=== PATIENT | female | born 1985 | race Caucasian/White ===

== ENCOUNTER 2020-03-04 02:42 | Emergency (ER) | payer MEDICAID, SELFPAY ==
[2020-03-04 02:44] VITALS: BP 130/96; PULSE 100; RESP 18; TEMP 37.2; O2SAT 98; BMI 38.6
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
[2020-03-04 05:35] VITALS: BP 101/46; PULSE 84; RESP 16; O2SAT 98
== END 2020-03-04 07:16 | disposition home or self-care (01) ==
PROVIDERS: Emergency Provider Emergency Medicine; PCP Nurse Practitioner Family
DX: S00.83XA Contusion of other part of head, initial encounter (principal); Y04.2XXA Assault by strike against or bumped into by another person, initial encounter; Y93.9 Activity, unspecified; Y92.9 Unspecified place or not applicable; Y99.9 Unspecified external cause status; Z72.0 Tobacco use
CPT/HCPCS: 70450; 70486; 99284

== ENCOUNTER 2020-04-24 15:35 | Emergency (ER) | payer MEDICAID, SELFPAY ==
[2020-04-24 15:36] VITALS: BP 133/76; PULSE 102; RESP 18; TEMP 36.4; O2SAT 96; BMI 37.7
--- NOTE | 2020-04-24 15:40 | RAD_ITS ---
STUDY: X-RAY - RIGHT FOOT CLINICAL: Female, 34 years old. Pt. dropped a heavy suitcase on her foot two weeks ago, pain and swelling TECHNIQUE: 3 view(s) of the foot. COMPARISON: None. FINDINGS: Normal talus, calcaneus, and tarsal bones. Normal visualized subtalar, talonavicular, calcaneocuboid, tarsal and tarsometatarsal articulations. Nondisplaced transverse fracture through the mid shaft of the fourth metatarsal. There is degenerative arthrosis of the metatarsophalangeal joint of the hallux with a hallux valgus deformity. Normal tibial and fibular sesamoid bones. Normal interphalangeal joint of the great toe. Normal phalanges of the great toe. Normal second through fifth metatarsophalangeal joints. Normal interphalangeal joints and phalanges of the lesser toes. Soft tissue swelling. RAD/Foot min 3 Views IMPRESSION: Nondisplaced transverse fracture through the midshaft of the fourth metatarsal with overlying soft tissue swelling. Hallux valgus deformity. Electronically Signed: Jonah Muse, at 15:58 EDT , Service support ,
--- NOTE | 2020-04-24 16:31 | ED.VIS.GEN ---
History of Present Illness Chief Complaint: Lower Extremity Injury Informant: Patient Narrative: Patient was being honest with me she tells me 2 weeks ago a pallet skid ran over her foot, she told everyone it was a suitcase because she wanted to keep working. She is on her feet at 2 jobs and continues to work but today the pain was too bad and she had to leave work early. She is complaining of right foot pain, no other injuries. Past Medical History - Allergies and Home Meds Allergies/Adverse Reactions: Allergies levofloxacin [From Levaquin] Allergy (Verified 04/24/20 15:40) Rash Penicillins Allergy (Verified 04/24/20 15:40) Nausea Primary Care Physician: Sancho Teresa NP-C [Primary Care Provider] - Past Medical History: None Smoking Status: Current every day smoker Review of Systems Musculoskeletal: Reports: Extremity Pain Skin: Denies: Abrasions Neurological: Denies: Weakness, Parasthesia Hematologic: Denies: Easy bruising, Easy bleeding Physical Exam Vital Signs/Narrative: Vital Signs Temp Pulse Resp BP Pulse Ox 04/24/20 15:36 97.5 F L 102 H 18 133/76 H 96 General: Well nourished, Well developed Head: Normocephalic, Atraumatic Respiratory: No distress Back: Nontender Extremities: - - There is tenderness over the midfoot on the fourth metatarsal region. There is some swelling. No laceration. Skin: Normal color, No rash Neurological: Normal Strength, Normal Sensation Diagnostic/Tx/Re-eval Right foot x-ray interpreted by me and the radiologist reveals a fourth metatarsal transverse fracture. - Medical Decision Making Patient will be placed in a boot orthosis. I will refer her to podiatry. She is not to walk on it until being seen by podiatry she is refusing crutches. I told her she needs to take time off work I will give her a note for the rest of the week since this is Thursday it should give her enough time to see podiatry and come up with the plan. I explained to her multiple times that she cannot walk on it and she cannot go back to work until cleared by podiatry. She stated back to me that she understands. ED Disposition - Plan for ED Patient: Disposition: Home or Assisted Living Diagnosis: Foot fracture, right Instructions: ED FOOT FRACTURE Prescriptions: Oxycodone HCl/Acetaminophen [Percocet 5/325] 1 tab PO Q6H PRN PRN 3 Days #12 tab PRN Reason: Pain Prescription Printed Referrals: Chato Summers DPM [STAFF PHYSICIAN] - 3-5 Days
[2020-04-24 16:47] VITALS: RESP 18
== END 2020-04-24 16:50 | disposition home or self-care (01) ==
LOC: ED 16:52
PROVIDERS: Emergency Provider Emergency Medicine; PCP Nurse Practitioner Family
DX: S92.344A Nondisplaced fracture of fourth metatarsal bone, right foot, initial encounter for closed fracture (principal); W31.89XA Contact with other specified machinery, initial encounter; Y93.89 Activity, other specified; Y92.89 Other specified places as the place of occurrence of the external cause; Y99.0 Civilian activity done for income or pay; F17.200 Nicotine dependence, unspecified, uncomplicated
CPT/HCPCS: 73630; 99282

== ENCOUNTER 2020-05-22 13:30 | Emergency (ER) | payer MEDICAID, SELFPAY ==
[2020-05-22 13:30] VITALS: BP 137/68; PULSE 89; RESP 16; TEMP 36.5; O2SAT 99; BMI 36.2
--- NOTE | 2020-05-22 14:21 | ED.DCSUM_ITS ---
History of Present Illness Chief Complaint: Headache Informant: Patient Onset: Days Context: Gradual Onset Timing: Continuous Current Severity: Moderate Maximum Severity: Moderate Narrative: The patient is a 34-year-old female with medical history significant for migraine that presents to the emergency department migraine headache. Patient states she is had a dull progressive headache since Thursday. She states on Thursday, she had a low-grade fever. She states she took Tylenol and abated. She noticed that she had a cold sore inside her mouth. She states that that is since resolved. She said she was not a lot of work because she had a fever. She states the migraine has been constant and that is the reason that she came in. She denies neck pain. She denies any weakness or numbness. She denies any other infectious symptoms. She states today, she was actually feeling improved but still had a mild migraine. Prior similar symptoms: Yes Recent Illness/Hospitalization: No Past Medical History - Allergies and Home Meds Allergies/Adverse Reactions: Allergies levofloxacin [From Levaquin] Allergy (Verified 05/22/20 13:33) Rash Penicillins Allergy (Verified 05/22/20 13:33) Nausea Primary Care Physician: Sancho Teresa SENIOR C SOFTWARE DEVELOPER, SENIOR C SOFTWARE DEVELOPER-C [Primary Care Provider] - Prior records reviewed: Yes Past Medical History: - - Neuropathy Surgical History: noncontributory Smoking Status: Current every day smoker Review of Systems General: Reports: Fever. Denies: Chills, Sweats Eyes: Denies: Visual changes - bilaterally, Diplopia ENT: Denies: Rhinorrhea, Sore throat Cardiovascular: Denies: Chest pain, Palpitations Respiratory: Denies: Dyspnea, Cough, Dyspnea on exertion Gastrointestinal: Reports: Nausea. Denies: Abdominal pain, Vomiting, Diarrhea, Melena, Hematochezia Genitourinary: Denies: Dysuria, Hematuria, Frequency Musculoskeletal: Denies: Back pain, Extremity Pain Skin: Denies: Rash, Wounds Neurological: Reports: Headache. Denies: Weakness, Numbness Physical Exam Vital Signs/Narrative: Vital Signs Temp Pulse Resp BP Pulse Ox 05/22/20 13:30 97.7 F L 89 16 137/68 H 99 Inital Vital Signs reviewed: Yes General: Well nourished, Well developed, No Acute Distress Head: Normocephalic, Atraumatic Eyes: Perrl, EOMI ENT: Moist mucous membranes, No rhinorrhea Neck: Supple, Nontender Cardiovascular: Regular rate, Regular rhythm, No murmurs Respiratory: No distress, CTA bilaterally, Chest nontender Abdomen: Soft, Nontender, Nondistended, Normal bowel sounds Back: Nontender, Normal Inspection Extremities: Nontender, No edema Skin: Normal color, No rash Neurological: Alert, Oriented x3, Cranial nerves II-XII grossly intact, Normal Strength, Normal Sensation Psychological: Normal affect, Normal Mood Diagnostic/Tx/Re-eval - Medical Decision Making The patient presents with typical migraine headache. She is not meningitic. She is not encephalopathic. She states today she is actually starting to feel better. The patient was treated with migraine abortive medications. On reevaluation, she is feeling improved. At this point, I do feel that she is safe for outpatient follow-up. Again, her neurologic exam is reassuring. She will be discharged home. Impression 1. Migraine headache ED Disposition - Plan for ED Patient: Instructions: ED, Migraine (Classical) Referrals: Sancho Teresa NP, SENIOR C SOFTWARE DEVELOPER-C [Primary Care Provider] -
[2020-05-22] MEDS: 0.9% Normal Saline 1,000 ML 999 ML IV (14:58)
[2020-05-22] MEDS: proCHLORPERazine 10 MG/2 ML Vial IV (14:59)
[2020-05-22] MEDS: Ketorolac 15 MG/ML Vial IV (14:59)
[2020-05-22] MEDS: DiphenhydrAMINE 50 MG/ML Syringe IV (14:59)
[2020-05-22 15:49] VITALS: BP 119/78; PULSE 84; RESP 18; O2SAT 98
--- NOTE | 2020-05-22 15:50 | ED.RN ---
THIS NURSE REVIEWED D/C INSTRUCTIONS WITH PT. PT VERBALIZED UNDERSTANDING OF INSTRUCTIONS. IV D/C. IV CATHETER INTACT. PT TOLERATED WELL. PT DENIES FURTHER NEEDS OR QUESTIONS AT THIS TIME. PT AMBULATES FROM ROOM ON OWN WITHOUT ASSISTANCE FROM STAFF
== END 2020-05-22 15:52 | disposition home or self-care (01) ==
PROVIDERS: Emergency Provider Emergency Medicine; PCP Nurse Practitioner Family
DX: G43.909 Migraine, unspecified, not intractable, without status migrainosus (principal); R50.9 Fever, unspecified; G62.9 Polyneuropathy, unspecified; F17.200 Nicotine dependence, unspecified, uncomplicated; Z79.899 Other long term (current) drug therapy
CPT/HCPCS: 96361; 96374; 96375; 99284; J7030; A4216

== ENCOUNTER 2020-06-14 15:38 | Emergency (ER) | payer MEDICAID, SELFPAY ==
[2020-06-14 15:38] VITALS: BP 136/82; PULSE 78; RESP 18; TEMP 36.8; O2SAT 100; BMI 36.6
[2020-06-14 15:56] LABS: Mucous, Urine 0 SEEN /hpf (<or=2+)
[2020-06-14 16:01] LABS: Color, Urine Yellow (Yellow); Glucose, Dipstick Normal (Normal); Ketone-Dipstick Negative (Negative); Leukocyte Esterase-Dipstick 500 /ul (Negative); Nitrite-Dipstick Negative (Negative); Occult Blood-Urine 25 /ul (Negative); Protein-Dipstick 15 mg/dl (Negative); Urine Bilirubin Dipstick Negative (Negative); Urine Clarity Cloudy (Clear); Urine Urobilinogen 1 mg/dl (Normal)
[2020-06-14 16:07] LABS: Amorphous Sediment 1+ PHOS; Bacteria RARE /hpf (None Seen); Internal QC Validated? YES +Cl - CLEAR BKGD; Pregnancy, Urine Negative Negative; Red Blood Cells-Urine 0-5 SEEN /hpf (0-5); Squamous Epithelial Cells - UA 10-25 SEEN /hpf (5-10); White Blood Cells 25-50 SEEN /hpf (0-5)
--- NOTE | 2020-06-14 16:15 | ED.DCSUM_ITS ---
History of Present Illness Chief Complaint: Complaint Informant: Patient Onset: Days Context: Gradual Onset Timing: Continuous Current Severity: Mild Maximum Severity: Moderate Narrative: Patient is a 34-year-old female with history of neuropathy that presents to the emergency department with dysuria, urinary frequency, and vaginal pain. Patient states that she is had prior herpes outbreaks in the past. She states that the past 10 days, she has been having difficulty urinating and pain when she goes. She also noticed a rash on the left side of her labia. She denies any fevers or chills. She is otherwise been in her normal state of health. Prior similar symptoms: No Recent Illness/Hospitalization: No Past Medical History - Allergies and Home Meds Allergies/Adverse Reactions: Allergies levofloxacin [From Levaquin] Allergy (Verified 06/14/20 15:41) Rash Penicillins Allergy (Verified 06/14/20 15:41) Nausea Primary Care Physician: Sancho Teresa POWER SAW MECHANIC, POWER SAW MECHANIC-C [Primary Care Provider] - Prior records reviewed: Yes Past Medical History: - - Neuropathy Surgical History: noncontributory Smoking Status: Current every day smoker Review of Systems General: Denies: Chills, Fever, Sweats Eyes: Denies: Visual changes - bilaterally, Diplopia ENT: Denies: Rhinorrhea, Sore throat Cardiovascular: Denies: Chest pain, Palpitations Respiratory: Denies: Dyspnea, Cough, Dyspnea on exertion Gastrointestinal: Denies: Abdominal pain, Nausea, Vomiting, Diarrhea, Melena, Hematochezia Genitourinary: Reports: Dysuria, Frequency. Denies: Hematuria Musculoskeletal: Denies: Back pain, Extremity Pain Skin: Denies: Rash, Wounds Neurological: Denies: Headache, Weakness, Numbness Physical Exam Vital Signs/Narrative: Vital Signs Temp Pulse Resp BP Pulse Ox 06/14/20 15:38 98.3 F 78 18 136/82 H 100 Inital Vital Signs reviewed: Yes General: Well nourished, Well developed, No Acute Distress Head: Normocephalic, Atraumatic Eyes: Perrl, EOMI ENT: Moist mucous membranes, No rhinorrhea Neck: Supple, Nontender Cardiovascular: Regular rate, Regular rhythm, No murmurs Respiratory: No distress, CTA bilaterally, Chest nontender Abdomen: Soft, Nontender, Nondistended, Normal bowel sounds Back: Nontender, Normal Inspection Extremities: Nontender, No edema Skin: Normal color, No rash Neurological: Alert, Oriented x3, Cranial nerves II-XII grossly intact, Normal Strength, Normal Sensation Psychological: Normal affect, Normal Mood Diagnostic/Tx/Re-eval - Medical Decision Making Pelvic exam was done with female nurse flight controls engineer. The patient does have vesicles consistent with herpes outbreak along the left outer labia and the perineum. There is no secondary cellulitis. Urine was obtained which did show some evidence of acute cystitis. The patient is not . At this point, she will be treated with Valtrex and Macrobid. She is comfortable with this plan of care and we discharged home. Impression 1. Acute cystitis 2. Genital herpes outbreak ED Disposition - Plan for ED Patient: Instructions: ED Urethritis Infec Vs Inflam Adult Female Prescriptions: Nitrofurantoin Macrocrystals [Macrobid] 100 mg PO Q12 #14 cap Prescription Printed Valacyclovir HCl [Valacyclovir] 1,000 mg PO TID #21 tab Prescription Printed Referrals: Sancho Teresa NP, POWER SAW MECHANIC-C [Primary Care Provider] -
[2020-06-14 16:23] VITALS: BP 127/74; PULSE 90; RESP 16; O2SAT 100
== END 2020-06-14 16:24 | disposition home or self-care (01) ==
LOC: ED 16:06
PROVIDERS: Emergency Provider Emergency Medicine; PCP Nurse Practitioner Family
DX: N30.00 Acute cystitis without hematuria (principal); A60.04 Herpesviral vulvovaginitis; G62.9 Polyneuropathy, unspecified; Z79.899 Other long term (current) drug therapy; F17.200 Nicotine dependence, unspecified, uncomplicated
CPT/HCPCS: 81001; 81025; 99281; 99283

== ENCOUNTER 2020-06-22 15:45 | Emergency (ER) | payer MEDICAID, SELFPAY ==
[2020-06-22 15:46] VITALS: BP 126/78; PULSE 86; RESP 15; TEMP 36.4; O2SAT 98; BMI 36.6
--- NOTE | 2020-06-22 16:10 | RAD_ITS ---
STUDY: X-RAY - LEFT KNEE REASON FOR EXAM: Female, 34 years old. PAIN MEDIALLY S/P FALLING DOWN STAIRS LAST NIGHT TECHNIQUE: For view(s) of the knee. COMPARISON: None. FINDINGS: Normal visualized distal femur. Normal visualized proximal tibia and fibula. Normal proximal tibiofibular articulation. There is mild degenerative arthrosis of the medial femorotibial compartment. There is severe degenerative arthrosis of the lateral femorotibial compartment with severe joint space narrowing. There is moderate degenerative arthrosis of the patellofemoral articulation. The soft tissue structures are unremarkable. RAD/Knee 4 or More Views IMPRESSION: Degenerative arthrosis. Electronically Signed: Marvin Kearns MD at 16:27 EDT Tel , Service support ,
--- NOTE | 2020-06-22 17:08 | ED.VISSUMM ---
- ER Visit Summary Date of Service: 06/22/20 Chief Complaint: Left knee pain History of Present Illness: The patient is a 34 F who presents with left knee pain that began after a fall yesterday. Patient states she fell approximately 30 steps. Patient states her pain is worse today. Patient describes her pain as throbbing, aching, and pulling. Patient states her pain is worse with standing. Patient states nothing has helped her pain. Patient denies any paresthesias or weakness. Patient denies any head injury or loss of consciousness. Physical Examination: Vital signs are stable. Patient is afebrile. Patient is in no acute distress. Musculoskeletal exam reveals tenderness over the medial aspect of the left knee. There is no bony crepitance or step-off. There is no deformity noted. Range of motion was limited in flexion secondary to pain. There is no laxity however, the patient is guarding on exam. Sensation was intact to light touch bilateral lower extremities. Strength is 5/5 bilaterally in lower extremities. Posterior tibial pulses are equal bilateral. Test Results: X-rays of the left knee were obtained. There is no acute fracture. These were interpreted by the radiologist and reviewed by myself. Emergency Department Course and Treatment: Patient was given a dose of Pratt here. Patient was given a knee immobilizer. Patient was instructed to ice and elevate the left knee. Patient was given a prescription for short course of Pratt. Patient was instructed to follow-up with her primary care physician in 5 to 7 days. Patient understood and was agreeable with the plan. All questions were answered. Disposition: Discharge home Impression: Left knee sprain This note was generated with [employer] dictation software. It may contain incorrect words, spelling, and punctuation that were not noted in review of the chart prior to signing ED Disposition - Plan for ED Patient: Disposition: Home or Assisted Living Diagnosis: Left knee sprain Instructions: ED Sprain Knee Prescriptions: Hydrocodone Bitart/Apap 5-325 [Pratt 5MG-325MG] 1 tab PO Q6H PRN PRN 3 Days #10 tab PRN Reason: Pain Prescription Printed Referrals: Sancho Teresa NP, MANUAL TRAINING TEACHER-C [Primary Care Provider] - 5-7 Days
[2020-06-22] MEDS: HYDROcodone Bitartrate/Apap 5/325 Tablet PO (17:28)
== END 2020-06-22 17:35 | disposition home or self-care (01) ==
PROVIDERS: Emergency Provider Emergency Medicine; PCP Nurse Practitioner Family
DX: S83.92XA Sprain of unspecified site of left knee, initial encounter (principal); W10.9XXA Fall (on) (from) unspecified stairs and steps, initial encounter; Y93.9 Activity, unspecified; Y92.9 Unspecified place or not applicable; Y99.9 Unspecified external cause status; Z72.0 Tobacco use; Z79.899 Other long term (current) drug therapy
CPT/HCPCS: 73564; 99282

== ENCOUNTER 2020-07-05 19:46 | Emergency (ER) | payer MEDICAID, SELFPAY ==
[2020-07-05 19:47] VITALS: BP 133/76; PULSE 97; PULSE 99; RESP 18; TEMP 36.2; O2SAT 99; BMI 38.3
--- NOTE | 2020-07-05 20:13 | ED.DCSUM_ITS ---
- ER Visit Summary Date of Service: 07/05/20 Chief Complaint: Back pain History of Present Illness: The patient is a 34 F who presents with back pain that became worse today. Patient has a history of sciatica but states it became worse today. Patient states she also has pain in her left knee and feels like her left knee may want to give out from time to time. Patient states her pain is worse with prolonged standing and sitting. Patient states nothing seems to help with the pain. Patient denies any bowel or bladder changes. Patient denies any saddle anesthesia. Patient admits to some numbness and tingling in the left thigh and knee area. Physical Examination: Vital signs are stable. Patient is afebrile. Patient is in no acute distress. Musculoskeletal exam reveals tenderness and spasm of the left lumbar paraspinal muscles. There is no midline tenderness. There is no bony crepitance or step-off. Range of motion was limited in all motions of the lumbar spine secondary to pain. Strength is 5/5 bilateral in the lower extremities. There are no sensory deficits noted. Deep tendon reflexes are 2/4 bilaterally in the lower extremities. Straight leg raises were negative bilaterally. Emergency Department Course and Treatment: Patient was given an injection of Toradol here. Patient was also given a dose of Norflex here. Patient was given a prescription for Naprosyn and Norflex. Patient was instructed to follow-up with her primary care physician in 3 to 5 days. Patient was also given a note for work for today. Patient understood and was agreeable with the plan. All questions were answered. Disposition: Discharge home Impression: Sciatica This note was generated with [employer] dictation software. It may contain incorrect words, spelling, and punctuation that were not noted in review of the chart prior to signing ED Disposition - Plan for ED Patient: Disposition: Home or Assisted Living Diagnosis: Sciatica of left side Instructions: ED LUMBAR RADICULOPATHY Prescriptions: Naproxen [Naprosyn] 500 mg PO BID PRN #20 tab Prescription Printed Orphenadrine [Norflex ER] 100 mg PO QHS PRN PRN #10 tab PRN Reason: Muscle Spasm Prescription Printed Referrals: Sancho Teresa NP, KETTLE ROOM HELPER-C [Primary Care Provider] -
[2020-07-05] MEDS: Orphenadrine 100 MG Tablet PO (20:30)
[2020-07-05] MEDS: Ketorolac 60 MG/2 ML Vial IM (20:30)
== END 2020-07-05 20:46 | disposition home or self-care (01) ==
LOC: ED 20:18
PROVIDERS: Emergency Provider Emergency Medicine; PCP Nurse Practitioner Family
DX: M54.42 Lumbago with sciatica, left side (principal); G89.29 Other chronic pain; M25.562 Pain in left knee; E66.9 Obesity, unspecified; Z72.0 Tobacco use; Z79.899 Other long term (current) drug therapy
CPT/HCPCS: 96372; 99283; A4216

== ENCOUNTER 2020-10-10 00:04 | Emergency (ER) | payer MEDICAID, SELFPAY ==
[2020-10-10 00:05] VITALS: BP 157/131; PULSE 102; RESP 18; TEMP 36.1; O2SAT 100; BMI 37.4
--- NOTE | 2020-10-10 00:16 | ED.VIS.GEN ---
History of Present Illness Chief Complaint: Lower Extremity Injury Informant: Patient Narrative: Presents with chronic left knee pain. It flared up about 2 weeks ago. She has swelling and discomfort. She has been using [id number] with minimal relief of symptoms. Had x-ray of her left knee in May after a fall. She stated she is had chronic pain since she was 13 in this knee. Her x-ray showed nothing acute per patient. She has not followed up with a specialist. Sometimes she get some intermittent swelling mainly on the medial aspect. Current severity is mild to moderate. Worse by walking and standing throughout her work. Past Medical History - Allergies and Home Meds Allergies/Adverse Reactions: Allergies levofloxacin [From Levaquin] Allergy (Verified 10/10/20 00:08) Rash Penicillins Allergy (Verified 10/10/20 00:08) Nausea Primary Care Physician: Sancho Teresa NP, IMAGING TECH-C [Primary Care Provider] - Prior records reviewed: Yes Past Medical History: - Surgical History: noncontributory Lives: With Family Smoking Status: Current every day smoker Alcohol: None Drugs: None Review of Systems General: Denies: Chills, Fever, Sweats Eyes: Denies: Visual changes - bilaterally, Diplopia ENT: Denies: Rhinorrhea, Sore throat Cardiovascular: Denies: Chest pain, Palpitations Respiratory: Denies: Dyspnea, Cough, Dyspnea on exertion Gastrointestinal: Denies: Abdominal pain, Nausea, Vomiting, Diarrhea, Melena, Hematochezia Genitourinary: Denies: Dysuria, Hematuria, Frequency Musculoskeletal: Reports: Swelling, Extremity Pain. Denies: Back pain Skin: Denies: Rash, Wounds Neurological: Denies: Headache, Weakness, Numbness Physical Exam Vital Signs/Narrative: Vital Signs Temp Pulse Resp BP Pulse Ox 10/10/20 00:05 97 F L 102 H 18 157/131 H 100 General: Well nourished, Well developed, No Acute Distress Head: Normocephalic, Atraumatic Eyes: Perrl, EOMI ENT: Moist mucous membranes, No rhinorrhea Neck: Supple, Nontender Cardiovascular: Regular rate, Regular rhythm, No murmurs Respiratory: No distress, CTA bilaterally, Chest nontender Abdomen: Soft, Nontender, Nondistended, Normal bowel sounds Back: Nontender, Normal Inspection Extremities: No edema, Tenderness - Nurse on the medial aspect the left knee.. Negative for: Calf Tenderness Skin: Normal color, No rash Neurological: Alert, Oriented x3, Cranial nerves II-XII grossly intact, Normal Strength, Normal Sensation Psychological: Normal affect, Normal Mood Diagnostic/Tx/Re-eval - Medical Decision Making At this time the patient has mild chronic tenderness in the medial aspect of the knee. I do not feel she needs a repeat x-ray. She has normal range of motion. I do not think she has a DVT. She may need outpatient MRI. Given referral to orthopedics. Given John wrap injection of morphine for pain to help her tonight. She will ice. Given crutches. Given a prescription for Mobic. This could be meniscus or ligament related ED Disposition - Plan for ED Patient: Disposition: Home or Assisted Living Diagnosis: Left knee pain Instructions: ED Knee Pain of Uncertain Cause Prescriptions: Meloxicam [Mobic] 15 mg PO DAILY #30 tab Transmission Status: Pending to [id number] Referrals: Dominic Fowler MD [STAFF PHYSICIAN] -
[2020-10-10] MEDS: Morphine 4 MG/ML Syringe IM (00:21)
[2020-10-10 00:44] VITALS: BP 137/81; PULSE 90; RESP 18; O2SAT 99
== END 2020-10-10 00:47 | disposition home or self-care (01) ==
LOC: ED 00:22
PROVIDERS: Emergency Provider Emergency Medicine; PCP Nurse Practitioner Family
DX: M25.562 Pain in left knee (principal); G89.29 Other chronic pain; F17.200 Nicotine dependence, unspecified, uncomplicated; Z79.899 Other long term (current) drug therapy
CPT/HCPCS: 96372; 99283

== ENCOUNTER 2021-01-07 17:46 | Inpatient (IN) | payer MEDICAID, SELFPAY ==
[2021-01-07 17:48] VITALS: BP 129/83; PULSE 112; RESP 18; TEMP 36.1; O2SAT 98; BMI 39.9
--- NOTE | 2021-01-07 17:52 | EX.ED.DYSGE1 ---
HPI History of Present Illness Chief Complaint: Substance Abuse Informant: patient Onset/Context/Timing Onset: Days Context: Gradual Onset Timing: Continuous Current Severity: Moderate Maximum Severity: Moderate Narrative Prior similar symptoms: Yes Recent Illness/Hospitalization: No PFSH PFSH Home Medications gabapentin 600 mg PO TIDCM 06/22/20 [History Last Taken 06/22/20] fluoxetine 10 mg PO DAILY 07/05/20 [History Last Taken Unknown] orphenadrine citrate 100 mg PO QHS PRN PRN #10 tab 07/05/20 [Rx Last Taken Unknown] meloxicam 15 mg PO DAILY #30 tab 10/10/20 [Rx Last Taken Unknown] pantoprazole 20 mg PO DAILY 10/10/20 [History Last Taken Unknown] propranolol 80 mg PO DAILY 10/10/20 [History Last Taken Unknown] Allergy/AdvReac Type Severity Reaction Status Date / Time levofloxacin [From Levaquin] Allergy Rash Verified 01/07/21 17:46 Penicillins Allergy Nausea Verified 01/07/21 17:46 Social History Smoking Status: Current every day smoker EXAM Physical Exam Const Vital Signs: 01/07/21 17:48 Temperature 97.0 F L Temperature Source Temporal Pulse Rate 112 H Respiratory Rate 18 Blood Pressure 129/83 H Blood Pressure Mean 98 Pulse Ox 98 Oxygen Delivery Method Room Air Discharge Plan Triage Chief Complaint: Substance Abuse ED Provider: Tra Harrell Dx/Rx/DC Orders Prescriptions: No Action gabapentin 600 MG tablet 600 mg PO TIDCM RF: 0 fluoxetine 10 MG capsule 10 mg PO DAILY RF: 0 orphenadrine citrate 100 MG tablet 100 mg PO QHS PRN PRN (Reason: Muscle Spasm) Qty: 10 RF: 0 pantoprazole 20 MG tablet 20 mg PO DAILY RF: 0 propranolol 80 MG capsule 80 mg PO DAILY RF: 0 meloxicam 15 MG tablet 15 mg PO DAILY Qty: 30 RF: 0 Primary Care Provider: Sancho Teresa NP
--- NOTE | 2021-01-07 18:02 | EDS_ITS ---
HPI History of Present Illness Chief Complaint: Substance Abuse Informant: patient Onset/Context/Timing Onset: Days Context: Gradual Onset Timing: Continuous Current Severity: Moderate Maximum Severity: Moderate Narrative Narrative: The patient is a 35-year-old female presents to the emergency department questing detox. The patient states that she does use heroin. She states she uses daily. She does inject. She states she did not use this morning. She had been sober for 4 years. She states that she broke her foot about a year ago and started back with analgesics. She states that she began to start using again. She has tried to detox as an outpatient with Suboxone. She states she just cannot effectively control her symptoms with Suboxone. She denies being suicidal or homicidal. Prior similar symptoms: Yes Recent Illness/Hospitalization: No PFSH PFSH Medical History (Updated 01/07/21 @ 18:06 by Issa Weathers) Anxiety Neuropathy no medical history Home Medications gabapentin 600 mg PO TIDCM 06/22/20 [History Last Taken 06/22/20] fluoxetine 10 mg PO DAILY 07/05/20 [History Last Taken Unknown] pantoprazole 20 mg PO DAILY 10/10/20 [History Last Taken Unknown] Allergy/AdvReac Type Severity Reaction Status Date / Time levofloxacin [From Levaquin] Allergy Rash Verified 01/07/21 17:46 Penicillins Allergy Nausea Verified 01/07/21 17:46 Social History Smoking Status: Current every day smoker ROS ROS ED Constitutional Constitutional ED: Denies chills or fever(s) Eyes Eyes: Denies blurry vision or change in vision ENT ENT ED: Denies ear pain or sore throat Cardiovascular Cardiovascular: Denies chest pain or palpitations Respiratory/Chest Respiratory/Chest: Denies cough, dyspnea or dyspnea on exertion Gastrointestinal Gastrointestinal: Denies abdominal pain, nausea or vomiting Genitourinary Genitourinary ED: Denies dysuria or urinary frequency Musculoskeletal Musculoskeletal: Denies arthralgias or myalgias Integumentary Denies rash Neurologic Neurologic: Denies headache(s) or paresthesias Psychiatric Psychiatric: Denies anxiety or depression Endocrine Endocrinology: Denies polydipsia or polyuria Allergic/Immunologic Allergic/Immunologic ED: Denies urticaria EXAM Physical Exam Const Vital Signs: 01/07/21 17:48 Temperature 97.0 F L Temperature Source Temporal Pulse Rate 112 H Respiratory Rate 18 Blood Pressure 129/83 H Blood Pressure Mean 98 Pulse Ox 98 Oxygen Delivery Method Room Air Positive well nourished and well developed General Appearance ED: well developed HEENT Reports normocephalic, head/scalp atraumatic and moist mucous membranes Eyes PERRL and EOMs intact bilaterally Neck no lymphadenopathy and supple General: Negative for tenderness Chest Wall inspection of chest normal Resp normal respiratory effort and clear to auscultation bilaterally Cardio regular rate, regular rhythm and no murmurs GI normal to inspection, nondistended, normoactive bowel sounds Palpation: Negative for tender, guarding or rebound tenderness present Back/Spine no CVA tenderness Cervical Spine: Negative for cervical spine tenderness Thoracic Spine / Upper Back: Negative for thoracic spinal tenderness Extremity normal to inspection General Extremety ED: Negative for tenderness Neuro oriented x3 and CN's II-XII intact bilaterally Neuro Narrative: No focal deficits appreciated. Sensorium / Orientation: alert Psych mental status grossly normal Skin no rashes or lesions noted, no wounds and skin turgor normal MDM MDM MDM Narrative Medical decision making narrative: Patient presents requesting detox from heroin. Metabolic work-up was pursued. She does have chronic anemia, otherwise labs are unremarkable. Tox is currently pending. The patient was discussed with the hospitalist for inpatient opiate detox. Impression 1. Opiate withdrawal Lab Data Attestation: I reviewed the patient's lab results. Labs: Laboratory Results - last 24 hr 01/07/21 01/07/21 01/07/21 18:25 18:25 18:55 WBC 6.9 RBC 4.46 Hgb 9.2 L Hct 31.1 L MCV 69.7 L MCH 20.6 L MCHC 29.6 L RDW Std Deviation 50.1 H RDW Coeff of Oscar 20.0 H Plt Count 280 MPV 9.6 Immature Gran % (Auto) 0.400 Neut % (Auto) 56.5 Lymph % (Auto) 34.3 [place] % (Auto) 6.3 Eos % (Auto) 2.2 Baso % (Auto) 0.3 Absolute Neuts (auto) 3.9 Absolute Lymphs (auto) 2.35 Nucleated RBC % 0 Sodium 139 Potassium 3.4 L Chloride 108 H Carbon Dioxide 25.0 Anion Gap 6 BUN 8 Creatinine 0.95 Estim Creat Clear Calc 74.38 Est GFR (MDRD) Af Amer 86 Est GFR (MDRD) Non-Af 71 BUN/Creatinine Ratio 8.4 L Glucose 127 H Calcium 8.7 Ur Drug Screen Comment Discharge Plan Triage Chief Complaint: Substance Abuse ED Provider: Tra Harrell Dx/Rx/DC Orders Prescriptions: No Action gabapentin 600 MG tablet 600 mg PO TIDCM RF: 0 fluoxetine 10 MG capsule 10 mg PO DAILY RF: 0 pantoprazole 20 MG tablet 20 mg PO DAILY RF: 0 Primary Care Provider: Sancho Teresa NP
[2021-01-07 18:41] LABS: Absolute Lymphocyte Count 2.35 X10^3/uL (0.83-4.51); Absolute Neutrophil Count 3.9 X10^3/uL (2.0-7.7); Basophil# 0.02 X10^3/uL; Basophil% 0.3 % (0-1); Eosinophil# 0.15 X10^3/uL; Eosinophils% 2.2 % (0-5); Hematocrit 31.1 % (37-47); Hemoglobin 9.2 g/dL (12.0-15.0); Lymphocyte # 2.35 X10^3/ul (0.83-4.51); Lymphocyte % 34.3 % (19-41); Mean Corp Hgb Conc 29.6 g/dL (32-36); Mean Corpuscular Hgb 20.6 pg (27.0-32.0); Mean Corpuscular Volume 69.7 fL (81-99); Mean Platelet Vol. 9.6 fl (6.2-12.0); Monocyte# 0.43 X10^3/uL; Monocyte% 6.3 % (0-10); NRBC Flagged by Analyzer 0 % (0-5); Neutrophil # 3.88 X10^3/uL (2.7-7.7); Neutrophil % 56.5 % (47-70); Platelet Count 280 K/mm3 (150-450); RBC Distribution Width SD 50.1 fl (35.1-43.9); Red Blood Count 4.46 M/mm3 (4.2-5.4); White Blood Count 6.9 K/mm3 (4.4-11.0)
[2021-01-07 18:52] LABS: Anion Gap 6 (5-15); BUN 8 mg/dL (7-18); BUN/Creat Ratio 8.4 RATIO (10-20); Calcium,Total 8.7 mg/dL (8.5-10.1); Chloride 108 mmol/L (98-107); Creatinine, Serum 0.95 mg/dL (0.55-1.02); EST Glomerular Filtration Rate 71 mL/min (>60); Est Glom Filt Rate - Afr Amer 86 mL/min (>60); Estimated Creatinine Clearance 74.38 ml/min; Glucose 127 mg/dL (74-106); Potassium 3.4 mmol/L (3.5-5.1); Sodium Level 139 mmol/L (136-145)
--- NOTE | 2021-01-07 19:20 | HP.PCM_ITS ---
HPI - General General Date of Admission: 01/07/21 HPI Narrative KAMERON SCHWARTZ, is a 35 F who presents requesting withdrawal protocol for opiate abuse. The patient has a history of long-term opiate abuse beginning in her teenage years ,however, she states she has been 3 years clean up until recently when she had a fracture in her foot for which she received Percocet. Since that time her use of opiates has expanded to snorting opiates and recently in the last few weeks started injecting heroin again. She states she has chronic left leg pain but otherwise no medical history. Patient denies chest pain shortness of breath fever chills nausea vomiting or diarrhea. Patient does have remote history of a severe infection of her left arm with necrotizing fasciitis secondary to IV drug abuse. Patient will be admitted to general medical floor and placed on substance abuse withdrawal protocol. [facility] Medical History (Updated 01/07/21 @ 19:[address] Abraham Campbell MD) Anxiety Neuropathy Home Medications gabapentin 600 mg PO TIDCM 06/22/20 [History Last Taken 06/22/20] fluoxetine 10 mg PO DAILY 07/05/20 [History Last Taken Unknown] pantoprazole 20 mg PO DAILY 10/10/20 [History Last Taken Unknown] Allergy/AdvReac Type Severity Reaction Status Date / Time levofloxacin [From Levaquin] Allergy Rash Verified 01/07/21 17:46 Penicillins Allergy Nausea Verified 01/07/21 17:46 Social History Smoking Status: Current every day smoker ROS Musculoskeletal Musculoskeletal: Reports extremity pain Psychiatric Psychiatric: Reports anxiety Vital Signs Vital Signs Vital Signs: 01/07/21 17:48 Temperature 97.0 F L Temperature Source Temporal Pulse Rate 112 H Respiratory Rate 18 Blood Pressure 129/83 H Blood Pressure Mean 98 Pulse Ox 98 Oxygen Delivery Method Room Air Physical Exam Const alert and oriented x3 General Appearance: cooperative HEENT head/scalp atraumatic Eyes PERRL and EOMs intact bilaterally Neck supple Lymph Lymphatic: no lymphadenopathy noted Resp normal respiratory effort, normal air movement and clear to auscultation bilaterally Cardio regular rate, regular rhythm, S1 normal heart sound, S2 normal heart sound and no murmurs GI normal to inspection, nondistended, normoactive bowel sounds Extremity no clubbing, cyanosis or edema Skin Rashes: no rashes Neuro CN's II-XII intact bilaterally Psych Attitude: agitated Mood & Affect: anxious Lab / Micro Data Result Diagrams: 01/07/21 18:25 01/07/21 18:25 Labs: Laboratory Results - last 24 hr 01/07/21 01/07/21 01/07/21 18:25 18:25 18:55 WBC 6.9 RBC 4.46 Hgb 9.2 L Hct 31.1 L MCV 69.7 L MCH 20.6 L MCHC 29.6 L RDW Std Deviation 50.1 H RDW Coeff of Oscar 20.0 H Plt Count 280 MPV 9.6 Immature Gran % (Auto) 0.400 Neut % (Auto) 56.5 Lymph % (Auto) 34.3 [place] % (Auto) 6.3 Eos % (Auto) 2.2 Baso % (Auto) 0.3 Absolute Neuts (auto) 3.9 Absolute Lymphs (auto) 2.35 Nucleated RBC % 0 Sodium 139 Potassium 3.4 L Chloride 108 H Carbon Dioxide 25.0 Anion Gap 6 BUN 8 Creatinine 0.95 Estim Creat Clear Calc 74.38 Est GFR (MDRD) Af Amer 86 Est GFR (MDRD) Non-Af 71 BUN/Creatinine Ratio 8.4 L Glucose 127 H Calcium 8.7 Ur Drug Screen Comment Assessment & Plan Assessment/Plan (1) Opiate abuse, continuous: PLAN: Plan 1. Admit patient to general medical floor, initiate opiate withdrawal protocol, consult skilled nursing case manager for outpatient follow-up for opiate abuse. 2. DVT prophylaxis patient is ambulatory will not need prophylaxis Visit Charges Inpatient E&M: 56371 Init Hosp L2
[2021-01-07 19:25] LABS: Amphetamine Urine VISTA NEGATIVE (<1000 ng/mL); Barbiturate Urine VISTA NEGATIVE (< 200 ng/mL); Benzodiazepine Urine VISTA POSITIVE (< 200 ng/mL); Cocaine Urine VISTA NEGATIVE (< 300 ng/mL); Ecstacy Urine VISTA POSITIVE (< 500 ng/mL); Methadone Urine VISTA NEGATIVE (< 300 ng/mL); PCP Urine VISTA NEGATIVE (< 25 ng/mL); THC Urine VISTA NEGATIVE (< 50 ng/mL); Vista UDS pH Range 5
[2021-01-07 19:28] LABS: Internal QC Validated? YES +Cl - CLEAR BKGD; Pregnancy, Serum, hCG Quali. NEGATIVE Negative
--- NOTE | 2021-01-07 19:30 | CM.ED ---
SOCIAL WORK Referral Source: Self-Referral Reason for Consult: Substance Abuse Met with patient in room. Introduced role and reason for referral. Patient states here for detox from heroin and last use was this afternoon. Patient states has been using off and on for about 1 year after having been clean for 3 years. Education provided on RAMP. Patient voices no questions or concerns. [facility] Navigator has been notified of admission. Assessment to be completed tomorrow. Plan: Admit to [facility]. Nicolle, CLINICAL DOCUMENTATION SPEC, SEASONER HAND
--- NOTE | 2021-01-07 19:32 | ED.RN ---
CALLED [facility] NAVIGATOR (WINTER), TO ADVISE OF ADMISSION
[2021-01-07 19:39] LABS: Alcohol, Blood (Medical)-Serum < 3.0 mg/dL
[2021-01-07 19:49] VITALS: BP 124/83; PULSE 97; PULSE 98; RESP 16; TEMP 36.1; O2SAT 99
[2021-01-07 20:55] VITALS: BP 129/73; PULSE 92; RESP 16; TEMP 36.6; O2SAT 99
[2021-01-07 20:59] VITALS: BMI 40.0
[2021-01-08 01:38] VITALS: BP 113/67; PULSE 80; RESP 16; TEMP 36.9; O2SAT 97
[2021-01-08 06:15] VITALS: BP 107/50; PULSE 70; RESP 18; TEMP 36.6; O2SAT 95
[2021-01-08 07:10] LABS: Absolute Lymphocyte Count 3.04 X10^3/uL (0.83-4.51); Absolute Neutrophil Count 2.1 X10^3/uL (2.0-7.7); Basophil# 0.02 X10^3/uL; Basophil% 0.3 % (0-1); Eosinophil# 0.19 X10^3/uL; Eosinophils% 3.2 % (0-5); Hematocrit 32.4 % (37-47); Hemoglobin 9.1 g/dL (12.0-15.0); Lymphocyte # 3.04 X10^3/ul (0.83-4.51); Lymphocyte % 51.3 % (19-41); Mean Corp Hgb Conc 28.1 g/dL (32-36); Mean Corpuscular Hgb 19.6 pg (27.0-32.0); Mean Corpuscular Volume 69.8 fL (81-99); Mean Platelet Vol. 9.6 fl (6.2-12.0); Monocyte# 0.54 X10^3/uL; Monocyte% 9.1 % (0-10); NRBC Flagged by Analyzer 0 % (0-5); Neutrophil # 2.12 X10^3/uL (2.7-7.7); Neutrophil % 35.8 % (47-70); POSITIVE MORPHOLOGY YES; Platelet Count 250 K/mm3 (150-450); RBC Distribution Width CV 20.3 % (11.6-14.6); RBC Distribution Width SD 50.5 fl (35.1-43.9); Red Blood Count 4.64 M/mm3 (4.2-5.4); White Blood Count 5.9 K/mm3 (4.4-11.0)
[2021-01-08 07:14] LABS: Differential Indicated SCAN CRITERIA MET; Poikilocytosis 1+
[2021-01-08 07:34] LABS: Anion Gap 3 (5-15); BUN 9 mg/dL (7-18); Calcium,Total 8.2 mg/dL (8.5-10.1); Chloride 111 mmol/L (98-107); Creatinine, Serum 0.69 mg/dL (0.55-1.02); EST Glomerular Filtration Rate 103 mL/min (>60); Est Glom Filt Rate - Afr Amer 124 mL/min (>60); Glucose 92 mg/dL (74-106); Potassium 4.2 mmol/L (3.5-5.1); Sodium Level 142 mmol/L (136-145)
[2021-01-08 08:30] VITALS: BP 127/76; PULSE 69; RESP 18; TEMP 36.5; O2SAT 99
[2021-01-08] MEDS: FLUoxetine 10 MG Capsule PO (08:41)
[2021-01-08] MEDS: hydrOXYzine PAM 25 MG Capsule 50 MG PO ×2 (08:42→17:17)
[2021-01-08] MEDS: Methocarbamol 750 MG Tablet 1500 MG PO ×2 (08:42→17:16)
[2021-01-08] MEDS: Pantoprazole Sodium 20 MG Tablet PO (08:42)
[2021-01-08] MEDS: Dicyclomine 10 MG Capsule 20 MG PO ×2 (08:42→17:16)
[2021-01-08] MEDS: Ondansetron 8 MG Tablet PO (08:42)
[2021-01-08] MEDS: cloNIDine HCl 0.1 MG Tablet PO ×2 (08:42→17:17)
--- NOTE | 2021-01-08 09:32 | PCM.PN.HOSP ---
Subjective Subjective: Abdominal cramps, restless legs, headache. Was holding off on taking buprenorphine because of concern for precipitated withdrawal. She had an issue with that before when she took Suboxone when she was withdrawing previously at home. Objective Data Objective Data Vital Signs: Vital Signs Temp Pulse Resp BP Pulse Ox 36.5 C L 69 18 127/76 H 99 01/08/21 08:30 01/08/21 08:30 01/08/21 08:30 01/08/21 08:30 01/08/21 08:30 Oxygen Delivery Method Room Air Weight: 109.2 kg Body Mass Index (BMI) 40.0 Intake & Output: Intake and Output for Last 24 Hours 01/06/21 01/07/21 01/08/21 23:59 23:59 23:59 Intake Total 300 / 300 200 / 200 Balance 300 / 300 200 / 200 Lab / Micro Data Result Diagrams: 01/08/21 05:40 01/08/21 05:40 Labs: Laboratory Results - last 24 hr 01/07/21 01/07/21 01/07/21 18:25 18:25 18:25 WBC 6.9 RBC 4.46 Hgb 9.2 L Hct 31.1 L MCV 69.7 L MCH 20.6 L MCHC 29.6 L RDW Std Deviation 50.1 H RDW Coeff of Oscar 20.0 H Plt Count 280 MPV 9.6 Immature Gran % (Auto) 0.400 Neut % (Auto) 56.5 Lymph % (Auto) 34.3 [place] % (Auto) 6.3 Eos % (Auto) 2.2 Baso % (Auto) 0.3 Absolute Neuts (auto) 3.9 Absolute Lymphs (auto) 2.35 Nucleated RBC % 0 Poikilocytosis Sodium 139 Potassium 3.4 L Chloride 108 H Carbon Dioxide 25.0 Anion Gap 6 BUN 8 Creatinine 0.95 Estim Creat Clear Calc 74.38 Est GFR (MDRD) Af Amer 86 Est GFR (MDRD) Non-Af 71 BUN/Creatinine Ratio 8.4 L Glucose 127 H Calcium 8.7 Serum , Qual Urine Opiates Screen Urine Methadone Screen Ur Barbiturates Screen Ur Phencyclidine Scrn Ur Amphetamines Screen U Methamphetamin-MDMA U Benzodiazepines Scrn Urine Cocaine Screen U Cannabinoids Screen Ur Drug Screen Comment Ethyl Alcohol < 3.0 01/07/21 01/07/21 01/08/21 18:25 18:55 05:40 WBC 5.9 RBC 4.64 Hgb 9.1 L Hct 32.4 L MCV 69.8 L MCH 19.6 L MCHC 28.1 L D RDW Std Deviation 50.5 H RDW Coeff of Oscar 20.3 H Plt Count 250 MPV 9.6 Immature Gran % (Auto) 0.300 Neut % (Auto) 35.8 L Lymph % (Auto) 51.3 H [place] % (Auto) 9.1 Eos % (Auto) 3.2 Baso % (Auto) 0.3 Absolute Neuts (auto) 2.1 Absolute Lymphs (auto) 3.04 Nucleated RBC % 0 Poikilocytosis 1+ Sodium Potassium Chloride Carbon Dioxide Anion Gap BUN Creatinine Estim Creat Clear Calc Est GFR (MDRD) Af Amer Est GFR (MDRD) Non-Af BUN/Creatinine Ratio Glucose Calcium Serum , Qual NEGATIVE Urine Opiates Screen POSITIVE H Urine Methadone Screen NEGATIVE Ur Barbiturates Screen NEGATIVE Ur Phencyclidine Scrn NEGATIVE Ur Amphetamines Screen NEGATIVE U Methamphetamin-MDMA POSITIVE H U Benzodiazepines Scrn POSITIVE H Urine Cocaine Screen NEGATIVE U Cannabinoids Screen NEGATIVE Ur Drug Screen Comment Ethyl Alcohol 01/08/21 05:40 WBC RBC Hgb Hct MCV MCH MCHC RDW Std Deviation RDW Coeff of Oscar Plt Count MPV Immature Gran % (Auto) Neut % (Auto) Lymph % (Auto) [place] % (Auto) Eos % (Auto) Baso % (Auto) Absolute Neuts (auto) Absolute Lymphs (auto) Nucleated RBC % Poikilocytosis Sodium 142 Potassium 4.2 Chloride 111 H Carbon Dioxide 28.0 Anion Gap 3 L BUN 9 Creatinine 0.69 Estim Creat Clear Calc 102.40 Est GFR (MDRD) Af Amer 124 Est GFR (MDRD) Non-Af 103 BUN/Creatinine Ratio 13.0 Glucose 92 Calcium 8.2 L Serum , Qual Urine Opiates Screen Urine Methadone Screen Ur Barbiturates Screen Ur Phencyclidine Scrn Ur Amphetamines Screen U Methamphetamin-MDMA U Benzodiazepines Scrn Urine Cocaine Screen U Cannabinoids Screen Ur Drug Screen Comment Ethyl Alcohol Physical Exam Narrative uncomfortable. afebrile. Const alert and oriented x3 Assessment & Plan Assessment/Plan (1) Opiate abuse, continuous: PLAN: Plan 1. Admit patient to general medical floor, initiate opiate withdrawal protocol, consult medical case manager for outpatient follow-up for opiate abuse. 2. DVT prophylaxis patient is ambulatory will not need prophylaxis 01/08: Had a long conversation with the patient about her precipitated withdrawal when she took Suboxone in the past. Likely was precipitated due to the naloxone component of the Suboxone. Explained that the buprenorphine will help mitigate her withdrawal symptoms though not completely ameliorated at this time. Strongly encouraged, since she is here, to take it if she does have an adverse response to them that we could address that accordingly. Patient was in agreement and will proceed with taking buprenorphine. Patient states that she plans on following up with [facility] upon discharge. Patient states that she takes the gabapentin due to nerve damage that she is staying from necrotizing fasciitis. We will continue. Greater than 25 minutes of which greater than 50% of time was counseling patient about buprenorphine, opiate withdrawal and precipitated withdrawal.
--- NOTE | 2021-01-08 10:50 | ADDICTION ---
This creative services writer attempted to meet with PT. PT declined meeting today but was agreeable to meet at another time. This creative services writer will attempt to f/u with PT at next visit.
[2021-01-08] MEDS: Buprenorphine HCl 2 MG TAB.SUBL SL ×2 (11:21→17:16)
[2021-01-08] MEDS: Gabapentin 600 MG Tablet PO ×2 (11:32→17:16)
[2021-01-08] MEDS: Loperamide 2 MG Capsule PO (11:32)
--- NOTE | 2021-01-08 13:45 | NURSING ---
PT VERY RESTLESS, AGITATED. KICKING LEGS IN THE BED, FLAILING IN BED. STATING I CAN'T [id number] TAKE THIS. NO PRNS DUE @ THIS TIME. STATES IS THIS HOW THEY EXPECT ME TO DETOX?. DR HENDERSON NOTIFIED OF SAME & NEW ORDER RECEIVED.
[2021-01-08] MEDS: LORazepam 1 MG Tablet PO (13:52)
[2021-01-08 15:00] VITALS: BP 100/50; PULSE 72; RESP 18; TEMP 36.9; O2SAT 97
--- NOTE | 2021-01-08 15:27 | NURSING ---
PT RESTING QUIETLY IN BED, EYES CLOSED, RESP EASY
--- NOTE | 2021-01-08 19:35 | NURSING ---
PT RESTING QUIETLY IN BED WITH EYES CLOSED, RESP EASY
[2021-01-08 20:31] VITALS: BP 131/76; PULSE 72; RESP 16; TEMP 37.1; O2SAT 99
[2021-01-08] MEDS: traZODone 100 MG Tablet PO (20:36)
[2021-01-09 01:49] VITALS: BP 119/75; PULSE 65; RESP 16; TEMP 36.8; O2SAT 95
[2021-01-09] MEDS: Methocarbamol 750 MG Tablet 1500 MG PO ×2 (01:52→12:07)
[2021-01-09] MEDS: Buprenorphine HCl 2 MG TAB.SUBL SL ×3 (01:53→17:32)
[2021-01-09] MEDS: hydrOXYzine PAM 25 MG Capsule 50 MG PO ×2 (01:53→19:52)
[2021-01-09] MEDS: cloNIDine HCl 0.1 MG Tablet PO ×2 (01:53→19:52)
[2021-01-09] MEDS: Dicyclomine 10 MG Capsule 20 MG PO ×3 (01:53→19:52)
--- NOTE | 2021-01-09 09:11 | ADDICTION ---
This keno writer / runner attempted to meet with PT to conduct assessments. Patient did not rouse to 3 attempts at verbal queuing. This keno writer / runner will attempt to meet with PT at a later time.
[2021-01-09 09:22] VITALS: BP 131/84; PULSE 60; RESP 18; TEMP 36.9; O2SAT 99
[2021-01-09] MEDS: FLUoxetine 10 MG Capsule PO (09:23)
[2021-01-09] MEDS: Pantoprazole Sodium 20 MG Tablet PO (09:23)
[2021-01-09] MEDS: Gabapentin 600 MG Tablet PO ×3 (09:23→17:32)
--- NOTE | 2021-01-09 14:51 | PCM.PN.HOSP ---
Subjective Subjective overall feeling well. Objective Data Objective Data Vital Signs: Vital Signs Temp Pulse Resp BP Pulse Ox 36.9 C 60 18 131/84 H 99 01/09/21 09:22 01/09/21 09:22 01/09/21 09:22 01/09/21 09:22 01/09/21 09:22 Oxygen Delivery Method Room Air Weight: 109.2 kg Body Mass Index (BMI) 40.0 Intake & Output: Intake and Output for Last 24 Hours 01/07/21 01/08/21 01/09/21 23:59 23:59 23:59 Intake Total 300 / 300 800 / 800 Balance 300 / 300 800 / 800 Lab / Micro Data Result Diagrams: 01/08/21 05:40 01/08/21 05:40 Physical Exam Const alert Eyes PERRL Cardio regular rate, regular rhythm, S1 normal heart sound and S2 normal heart sound GI normal to inspection, nondistended, normoactive bowel sounds, non-tender and non-distended Assessment & Plan Assessment/Plan (1) Opiate abuse, continuous: PLAN: Plan 1. Admit patient to general medical floor, initiate opiate withdrawal protocol, consult supportive employment case manager for outpatient follow-up for opiate abuse. 2. DVT prophylaxis patient is ambulatory will not need prophylaxis 01/08: Had a long conversation with the patient about her precipitated withdrawal when she took Suboxone in the past. Likely was precipitated due to the naloxone component of the Suboxone. Explained that the buprenorphine will help mitigate her withdrawal symptoms though not completely ameliorated at this time. Strongly encouraged, since she is here, to take it if she does have an adverse response to them that we could address that accordingly. Patient was in agreement and will proceed with taking buprenorphine. Patient states that she plans on following up with 180 upon discharge. Patient states that she takes the gabapentin due to nerve damage that she is staying from necrotizing fasciitis. We will continue. Greater than 25 minutes of which greater than 50% of time was counseling patient about buprenorphine, opiate withdrawal and precipitated withdrawal. Visit Charges Inpatient E&M: 92346 Subs Hosp L2
[2021-01-09 15:07] VITALS: BP 133/74; PULSE 64; RESP 18; TEMP 36.9; O2SAT 99
[2021-01-09 19:50] VITALS: BP 114/51; PULSE 54; RESP 18; TEMP 37.3; O2SAT 100
[2021-01-09] MEDS: traZODone 100 MG Tablet PO (23:41)
[2021-01-10 02:16] VITALS: BP 141/55; PULSE 60; RESP 17; TEMP 36.5; O2SAT 95
[2021-01-10] MEDS: Buprenorphine HCl 2 MG TAB.SUBL SL ×3 (02:22→21:10)
[2021-01-10] MEDS: Methocarbamol 750 MG Tablet 1500 MG PO ×2 (02:23→09:00)
[2021-01-10] MEDS: Dicyclomine 10 MG Capsule 20 MG PO ×2 (02:23→21:12)
[2021-01-10] MEDS: hydrOXYzine PAM 25 MG Capsule 50 MG PO ×3 (02:23→19:56)
[2021-01-10] MEDS: Pantoprazole Sodium 20 MG Tablet PO (08:58)
[2021-01-10] MEDS: Gabapentin 600 MG Tablet PO ×3 (08:58→17:35)
[2021-01-10] MEDS: FLUoxetine 10 MG Capsule PO (08:58)
[2021-01-10 09:04] VITALS: BP 116/68; PULSE 59; RESP 16; TEMP 37.3; O2SAT 99
--- NOTE | 2021-01-10 09:58 | ADDICTION ---
This automobile service writer met with PT to conduct ASAM, MSE, DUDIT assessments and to plan for d/c. PT A+Ox4 and participated appropriately. PT states that she plans to engage in IOP with [facility] upon d/c from [facility]. PT was provided walk-in assessment hours and [facility] contact information to utilize upon d/c. PT amiable. All assessments completed, faxed to [facility] and placed in PT's chart. No transportation needs identified.
[2021-01-10 12:17] VITALS: BP 130/71; PULSE 59; RESP 16; TEMP 37.6; O2SAT 99
--- NOTE | 2021-01-10 13:39 | PN.HOSP_ITS ---
Subjective Subjective Feeling better, but still sick overall. Objective Data Objective Data Vital Signs: Vital Signs Temp Pulse Resp BP Pulse Ox 37.6 C H 59 L 16 130/71 H 99 01/10/21 12:17 01/10/21 12:17 01/10/21 12:17 01/10/21 12:17 01/10/21 12:17 Oxygen Delivery Method Room Air Weight: 109.2 kg Body Mass Index (BMI) 40.0 Intake & Output: Intake and Output for Last 24 Hours 01/08/21 01/09/21 01/10/21 23:59 23:59 23:59 Intake Total 800 / 800 Balance 800 / 800 Lab / Micro Data Result Diagrams: 01/08/21 05:40 01/08/21 05:40 Physical Exam Const alert Exam Limitations: no limitations Eyes PERRL Resp normal respiratory effort and clear to auscultation bilaterally Cardio regular rate, regular rhythm, S1 normal heart sound and S2 normal heart sound GI normal to inspection, nondistended, normoactive bowel sounds Assessment & Plan Assessment/Plan (1) Opiate abuse, continuous: PLAN: Plan 1. Admit patient to general medical floor, initiate opiate withdrawal protocol, consult welfare case worker for outpatient follow-up for opiate abuse. 2. DVT prophylaxis patient is ambulatory will not need prophylaxis 01/08: Had a long conversation with the patient about her precipitated withdrawal when she took Suboxone in the past. Likely was precipitated due to the naloxone component of the Suboxone. Explained that the buprenorphine will help mitigate her withdrawal symptoms though not completely ameliorated at this time. Strongly encouraged, since she is here, to take it if she does have an adverse response to them that we could address that accordingly. Patient was in agreement and will proceed with taking buprenorphine. Patient states that she plans on following up with [facility] upon discharge. Patient states that she takes the gabapentin due to nerve damage that she is staying from necrotizing fasciitis. We will continue. Anticipate DC 01/11.
[2021-01-10 14:30] VITALS: BP 120/76; PULSE 64; RESP 16; TEMP 36.6; O2SAT 96
[2021-01-10 19:52] VITALS: BP 110/74; PULSE 78; RESP 16; TEMP 36.7; O2SAT 100
[2021-01-10] MEDS: traZODone 100 MG Tablet PO (21:12)
[2021-01-11 02:35] VITALS: BP 99/61; PULSE 67; RESP 16; TEMP 37.1; O2SAT 95
[2021-01-11] MEDS: Methocarbamol 750 MG Tablet 1500 MG PO (02:41)
[2021-01-11] MEDS: hydrOXYzine PAM 25 MG Capsule 50 MG PO (07:35)
[2021-01-11] MEDS: Gabapentin 600 MG Tablet PO (07:35)
[2021-01-11] MEDS: Pantoprazole Sodium 20 MG Tablet PO (07:36)
[2021-01-11] MEDS: FLUoxetine 10 MG Capsule PO (07:36)
[2021-01-11 07:51] VITALS: PULSE 54; RESP 16; TEMP 36.6
--- NOTE | 2021-01-11 08:41 | PCM.DC ---
Discharge Instructions Diet Discharge Diet: No restrictions Activity Discharge Activity: Return to Normal Activity Follow Up Care Please Follow Up With: Adalid When: Today. Test Results: Test results from this visit will be discussed in further detail at your follow-up appointment, if applicable. Discharge Plan Admission Admit Date/Time: 01/07/21 19:31 Attending Provider: Cristobal Anton Primary Care Provider: Sancho Teresa NP Discharge Orders/Prescriptions Prescriptions: Continued gabapentin 600 MG tablet 600 mg PO TIDCM RF: 0 fluoxetine 10 MG capsule 40 mg PO DAILY RF: 0 pantoprazole 20 MG tablet 20 mg PO DAILY RF: 0 Referrals / Follow Up: Sancho Teresa NP, SUPER[employer] [Primary Care Provider] - Disposition Disposition (needs filled in before D/C Order can be placed): Home, self care
--- NOTE | 2021-01-11 08:42 | PCM.DC.SUM ---
Providers Date of Admission: 01/07/21 Primary Care Physician: DULCE Klein Reason For Visit: OPIATE ABUSE Diagnosis Discharge Diagnosis (1) Opiate abuse, continuous: Status: Acute Code(s): F11.10 - Opioid abuse, uncomplicated Medications at Discharge Home Medications gabapentin 600 mg PO TIDCM 06/22/20 fluoxetine 40 mg PO DAILY 07/05/20 pantoprazole 20 mg PO DAILY 10/10/20 Hospital Course Operations None Procedures None Summary of Care Provided Minutes Spent on Discharge: 26 Hospital Course: This is a 35-year-old presents wit. After conversation, patient did agree andh seeking treatment for acute opiate withdrawal. Patient was initially reluctant to take buprenorphine white female but is overall has improved. Patient was very agitated at 1 point since calm down. Patient met with addiction medicine and plan is for the patient to follow-up with the intensive outpatient program at [facility]. Physical Exam Const alert and oriented x3 Neuro Sensorium / Orientation: awake and alert ABG / Lab / Microbiology Data Result Diagrams: 01/08/21 05:40 01/08/21 05:40 D/C Instructions Discharge Diet: No restrictions Discharge Activity: Return to Normal Activity Please Follow Up With: Adalid When: Today. Meaningful Use Info Meaningful Use Diagnoses (Choose all that apply): None applicable Discharge Plan Admission Admit Date/Time: 01/07/21 19:31 Attending Provider: Cristobal Anton Primary Care Provider: Sancho Teresa NP Discharge Orders/Prescriptions Prescriptions: Continued gabapentin 600 MG tablet 600 mg PO TIDCM RF: 0 fluoxetine 10 MG capsule 40 mg PO DAILY RF: 0 pantoprazole 20 MG tablet 20 mg PO DAILY RF: 0 Referrals / Follow Up: Sancho Teresa NP, FINAL C[employer]AR [employer]OX EXAMINER-[employer] [Primary Care Provider] - Disposition Disposition (needs filled in before D/C Order can be placed): Home, self care
== END 2021-01-11 09:19 | disposition home or self-care (01) | DRG 773 ==
LOC: ED 18:42 → MS3 01-08 02:25
PROVIDERS: Admitting Provider Family Medicine; Emergency Provider Emergency Medicine; PCP Nurse Practitioner Family
DX: F11.23 Opioid dependence with withdrawal (principal); G62.9 Polyneuropathy, unspecified; M79.605 Pain in left leg; G89.29 Other chronic pain; F41.9 Anxiety disorder, unspecified; F17.200 Nicotine dependence, unspecified, uncomplicated
CPT/HCPCS: 36415; 80048; 80307; 82077; 84703; 85025; 99283

== ENCOUNTER 2021-04-18 21:47 | Emergency (ER) | payer MEDICAID, SELFPAY ==
[2021-04-18 21:47] VITALS: BP 125/76; PULSE 99; RESP 16; TEMP 36.7; O2SAT 100; BMI 39.1
--- NOTE | 2021-04-18 21:58 | RAD_ITS ---
STUDY: X-RAY - RIGHT FOOT CLINICAL: Female, 35 years old. Fall, the patient TECHNIQUE: 3 radiographic view(s) of the right foot. COMPARISON: None. FINDINGS: Normal talus, calcaneus, and tarsal bones. Normal visualized subtalar, talonavicular, calcaneocuboid, tarsal and tarsometatarsal articulations. Old fourth metatarsal fracture deformity. Otherwise normal metatarsi. Hallux valgus with distal first metatarsal geode. Normal tibial and fibular sesamoid bones. Normal interphalangeal joint of the great toe. Normal phalanges of the great toe. Normal second through fifth metatarsophalangeal joints. Normal interphalangeal joints and phalanges of the lesser toes. The soft tissue structures are unremarkable. RAD/Foot min 3 Views IMPRESSION: No acute abnormal finding in the right foot. Hallux valgus. Electronically Signed: Abraham Pearson MD at 22:14 EDT Tel , Service support ,
--- NOTE | 2021-04-18 22:59 | EDS_ITS ---
HPI History of Present Illness Chief Complaint: Lower Extremity Injury Informant: patient Onset/Context/Timing Onset: Today Current Severity: Moderate Maximum Severity: Moderate Narrative Narrative: Patient present secondary to right foot and ankle pain. Patient states she was walking when she rolled her right foot. She did not fall to the ground. She denies pain at the knee or hip. She has not yet taken anything for pain. [facility] Medical History Anxiety Chronic pain COPD (chronic obstructive pulmonary disease) Depression GERD (gastroesophageal reflux disease) Hepatitis Migraines Neuropathy Sleep apnea Smoker Substance abuse Home Medications gabapentin 600 mg PO TIDCM 06/22/20 [History Last Taken 01/07/21 13:00] fluoxetine 40 mg PO DAILY 07/05/20 [History Last Taken Unknown] pantoprazole 20 mg PO DAILY 10/10/20 [History Last Taken Unknown] Allergy/AdvReac Type Severity Reaction Status Date / Time levofloxacin [From Levaquin] Allergy Rash Verified 01/07/21 17:46 Penicillins Allergy Nausea Verified 01/07/21 17:46 Social History Smoking Status: Current every day smoker tobacco type: cigarettes ROS ROS ED Constitutional Constitutional ED: Denies chills or fever(s) Eyes Eyes: Denies change in vision ENT ENT ED: Denies rhinorrhea or sore throat Cardiovascular Cardiovascular: Denies chest pain or palpitations Respiratory/Chest Respiratory/Chest: Denies cough or dyspnea Gastrointestinal Gastrointestinal: Denies abdominal pain, diarrhea or vomiting Musculoskeletal Musculoskeletal: Reports arthralgias; Denies back pain or neck pain Integumentary Denies Abrasions or rash Neurologic Neurologic: Denies paresthesias Psychiatric Psychiatric: Denies anxiety or depression Allergic/Immunologic Allergic/Immunologic ED: Denies urticaria EXAM Physical Exam Const Vital Signs: 04/18/21 21:47 Temperature 98.0 F Temperature Source Temporal Pulse Rate 99 Respiratory Rate 16 Blood Pressure 125/76 H Blood Pressure Mean 92 Pulse Ox 100 Oxygen Delivery Method Room Air Positive well nourished and well developed General Appearance ED: well developed HEENT Reports normocephalic and head/scalp atraumatic Eyes PERRL and EOMs intact bilaterally Neck supple Resp normal respiratory effort Cardio regular rate and regular rhythm GI normal to inspection, nondistended, normoactive bowel sounds Palpation: soft Extremity Extremity Narrative: Tenderness to palpation and edema around the lateral malleolus of the right ankle. Mild diffuse tenderness throughout the foot. Strong distal pulses and can wiggle toes. No tenderness at the knee or hip. Neuro oriented x3 Sensorium / Orientation: alert Psych mental status grossly normal Skin no rashes or lesions noted MDM MDM MDM Narrative Medical decision making narrative: Right foot x-rays ordered per nursing protocol. After evaluate the patient right ankle is also added. Patient is giv en Naprosyn and tramadol for pain. Radiography Diagnostic Testing: Radiology Impression Foot X-Ray 04/18/21 21:58 IMPRESSION: No acute abnormal finding in the right foot. Hallux valgus. Electronically Signed: Abraham Pearson MD at 22:14 EDT Tel , Service support , Treatment and Re-Evaluation Comments:: Right foot ankle x-rays per my interpretation reveal soft tissue swelling with no acute bony fracture. Radiology interpretation reviewed. Patient be given an air stirrup splint. She has crutches at home that she can use. Discharge Plan Triage Chief Complaint: Lower Extremity Injury ED Provider: Ashley Lo Dx/Rx/DC Orders Clinical Impression: Right foot sprain, Sprain of ankle, right Instructions: ED Foot Sprain, ED Ankle Sprain (Adult) Prescriptions: No Action gabapentin 600 MG tablet 600 mg PO TIDCM RF: 0 fluoxetine 10 MG capsule 40 mg PO DAILY RF: 0 pantoprazole 20 MG tablet 20 mg PO DAILY RF: 0 Primary Care Provider: Sancho Teresa NP Referrals: Sancho Teresa NP, STATIC BALANCER-C [Primary Care Provider] - 1 Week if not improving Disposition Disposition: Home, Self Care
--- NOTE | 2021-04-18 23:05 | RAD_ITS ---
STUDY: X-RAY - RIGHT ANKLE REASON FOR EXAM: Female, 35 years old. Injury, right ankle pain TECHNIQUE: 3 radiographic view(s) of the ankle. COMPARISON: None. FINDINGS: Normal visualized distal tibia and fibula. Normal medial and lateral malleoli. Normal tibiotalar articulation and ankle mortise. Incidental noted os trigonum. Normal visualized talus and calcaneus. The visualized subtalar, talonavicular, calcaneocuboid and tarsal articulations are normal. There is no demonstrated fracture. Medial ankle soft tissue swelling RAD/Ankle min 3 Views IMPRESSION: Medial ankle soft tissue swelling is concerning for underlying ligamentous injury. No finding of fracture. Electronically Signed: Abraham Pearson MD at 23:37 EDT Tel , Service support ,
[2021-04-18] MEDS: traMADol 50 MG Tablet PO (23:09)
[2021-04-18] MEDS: Naproxen 500 MG Tablet PO (23:09)
== END 2021-04-19 00:05 | disposition home or self-care (01) ==
PROVIDERS: Emergency Provider Emergency Medicine; PCP Nurse Practitioner Family
DX: S93.401A Sprain of unspecified ligament of right ankle, initial encounter (principal); S93.601A Unspecified sprain of right foot, initial encounter; X50.1XXA Overexertion from prolonged static or awkward postures, initial encounter; Y93.01 Activity, walking, marching and hiking; Y92.9 Unspecified place or not applicable; Y99.9 Unspecified external cause status; J44.9 Chronic obstructive pulmonary disease, unspecified; G62.9 Polyneuropathy, unspecified; G89.29 Other chronic pain; G47.30 Sleep apnea, unspecified; K21.9 Gastro-esophageal reflux disease without esophagitis; F32.9 Major depressive disorder, single episode, unspecified; F41.9 Anxiety disorder, unspecified; F17.210 Nicotine dependence, cigarettes, uncomplicated; Z79.899 Other long term (current) drug therapy
CPT/HCPCS: 73610; 73630; 99284

== ENCOUNTER 2021-06-22 22:09 | Emergency (ER) | payer MEDICAID, SELFPAY ==
[2021-06-22 22:10] VITALS: BP 140/86; PULSE 90; RESP 16; TEMP 37.4; O2SAT 100; BMI 40.7
[2021-06-22 22:20] VITALS: BP 140/86; PULSE 84; RESP 17; TEMP 37.2; O2SAT 99
--- NOTE | 2021-06-22 22:29 | EDS_ITS ---
HPI HPI - GI History of Present Illness Chief Complaint: Abd Pain Informant: patient Narrative Narrative: Patient reports upper abdominal pain for the past 2 weeks symptoms worsening over the past 3 days. Reported had a fever 3 days ago. Denies vomiting or diarrhea. Reports history of hepatitis B and C from history of IV drug use. Currently on methadone sees a clinic daily. No abdominal surgery history. Reports was seen at [facility] 3 days ago, however there were unable to access a line on her after 90 minutes she became frustrated and left. She states she has been using ibuprofen for fevers. Reports mild productive cough for 3 weeks. She had a Covid test at urgent care a week ago that was negative. Tobacco history. Denies urinary symptoms. Last menstrual period 2 months ago. States she feels she is perimenopausal. Patient states she is able to eat and drink without worsening pain. Denies alcohol history. [facility] Medical History Anxiety Chronic pain COPD (chronic obstructive pulmonary disease) Depression GERD (gastroesophageal reflux disease) Hepatitis Migraines Neuropathy Sleep apnea Smoker Substance abuse Home Medications gabapentin 600 mg PO TIDCM 06/22/20 [History Last Taken 01/07/21 13:00] fluoxetine 40 mg PO DAILY 07/05/20 [History Last Taken Unknown] methadone [Methadone Intensol] 145 mg PO DAILY 06/22/21 [History Last Taken Unknown] [id number] K [Multi For Her] 1 tab-cap PO DAILY 06/22/21 [History Last Taken Unknown] cefdinir 300 mg PO BID #13 cap 06/23/21 [Rx Last Taken Unknown] peg 3350-electrolytes [Golytely] 240 ml PO Q10M PRN #4000 ml 06/23/21 [Rx Last Taken Unknown] Allergy/AdvReac Type Severity Reaction Status Date / Time levofloxacin [From Levaquin] Allergy Rash Verified 06/22/21 22:10 Penicillins Allergy Nausea Verified 06/22/21 22:10 Social History Smoking Status: Current every day smoker tobacco type: cigarettes ROS ROS ED Constitutional Constitutional ED: Denies chills, fever(s) or sweats Eyes Eyes: Denies change in vision ENT ENT ED: Denies dysphagia or sore throat Cardiovascular Cardiovascular: Denies chest pain, leg edema, palpitations or racing heartbeat Respiratory/Chest Respiratory/Chest: Denies cough, dyspnea or dyspnea on exertion Gastrointestinal Gastrointestinal: Reports abdominal pain; Denies diarrhea, nausea or vomiting Genitourinary Genitourinary ED: Denies dysuria, hematuria or urinary frequency Musculoskeletal Musculoskeletal: Denies back pain, extremity pain or neck pain Integumentary Denies rash or wounds Neurologic Neurologic: Denies headache(s), paresthesias or weakness EXAM Physical Exam Const Vital Signs: 06/22/21 22:10 06/22/21 22:20 06/23/21 00:14 Temperature 99.3 F H 99 F 99.3 F H Temperature Source Oral Temporal Oral Pulse Rate 90 84 76 Respiratory Rate 16 17 20 H Blood Pressure 140/86 H 140/86 H 148/73 H Blood Pressure Mean 104 104 98 Pulse Ox 100 99 98 Oxygen Delivery Method Room Air Room Air Room Air Positive well nourished and well developed General Appearance ED: well developed and NAD HEENT Reports moist mucous membranes normocephalic and atraumatic Eyes PERRL, EOMs intact bilaterally and conjunctivae normal General Eye ED: Yes normal appearance of both eyes; Negative for scleral icterus Neck no lymphadenopathy and supple General: Negative for tenderness Chest Wall Chest: Negative for tenderness Resp normal respiratory effort and normal air movement Effort and Inspection: symmetric chest movement; Negative for respiratory distress Cardio regular rate, regular rhythm and no murmurs Peripheral Pulses: pulses 2+ throughout GI normal to inspection, nondistended, normoactive bowel sounds GI Narrative: Mild tenderness epigastric and upper quadrants, no guarding or rebound. Negative Garcia's or McBurney's tenderness. Palpation: Negative for guarding or rebound tenderness present Back/Spine no CVA tenderness and no thoracic nor lumbar tenderness Extremity normal to inspection General Extremety ED: Negative for edema or tenderness General Extremity: Negative for edema Neuro oriented x3 and no sensory deficits noted Sensorium / Orientation: awake and alert Skin no rashes or lesions noted and no wounds General Skin Exam: Negative for jaundice MDM MDM MDM Narrative Medical decision making narrative: Patient with a nonsurgical abdomen. Reporting worsening pain the past 3 days. Symptoms worsening for the past week. No abdominal surgery history. Reports constipation history. Currently with the methadone clinic. Abdominal labs all normal noted slight white count 13.4. hCG negative. Chest x-ray obtained 1 view reviewed by myself and read by radiology negative. Contrast scan obtained of the abdomen pelvis due to her reported worsening symptoms. Results notes constipation of the abdomen pelvis, however none views reported multifocal pneumonia changes. She has been having productive cough with a negative chest x-ray. She reports had a Covid testing a week ago at urgent care, she was tested at [facility] report that was also negative. With 3 weeks of cough to negative test, less likely Covid. Discussed treatment for pneumonia for which she agrees. Omnicef was started for 7 days. Patient no respiratory distress pulse ox 98%. Discussed with her constipation. She has had a colonoscopy in her teenage years and remembers the bowel prep. She would like to use GoLYTELY for bowel movements. This was prescribed. She is reassured with her findings. She will follow-up with her PCP. All questions were answered. Patient is being discharged under pandemic conditions under declared global, national and state disaster activation, with limited medical resources. Patient and community understands this. Results discussed in layman's terms to the patient satisfaction. All questions answered in layman's terms. Patient understands importance of follow-up care as directed. Patient has been instructed to return to the ED immediately if new symptoms, problems, or q uestions occur. We mutually agree with the plan of disposition. The patient understand that they may call or return with any questions or concerns at any time. Lab Data Attestation: I reviewed the patient's lab results. Labs: Laboratory Results - last 24 hr 06/22/21 06/22/21 06/22/21 22:53 22:53 22:53 WBC 13.4 H RBC 4.51 Hgb 9.0 L Hct 30.5 L MCV 67.6 L MCH 20.0 L MCHC 29.5 L RDW Std Deviation 46.8 H RDW Coeff of Oscar 19.7 H Plt Count 333 MPV 9.3 Immature Gran % (Auto) 0.400 Neut % (Auto) 80.6 H Lymph % (Auto) 14.9 L Frontier % (Auto) 3.3 Eos % (Auto) 0.5 Baso % (Auto) 0.3 Absolute Neuts (auto) 10.8 H Absolute Lymphs (auto) 1.99 Nucleated RBC % 0 Sodium 140 Potassium 3.5 Chloride 109 H Carbon Dioxide 23.0 Anion Gap 8 BUN 11 Creatinine 0.99 Estim Creat Clear Calc 71.37 Est GFR (MDRD) Af Amer 82 Est GFR (MDRD) Non-Af 68 BUN/Creatinine Ratio 11.1 Glucose 132 H Calcium 8.6 Total Bilirubin 0.20 Direct Bilirubin 0.11 AST 20 ALT 41 Alkaline Phosphatase 90 Total Protein 7.4 Albumin 2.9 L Globulin 4.5 H Lipase 87 Serum , Qual NEGATIVE Radiography Diagnostic Testing: Clinical Impression(s) from Imaging Studies Chest X-Ray 06/22/21 23:09 IMPRESSION: Nonacute x-ray examination of the chest. Electronically Signed: Eric Olea MD ([place]) at 23:35 EDT , Service support , Abdomen/Pelvis CT 06/23/21 22:27 IMPRESSION: 1. Bilateral multifocal pneumonia versus allergic alveolitis. 2. No CT evidence of acute intra-abdominal disease. 3. Large amount of stool suggesting possible fecal stasis. Electronically Signed: Libra Fowler MD at 1:02 EDT , Service support , Discharge Plan Triage Chief Complaint: Abd Pain ED Provider: Jae Emmanuel Dx/Rx/DC Orders Clinical Impression: Pneumonia, Constipation, Abdominal pain Instructions: Abdominal Pain, ED Constipation (Adult), ED Pneumonia (Adult) Prescriptions: New cefdinir 300 mg capsule 300 mg PO BID Qty: 13 RF: 0 peg 3350-electrolytes [Golytely] 236-22.74-6.74 -5.86 gram recon soln 240 ml PO Q10M PRN Qty: 4000 RF: 0 No Action gabapentin 600 MG tablet 600 mg PO TIDCM RF: 0 fluoxetine 10 MG capsule 40 mg PO DAILY RF: 0 methadone [Methadone Intensol] 10 mg/mL Concentrate 145 mg PO DAILY RF: 0 Multi For Her 18 mg iron-600 mcg-40 mcg Capsule 1 tab-cap PO DAILY RF: 0 Primary Care Provider: Sancho Teresa NP Referrals: Sancho Teresa NP, CLIENT INSIGHTS CONSULTANT-C [Primary Care Provider] - 1 Week Disposition Disposition: Home, Self Care Discharge Date/Time: 06/23/21 01:36
[2021-06-22 22:58] LABS: Absolute Lymphocyte Count 1.99 X10^3/uL (0.83-4.51); Absolute Neutrophil Count 10.8 X10^3/uL (2.0-7.7); Basophil# 0.04 X10^3/uL; Basophil% 0.3 % (0-1); Eosinophil# 0.07 X10^3/uL; Eosinophils% 0.5 % (0-5); Hematocrit 30.5 % (37-47); Lymphocyte # 1.99 X10^3/ul (0.83-4.51); Lymphocyte % 14.9 % (19-41); Mean Corp Hgb Conc 29.5 g/dL (32-36); Mean Corpuscular Volume 67.6 fL (81-99); Mean Platelet Vol. 9.3 fl (6.2-12.0); Monocyte# 0.44 X10^3/uL; Monocyte% 3.3 % (0-10); NRBC Flagged by Analyzer 0 % (0-5); Neutrophil # 10.79 X10^3/uL (2.7-7.7); Neutrophil % 80.6 % (47-70); Platelet Count 333 K/mm3 (150-450); RBC Distribution Width CV 19.7 % (11.6-14.6); RBC Distribution Width SD 46.8 fl (35.1-43.9); Red Blood Count 4.51 M/mm3 (4.2-5.4); White Blood Count 13.4 K/mm3 (4.4-11.0)
[2021-06-22] MEDS: 0.9% Normal Saline 1,000 ML 1000 ML IV (23:02)
[2021-06-22 23:07] LABS: Internal QC Validated? YES +Cl - CLEAR BKGD; Pregnancy, Serum, hCG Quali. NEGATIVE Negative
--- NOTE | 2021-06-22 23:09 | RAD_ITS ---
STUDY: X-RAY CHEST REASON FOR EXAM: Female, 35 years old. RUQ abd pain x3 days, seen at [facility]. pt states she went home and has been sleeping since. also states she has cough but tested negative for covid. Has had upper abdominal pain x1 month TECHNIQUE: AP COMPARISON: None. FINDINGS: The lungs are clear and expanded. There is no demonstrated pleural abnormality. Normal size heart. Normal mediastinum and fredo. Normal visualized pulmonary arteries. Normal visualized aortic arch and descending thoracic aorta. Normal visualized thoracic spine. Normal visualized ribs, clavicles, and shoulders. There is no demonstrated abnormality of the visualized soft tissue structures of the upper abdomen. RAD/Chest 1 View (Portable) IMPRESSION: Nonacute x-ray examination of the chest. Electronically Signed: Eric Olea MD ([place]) at 23:35 EDT , Service support ,
[2021-06-22 23:14] LABS: AST(SGOT) 20 U/L (15-37); Alanine Aminotransfer ALT/SGPT 41 U/L (13-56); Albumin, Serum 2.9 g/dL (3.2-5.0); Alkaline Phosphatase 90 U/L (45-117); Anion Gap 8 (5-15); BUN 11 mg/dL (7-18); BUN/Creat Ratio 11.1 RATIO (10-20); Bilirubin, Direct 0.11 mg/dL (0.00-0.30); Calcium,Total 8.6 mg/dL (8.5-10.1); Chloride 109 mmol/L (98-107); Creatinine, Serum 0.99 mg/dL (0.55-1.02); EST Glomerular Filtration Rate 68 mL/min (>60); Est Glom Filt Rate - Afr Amer 82 mL/min (>60); Estimated Creatinine Clearance 71.37 ml/min; Globulin 4.5 g/dL (2.2-4.2); Glucose 132 mg/dL (74-106); Lipase 87 U/L (73-393); Potassium 3.5 mmol/L (3.5-5.1); Protein, Total 7.4 g/dL (6.4-8.2); Sodium Level 140 mmol/L (136-145)
[2021-06-23 00:14] VITALS: BP 148/73; PULSE 76; RESP 20; TEMP 37.4; O2SAT 98
[2021-06-23] MEDS: Cefdinir 300 MG Capsule PO (01:29)
--- NOTE | 2021-06-23 22:27 | CT_ITS ---
STUDY: CT ABDOMEN AND PELVIS WITH CONTRAST REASON FOR EXAM: Female, 35 years old patient with abdominal pain. RADIATION DOSAGE (If Supplied By Facility): CTDIvol = ( 18.65 ) mGy, DLP = ( 1271.65 ) mGycm TECHNIQUE: Transaxial images were obtained from the dome of the diaphragm to the symphysis pubis with oral contrast. 100 mL IV Isovue-370 was administered. Sagittal and coronal images were reconstructed. Individualized dose optimization techniques were used for this CT. COMPARISON: Prior comparison studies are not available for review at this time. FINDINGS: There is heterogeneous glass attenuation in both lung bases suggesting possible sequela of multifocal pneumonia or allergic alveolitis. The visualized portions of the heart are within normal limits. Normal liver. Normal gallbladder and extrahepatic biliary system. Normal spleen. Normal pancreas. Normal bilateral adrenal glands. Normal right kidney. Normal left kidney. Normal visualized stomach. There is no obvious dilated bowel, ascites or pneumoperitoneum. The small bowel has a grossly normal appearance. Stool is visible throughout the colon with scattered diverticula. The appendix is visualized and appears normal. Normal abdominal aorta. There is venous distention of the inferior vena cava (IVC). Normal retroperitoneum. Urinary bladder is nondistended. Normal visualized uterus. There is a small umbilical hernia containing fat. There is spondylolysis of L5. There are multiple Schmorl''s nodes at the endplates of the thoracic vertebral bodies. CT/Abdomen/Pelvis WITH Contrast IMPRESSION: 1. Bilateral multifocal pneumonia versus allergic alveolitis. 2. No CT evidence of acute intra-abdominal disease. 3. Large amount of stool suggesting possible fecal stasis. Electronically Signed: Libra Fowler MD at 1:02 EDT , Service support ,
== END 2021-06-23 01:36 | disposition home or self-care (01) ==
PROVIDERS: Emergency Provider Emergency Medicine; PCP Nurse Practitioner Family
DX: K59.00 Constipation, unspecified (principal); J18.9 Pneumonia, unspecified organism; J44.0 Chronic obstructive pulmonary disease with (acute) lower respiratory infection; F32.A Depression, unspecified; G62.9 Polyneuropathy, unspecified; G89.29 Other chronic pain; G47.30 Sleep apnea, unspecified; K21.9 Gastro-esophageal reflux disease without esophagitis; F41.9 Anxiety disorder, unspecified; F17.210 Nicotine dependence, cigarettes, uncomplicated; Z79.899 Other long term (current) drug therapy
CPT/HCPCS: 71045; 74177; 80048; 80076; 83690; 84703; 85025; 96360; 96361; 99284; J7030; Q9967; A4216

== ENCOUNTER 2021-07-28 22:10 | Emergency (ER) | payer MEDICAID, SELFPAY ==
[2021-07-28 22:11] VITALS: BP 152/3; PULSE 78; RESP 16; TEMP 36.4; O2SAT 97; BMI 35.7
--- NOTE | 2021-07-28 22:29 | EDS_ITS ---
HPI History of Present Illness Chief Complaint: Shortness of Breath Narrative Narrative: Pt reports 3-4 weeks of congestion and cough. She states she has been tested for Covid and has been negative. She states she was getting better then developed left sided facial pain and purulent discharge and therefore returns to the ED for evaluation [facility] Medical History Anxiety Chronic pain COPD (chronic obstructive pulmonary disease) Depression GERD (gastroesophageal reflux disease) Hepatitis Migraines Neuropathy Sleep apnea Smoker Substance abuse Home Medications gabapentin 600 mg PO TIDCM 06/22/20 [History Last Taken 01/07/21 13:00] fluoxetine 40 mg PO DAILY 07/05/20 [History Last Taken Unknown] methadone [Methadone Intensol] 145 mg PO DAILY 06/22/21 [History Last Taken Unknown] hxfitkslanon-[id number]-[id number]-FA-vit K [Multi For Her] 1 tab-cap PO DAILY 06/22/21 [History Last Taken Unknown] cefdinir 300 mg PO BID #13 cap 06/23/21 [Rx Last Taken Unknown] peg 3350-electrolytes [Golytely] 240 ml PO Q10M PRN #4000 ml 06/23/21 [Rx Last Taken Unknown] amoxicillin-pot clavulanate [Augmentin] 1 tab PO BID 10 Days #20 tab 07/28/21 [Rx Last Taken Unknown] prednisone 40 mg PO DAILY 6 Days #12 tab 07/28/21 [Rx Last Taken Unknown] promethazine-codeine 5 ml PO Q6H PRN 7 Days #140 ml 07/28/21 [Rx Last Taken Unk nown] Allergy/AdvReac Type Severity Reaction Status Date / Time levofloxacin [From Levaquin] Allergy Rash Verified 06/22/21 22:10 Penicillins Allergy Nausea Verified 06/22/21 22:10 Social History Smoking Status: Current every day smoker tobacco type: cigarettes ROS ROS ED Constitutional Constitutional ED: Denies chills or fever(s) ENT ENT ED: Reports ear pain, rhinorrhea and sore throat Cardiovascular Cardiovascular: Denies chest pain Respiratory/Chest Respiratory/Chest: Reports cough, dyspnea and sputum Gastrointestinal Gastrointestinal: Denies abdominal pain, diarrhea, nausea or vomiting Genitourinary Genitourinary ED: Denies dysuria Musculoskeletal Musculoskeletal: Reports myalgias Integumentary Denies rash Neurologic Neurologic: Reports headache(s) Hematologic/Lymphatic Hematologic/Lymphatic: Denies easy bleeding or easy bruising EXAM Physical Exam Const Vital Signs: 07/28/21 22:11 Temperature 97.6 F L Temperature Source Temporal Pulse Rate 78 Respiratory Rate 16 Blood Pressure 152/3 H Blood Pressure Mean 52 Pulse Ox 97 Oxygen Delivery Method Room Air Positive well nourished and well developed General Appearance ED: well developed HEENT Reports moist mucous membranes HEENT Narrative: B/L TMs are retracted without signs of infection. Nasal mucosa is hyperemic and boggy with pain with palpation over the left frontal and maxillary sinus. Cobblestoning noted in the posterior pharynx as well Eyes PERRL and EOMs intact bilaterally Neck supple Neck Narrative: + anterior cervical lymphadenopathy noted Resp normal respiratory effort Resp Narrative: BS are diminished with diffuse wheeze consistent with smoking history but no signs of respiratory distress. Cardio regular rate and regular rhythm Extremity normal to inspection Neuro oriented x3 and CN's II-XII intact bilaterally Sensorium / Orientation: alert Motor Exam: strength 5/5 throughout Psych mental status grossly normal Skin no rashes or lesions noted MDM MDM MDM Narrative Medical decision making narrative: Pt arrived with stable vitals and in no acute distress. She has been tested for Covid recently and was negative so I felt no need for repeat testing. Her symptoms are consistent with repeat Viral illness which has now progressed to maxillary sinusitis. As symptoms have been present for multiple weeks I will start the patient on antibiotics. However, as she has no signs of systemic infection she is safe for discharge Discharge Plan Triage Chief Complaint: Shortness of Breath ED Provider: Eulalio Reis Dx/Rx/DC Orders Clinical Impression: Acute maxillary sinusitis, Viral upper respiratory illness Instructions: ED Sinusitis (Antibiotic Treatment), ED URI, Viral W/ Wheezing (Adult) Prescriptions: New amoxicillin-pot clavulanate [Augmentin] 875-125 mg tablet 1 tab PO BID 10 Days Qty: 20 RF: 0 prednisone 20 mg tablet 40 mg PO DAILY 6 Days Qty: 12 RF: 0 promethazine-codeine 6.25-10 mg/5 mL syrup 5 ml PO Q6H PRN (Reason: cough) 7 Days Qty: 140 RF: 0 No Action gabapentin 600 MG tablet 600 mg PO TIDCM RF: 0 fluoxetine 10 MG capsule 40 mg PO DAILY RF: 0 methadone [Methadone Intensol] 10 mg/mL Concentrate 145 mg PO DAILY RF: 0 Multi For Her 18 mg iron-600 mcg-40 mcg Capsule 1 tab-cap PO DAILY RF: 0 cefdinir 300 mg capsule 300 mg PO BID Qty: 13 RF: 0 peg 3350-electrolytes [Golytely] 236-22.74-6.74 -5.86 gram recon soln 240 ml PO Q10M PRN Qty: 4000 RF: 0 Primary Care Provider: Sancho Teresa NP Referrals: Sancho Teresa NP, CLINICAL EDUCATION ASSISTANT-C [Primary Care Provider] - Disposition Disposition: Home, Self Care Discharge Date/Time: 07/28/21 22:46
[2021-07-28] MEDS: predniSONE 20 MG Tablet 40 MG PO (22:40)
[2021-07-28] MEDS: Amox/Clavulanate 875 MG Tablet PO (22:40)
== END 2021-07-28 22:46 | disposition home or self-care (01) ==
PROVIDERS: Emergency Provider Emergency Medicine; PCP Nurse Practitioner Family
DX: J01.00 Acute maxillary sinusitis, unspecified (principal); J06.9 Acute upper respiratory infection, unspecified; F17.210 Nicotine dependence, cigarettes, uncomplicated; G47.30 Sleep apnea, unspecified
CPT/HCPCS: 99283

== ENCOUNTER 2022-02-17 01:20 | Emergency (ER) | payer MEDICAID, SELFPAY ==
[2022-02-17 01:21] VITALS: BP 114/58; PULSE 94; RESP 16; TEMP 36.8; O2SAT 97; BMI 44.2
--- NOTE | 2022-02-17 02:29 | EDS_ITS ---
HPI History of Present Illness Chief Complaint: Abscess Informant: patient Narrative Narrative: Patient is a 36-year-old female with history of opioid dependency as well as necrotizing fasciitis of her left upper extremity presenting with 3 days of redness and pain to her left groin. She states it started out the size of a marble and is getting larger. She denies any drainage. She notes that she does not shave her pubic hair but that area is where her underwear rubs against her skin. She denies any fever or chills. She notes the pain does radiate to her buttocks. No difficulty urinating. Does not have a history of diabetes. No other complaints at this time. She is on daily methadone. She states she is tried ibuprofen and Tylenol with no relief of her symptoms. [facility] Medical History Anxiety Chronic pain COPD (chronic obstructive pulmonary disease) Depression GERD (gastroesophageal reflux disease) Hepatitis Migraines Neuropathy Sleep apnea Smoker Substance abuse Home Medications gabapentin 600 mg tablet 600 mg PO TIDCM nerve pain 06/22/20 [History Last Taken 01/07/21 13:00] fluoxetine 10 mg capsule 40 mg PO DAILY depression 07/05/20 [History Last Taken Unknown] methadone 10 mg/mL oral concentrate (Methadone Intensol) 145 mg PO DAILY 06/22/21 [History Last Taken Unknown] slnvusmjs-uzo-cynz fumarate 18 mg-FA 600 mcg-vit K 40 mcg capsule (Multi For Her) 1 tab-cap PO DAILY 06/22/21 [History Last Taken Unknown] cefdinir 300 mg capsule 300 mg PO BID #13 caps 06/23/21 [Rx Last Taken Unknown] peg 3350-electrolytes 236 gram-22.74 gram-6.74 gram-5.86 gram solution (Golytely) 240 ml PO Q10M PRN constipation #4,000 mL 06/23/21 [Rx Last Taken Unknown] amoxicillin 875 mg-potassium clavulanate 125 mg tablet (Augmentin) 1 tab PO BID 10 days #20 tabs 07/28/21 [Rx Last Taken Unknown] prednisone 20 mg tablet 40 mg PO DAILY 6 days #12 tabs 07/28/21 [Rx Last Taken Unknown] promethazine 6.25 mg-codeine 10 mg/5 mL syrup 5 ml PO Q6H PRN cough 7 days #140 mL 07/28/21 [Rx Last Taken Unknown] cephalexin 500 mg capsule 500 mg PO Q6 7 days #28 caps 02/17/22 [Rx Last Taken Unknown] sulfamethoxazole 800 mg-trimethoprim 160 mg tablet (Bactrim DS) 1 tab PO Q12H 10 days #20 tabs 02/17/22 [Rx Last Taken Unknown] Allergy/AdvReac Type Severity Reaction Status Date / Time levofloxacin [From Levaquin] Allergy Rash Verified 02/17/22 01:23 Penicillins Allergy Nausea Verified 02/17/22 01:23 Social History Smoking Status: Current every day smoker tobacco type: cigarettes ROS ROS ED Constitutional Constitutional ED: Denies chills or fever(s) Eyes Eyes: Denies change in vision ENT ENT ED: Denies sore throat Cardiovascular Cardiovascular: Denies chest pain Respiratory/Chest Respiratory/Chest: Denies cough Gastrointestinal Gastrointestinal: Denies abdominal pain, diarrhea, nausea or vomiting Musculoskeletal Musculoskeletal: Denies arthralgias or myalgias Integumentary Reports abscess and rash Neurologic Neurologic: Denies headache(s) or paresthesias Psychiatric Psychiatric: Reports anxiety; Denies depression EXAM Physical Exam Const Vital Signs: 02/17/22 01:21 Temperature 98.3 F Temperature Source Oral Pulse Rate 94 Respiratory Rate 16 Blood Pressure 114/58 L Blood Pressure Mean 76 Pulse Ox 97 Oxygen Delivery Method Room Air Positive well nourished, well developed and obese General Appearance ED: well developed and NAD Nutritional Appearance: obese HEENT Reports moist mucous membranes Eyes EOMs intact bilaterally Neck supple Neck Narrative: normal ROM Chest Wall inspection of chest normal Resp normal respiratory effort and clear to auscultation bilaterally Cardio regular rate and regular rhythm GI normal to inspection, nondistended, normoactive bowel sounds Extremity normal to inspection Neuro oriented x3 Motor Exam: Negative for general weakness Psych mental status grossly normal Skin Skin Narrative: Patient is approximately 3 cm x 3 cm area of erythema and induration in the left groin. No associated drainage. No significant fluctuance. No associated lymp hangitic streaking. Do not appreciate any associated lymphadenopathy. MDM MDM MDM Narrative Medical decision making narrative: Patient is evaluated for redness and swelling to her left groin. No obvious abscess or fluctuance appreciated. Bedside ultrasound performed by myself shows a possible half centimeter area of more localized fluid collection however I do not think it is amenable to I&D at this time as it is too small. This overriding skin is anesthetized with lidocaine and needle aspiration performed. No fluctuant material is aspirated. Patient tolerated this procedure well. I will defer formal incision and drainage at this time as I do not think there is a significant abscess amenable to I&D at this time. Patient is started on antibiotics. She is given first dose of Keflex and Bactrim in the emergency room. She is counseled on warm compresses. She is counseled on return precautions. She is not having associated crepitus I am not concerned for deeper infection such as [place]'s gangrene. She is very well-appearing otherwise. She discharged home in stable condition. Discharge Plan Triage Chief Complaint: Abscess ED Provider: Bernie Lamar Dx/Rx/DC Orders Clinical Impression: Abscess of groin, left Instructions: ED Abscess Antibiotic Treatment Only Prescriptions: New sulfamethoxazole-trimethoprim [Bactrim DS] 800-160 mg tablet 1 tab PO Q12H 10 Days Qty: 20 0RF cephalexin 500 mg capsule 500 mg PO Q6 7 Days Qty: 28 0RF No Action gabapentin 600 MG tablet 600 mg PO TIDCM fluoxetine 10 MG capsule 40 mg PO DAILY methadone [Methadone Intensol] 10 mg/mL Concentrate 145 mg PO DAILY Multi For Her 18 mg iron-600 mcg-40 mcg Capsule 1 tab-cap PO DAILY cefdinir 300 mg capsule 300 mg PO BID Qty: 13 0RF peg 3350-electrolytes [Golytely] 236-22.74-6.74 -5.86 gram recon soln 240 ml PO Q10M PRN Qty: 4000 0RF Rx Instructions: until fecal effluent is clear amoxicillin-pot clavulanate [Augmentin] 875-125 mg tablet 1 tab PO BID 10 Days Qty: 20 0RF prednisone 20 mg tablet 40 mg PO DAILY 6 Days Qty: 12 0RF promethazine-codeine 6.25-10 mg/5 mL syrup 5 ml PO Q6H PRN (Reason: cough) 7 Days Qty: 140 0RF Primary Care Provider: Sancho Teresa NP Referrals: Sancho Teresa NP, SPARKER AND PATCHER-C [Primary Care Provider] - Activity Restrictions/Additional Instructions: Perform warm compresses multiple times a day to help encourage any drainage that might develop. Return if you have worsening symptoms including worsening redness, pain or is getting larger especially after 48 hours of antibiotics. Disposition Disposition: Home, Self Care Discharge Date/Time: 02/17/22 04:08
[2022-02-17] MEDS: Smz/Tmp Ds Tablet 1 TABLET PO (02:40)
[2022-02-17] MEDS: Cephalexin 250 MG Capsule 500 MG PO (03:59)
[2022-02-17] MEDS: Lidocaine 1% (30 ml sdv) 30 ML Vial INFILT (04:00)
== END 2022-02-17 04:08 | disposition home or self-care (01) ==
PROVIDERS: Emergency Provider Emergency Medicine; PCP Nurse Practitioner Family; Visit Provider Emergency Medicine
DX: L02.214 Cutaneous abscess of groin (principal); J44.9 Chronic obstructive pulmonary disease, unspecified; F11.21 Opioid dependence, in remission; G89.29 Other chronic pain; K21.9 Gastro-esophageal reflux disease without esophagitis; E66.9 Obesity, unspecified; F32.A Depression, unspecified; F41.9 Anxiety disorder, unspecified; Z79.899 Other long term (current) drug therapy; F17.210 Nicotine dependence, cigarettes, uncomplicated
CPT/HCPCS: 99283

== ENCOUNTER 2023-02-25 14:46 | Emergency (ER) | payer MEDICAID, SELFPAY ==
[2023-02-25 14:47] VITALS: BP 135/83; PULSE 102; RESP 22; TEMP 35.9; O2SAT 93
--- NOTE | 2023-02-25 15:08 | EDS_ITS ---
HPI History of Present Illness Chief Complaint: Lower Extremity Injury Detail of Chief Complaint: Right leg pain Informant: patient Onset/Context/Timing Onset: Month(s) (1 month) Context: Gradual Onset Narrative Narrative: Patient states she is chronic pain in her left leg secondary to arthritis in the knee and what she believes is a torn muscle in her thigh. She is been told she needs a left knee replacement. She states because of this her right leg has always been her good leg. Over the past month she has had numbness and tingling in her right foot and has developed tightness and spasm in the right buttock area. She states she is on her feet a lot at work and this seems to worsen her symptoms. She is on gabapentin chronically. She states she has t ried Naprosyn, Tylenol, and ibuprofen without improvement. There was no trauma or direct injury to her back or leg. [facility] Medical History Anxiety Chronic pain COPD (chronic obstructive pulmonary disease) Depression GERD (gastroesophageal reflux disease) Hepatitis Migraines Neuropathy Sleep apnea Smoker Substance abuse Home Medications gabapentin 600 mg tablet 600 mg PO TIDCM nerve pain 06/22/20 [History Last Taken 01/07/21 13:00] fluoxetine 10 mg capsule 40 mg PO DAILY depression 07/05/20 [History Last Taken Unknown] methadone 10 mg/mL oral concentrate (Methadone Intensol) 145 mg PO DAILY 06/22/21 [History Last Taken Unknown] csoomnaea-ykk-nijo fumarate 18 mg-FA 600 mcg-vit K 40 mcg capsule (Multi For Her) 1 tab-cap PO DAILY 06/22/21 [History Last Taken Unknown] cefdinir 300 mg capsule 300 mg PO BID #13 caps 06/23/21 [Rx Last Taken Unknown] peg 3350-electrolytes 236 gram-22.74 gram-6.74 gram-5.86 gram solution (Golytely) 240 ml PO Q10M PRN constipation #4,000 mL 06/23/21 [Rx Last Taken Unknown] amoxicillin 875 mg-potassium clavulanate 125 mg tablet (Augmentin) 1 tab PO BID 10 days #20 tabs 07/28/21 [Rx Last Taken Unknown] prednisone 20 mg tablet 40 mg (2 x 20 mg) PO DAILY 6 days #12 tabs 07/28/21 [Rx Last Taken Unknown] promethazine 6.25 mg-codeine 10 mg/5 mL syrup 5 ml PO Q6H PRN cough 7 days #140 mL 07/28/21 [Rx Last Taken Unknown] cephalexin 500 mg capsule 500 mg PO Q6 7 days #28 caps 02/17/22 [Rx Last Taken Unknown] sulfamethoxazole 800 mg-trimethoprim 160 mg tablet (Bactrim DS) 1 tab PO Q12H 10 days #20 tabs 02/17/22 [Rx Last Taken Unknown] cyclobenzaprine 10 mg tablet 10 mg PO TID PRN Muscle Spasm #20 TABLETS 02/25/23 [Rx Last Taken Unknown] naproxen 500 mg tablet (Naprosyn) 500 mg PO BID PRN pain #20 tabs 02/25/23 [Rx Last Taken Unknown] prednisone 20 mg tablet 40 mg (2 x 20 mg) PO DAILY #8 tabs 02/25/23 [Rx Last Taken Unknown] Allergy/AdvReac Type Severity Reaction Status Date / Time [facility] Allergy Rash Verified 02/17/22 01:23 Penicillins Allergy Nausea Verified 02/17/22 01:23 Social History Smoking Status: Current every day smoker tobacco type: cigarettes ROS ROS ED Constitutional Constitutional ED: Denies chills or fever(s) Eyes Eyes: Denies change in vision or discharge from eye(s) ENT ENT ED: Denies discharge from eye(s), rhinorrhea or sore throat Cardiovascular Cardiovascular: Denies chest pain or palpitations Respiratory/Chest Respiratory/Chest: Denies cough or dyspnea Gastrointestinal Gastrointestinal: Denies abdominal pain, diarrhea, nausea or vomiting Genitourinary Genitourinary ED: Denies difficulty urinating or dysuria Musculoskeletal Musculoskeletal: Reports back pain and extremity pain Integumentary Denies Abrasions or rash Neurologic Neurologic: Reports paresthesias; Denies headache(s) or weakness Allergic/Immunologic Allergic/Immunologic ED: Denies lip swelling or urticaria EXAM Physical Exam Const Vital Signs: 02/25/23 14:47 Temperature 96.7 F L Temperature Source Temporal Pulse Rate 102 H Respiratory Rate 22 H Blood Pressure 135/83 H Blood Pressure Mean 100 Pulse Ox 93 Oxygen Delivery Method Room Air Positive well nourished and well developed General Appearance ED: well developed HEENT Reports normocephalic and head/scalp atraumatic Eyes PERRL and EOMs intact bilaterally Neck supple Chest Wall inspection of chest normal and palpation of chest normal Resp normal respiratory effort and clear to auscultation bilaterally Cardio regular rate and regular rhythm GI normal to inspection, nondistended, normoactive bowel sounds Palpation: soft Back/Spine Back/Spine Narrative: Reproducible tenderness of the right sciatic notch. Extremity normal to inspection Extremity Narrative: Strong distal pulses. Neuro oriented x3 and no sensory deficits noted Sensorium / Orientation: alert Motor Exam: strength 5/5 throughout Psych mental status grossly normal Skin no rashes or lesions noted MDM MDM MDM Narrative Medical decision making narrative: I did review patient's [facility] report. She is only had gabapentin prescribed. It does appear that she has had a history of opiate abuse and was on methadone at least 1 time. In light of this I will avoid any narcotics. Patient will be given Naprosyn, Flexeril, prednisone. She will call her PCP today for follow-up appointment. I do not believe she needs imaging as she does not have any history of trauma. Her symptoms and exam findings are all consistent with sciatica. Discharge Plan Triage Chief Complaint: Lower Extremity Injury ED Provider: Ashley Lo Dx/Rx/DC Orders Clinical Impression: Sciatica Instructions: Back Exercises: Lower Back Rotation, Back Exercises: Lower Back Stretch, Seated Hamstring Stretch, ED Back Exercises, Lumbar, ED Sciatica Prescriptions: New naproxen [Naprosyn] 500 mg tablet 500 mg PO BID PRN (Reason: pain) Qty: 20 0RF cyclobenzaprine 10 mg tablet 10 mg PO TID PRN (Reason: Muscle Spasm) Qty: 20 0RF prednisone 20 mg tablet 40 mg PO DAILY Qty: 8 0RF No Action gabapentin 600 MG tablet 600 mg PO TIDCM fluoxetine 10 MG capsule 40 mg PO DAILY methadone [Methadone Intensol] 10 mg/mL Concentrate 145 mg PO DAILY Multi For Her 18 mg iron-600 mcg-40 mcg Capsule 1 tab-cap PO DAILY cefdinir 300 mg capsule 300 mg PO BID Qty: 13 0RF peg 3350-electrolytes [Golytely] 236-22.74-6.74 -5.86 gram recon soln 240 ml PO Q10M PRN Qty: 4000 0RF Rx Instructions: until fecal effluent is clear amoxicillin-pot clavulanate [Augmentin] 875-125 mg tablet 1 tab PO BID 10 Days Qty: 20 0RF prednisone 20 mg tablet 40 mg PO DAILY 6 Days Qty: 12 0RF promethazine-codeine 6.25-10 mg/5 mL syrup 5 ml PO Q6H PRN (Reason: cough) 7 Days Qty: 140 0RF sulfamethoxazole-trimethoprim [Bactrim DS] 800-160 mg tablet 1 tab PO Q12H 10 Days Qty: 20 0RF cephalexin 500 mg capsule 500 mg PO Q6 7 Days Qty: 28 0RF Primary Care Provider: Sancho Teresa NP Referrals: Sancho Teresa NP, SENIOR INTERACTIVE PRODUCER-C [Primary Care Provider] - 1-2 Weeks
[2023-02-25] MEDS: predniSONE 20 MG Tablet 60 MG PO (15:14)
[2023-02-25] MEDS: cycloBENZAPRine HCl 10 MG Tablet PO (15:14)
[2023-02-25] MEDS: Naproxen 500 MG Tablet PO (15:14)
[2023-02-25 15:15] VITALS: BMI 40.5
== END 2023-02-25 15:28 | disposition home or self-care (01) ==
LOC: ED 15:24
PROVIDERS: Emergency Provider Emergency Medicine; PCP Nurse Practitioner Family; Visit Provider Emergency Medicine
DX: M54.31 Sciatica, right side (principal); J44.9 Chronic obstructive pulmonary disease, unspecified; M79.605 Pain in left leg; M79.604 Pain in right leg; M17.10 Unilateral primary osteoarthritis, unspecified knee; F17.210 Nicotine dependence, cigarettes, uncomplicated; G89.29 Other chronic pain; R20.2 Paresthesia of skin; Z79.52 Long term (current) use of systemic steroids
CPT/HCPCS: 99283

== ENCOUNTER 2023-03-30 14:39 | Emergency (ER) | payer MEDICAID, SELFPAY ==
[2023-03-30 14:41] VITALS: BP 127/100; PULSE 110; RESP 18; TEMP 37; O2SAT 100; BMI 41.5
== END 2023-03-30 15:07 | disposition left against medical advice (07) ==
LOC: ED 15:09
PROVIDERS: PCP Nurse Practitioner Family
DX: Z53.21 Procedure and treatment not carried out due to patient leaving prior to being seen by health care provider (principal)

== ENCOUNTER 2023-08-16 22:46 | Emergency (ER) | payer MEDICAID, SELFPAY ==
[2023-08-16 22:47] VITALS: BP 140/81; PULSE 87; RESP 16; TEMP 36.4; O2SAT 98
[2023-08-17] MEDS: Naproxen 250 MG Tablet 500 MG PO (00:31)
[2023-08-17] MEDS: Tetracaine/Benzocaine/Butamben 1 APPLIC TOPICAL (00:32)
[2023-08-17] MEDS: Clindamycin HCl 150 MG Capsule 300 MG PO (00:32)
--- NOTE | 2023-08-17 01:05 | EDS_ITS ---
HPI History of Present Illness Chief Complaint: Dental Informant: patient Narrative Narrative: 3 days gradual onset of pain in left maxillary canine that has bothered her before, but today it is swollen up into her cheek/face. No fevers or chills. No spontaneous discharge. [facility] Medical History Anxiety Chronic pain COPD (chronic obstructive pulmonary disease) Depression GERD (gastroesophageal reflux disease) Hepatitis Migraines Neuropathy Sleep apnea Smoker Substance abuse Home Medications gabapentin 600 mg tablet 600 mg PO TIDCM nerve pain 06/22/20 [History Last Taken 01/07/21 13:00] fluoxetine 10 mg capsule 40 mg PO DAILY depression 07/05/20 [History Last Taken Unknown] methadone 10 mg/mL oral concentrate (Methadone Intensol) 145 mg PO DAILY 06/22/21 [History Last Taken Unknown] [id number] fumarate 18 mg-FA 600 mcg-vit K 40 mcg capsule (Multi For Her) 1 tab-cap PO DAILY 06/22/21 [History Last Taken Unknown] cefdinir 300 mg capsule 300 mg PO BID #13 caps 06/23/21 [Rx Last Taken Unknown] peg 3350-electrolytes 236 gram-22.74 gram-6.74 gram-5.86 gram solution (Golytely) 240 ml PO Q10M PRN constipation #4,000 mL 06/23/21 [Rx Last Taken Unknown] amoxicillin 875 mg-potassium clavulanate 125 mg tablet (Augmentin) 1 tab PO BID 10 days #20 tabs 07/28/21 [Rx Last Taken Unknown] prednisone 20 mg tablet 40 mg (2 x 20 mg) PO DAILY 6 days #12 tabs 07/28/21 [Rx Last Taken Unknown] promethazine 6.25 mg-codeine 10 mg/5 mL syrup 5 ml PO Q6H PRN cough 7 days #140 mL 07/28/21 [Rx Last Taken Unknown] cephalexin 500 mg capsule 500 mg PO Q6 7 days #28 caps 02/17/22 [Rx Last Taken Unknown] sulfamethoxazole 800 mg-trimethoprim 160 mg tablet (Bactrim DS) 1 tab PO Q12H 10 days #20 tabs 02/17/22 [Rx Last Taken Unknown] cyclobenzaprine 10 mg tablet 10 mg PO TID PRN Muscle Spasm #20 TABLETS 02/25/23 [Rx Last Taken Unknown] naproxen 500 mg tablet (Naprosyn) 500 mg PO BID PRN pain #20 tabs 02/25/23 [Rx Last Taken Unknown] prednisone 20 mg tablet 40 mg (2 x 20 mg) PO DAILY #8 tabs 02/25/23 [Rx Last Taken Unknown] clindamycin HCl 300 mg capsule (Cleocin HCl) 300 mg PO Q6H #40 CAPSULES 08/17/23 [Rx Last Taken Unknown] Allergy/AdvReac Type Severity Reaction Status Date / Time levofloxacin [From Levaquin] Allergy Rash Verified 03/30/23 14:41 Penicillins Allergy Nausea Verified 03/30/23 14:41 Social History Smoking Status: Current every day smoker tobacco type: cigarettes ROS ROS ED Constitutional Constitutional ED: Denies chills or fever(s) Eyes Eyes: Denies change in vision or double vision ENT ENT ED: Reports dental pain; Denies sinus pain or throat swelling Cardiovascular Cardiovascular: Denies chest pain or palpitations Respiratory/Chest Respiratory/Chest: Denies cough or dyspnea Integumentary Denies abscess or rash Neurologic Neurologic: Denies headache(s), paresthesias or weakness EXAM Physical Exam Const Vital Signs: 08/16/23 22:47 Temperature 97.6 F L Temperature Source Temporal Pulse Rate 87 Respiratory Rate 16 Blood Pressure 140/81 H Blood Pressure Mean 100 Pulse Ox 98 Oxygen Delivery Method Room Air Positive well nourished and well developed General Appearance ED: well developed and NAD HEENT HEENT Narrative: Mild diffuse swelling left face, none of it is tender or erythematous except for right around the affected tooth. At that area, which is approximately #11, it is obviously focally decayed, and there appears to be a small pointing abscess of the gingiva just above/associated with it. It is small. Face and Sinus: sinuses nontender Throat: posterior oropharynx normal Eyes PERRL and EOMs intact bilaterally Neck no lymphadenopathy and supple Resp normal respiratory effort Neuro oriented x3 and CN's II-XII intact bilaterally Sensorium / Orientation: alert Gait (Neuro): normal gait Psych mental status grossly normal and thought process normal Skin no rashes or lesions noted and no wounds MDM MDM MDM Narrative Medical decision making narrative: Patient was amenable to poking the abscess to drain, there was a small amount of pus in there. Does not appear that the abscess itself goes up into her face, I think that is swelling secondary due to the infection. She has an allergy to penicillin so started on clindamycin and gave her precautions regarding antibiotic associated diarrhea, advised to use probiotic or yogurt daily and follow-up with a dentist. Procedures Other Procedures Procedure(s): Dental abscess drainage, simple: After verbal consent, topically anesthetized with benzocaine spray, and drained with a 23-gauge needle. A very small amount of purulent material was able to be aspirated tolerated well, patient irrigated herself with ice water. Tolerated well. Discharge Plan Triage Chief Complaint: Dental ED Provider: Abel Abernathy Dx/Rx/DC Orders Clinical Impression: Dental abscess Instructions: Dental Abscess Prescriptions: New clindamycin HCl [Cleocin HCl] 300 mg capsule 300 mg PO Q6H Qty: 40 0RF No Action gabapentin 600 MG tablet 600 mg PO TIDCM fluoxetine 10 MG capsule 40 mg PO DAILY methadone [Methadone Intensol] 10 mg/mL Concentrate 145 mg PO DAILY Multi For Her 18 mg iron-600 mcg-40 mcg Capsule 1 tab-cap PO DAILY cefdinir 300 mg capsule 300 mg PO BID Qty: 13 0RF peg 3350-electrolytes [Golytely] 236-22.74-6.74 -5.86 gram recon soln 240 ml PO Q10M PRN Qty: 4000 0RF Rx Instructions: until fecal effluent is clear amoxicillin-pot clavulanate [Augmentin] 875-125 mg tablet 1 tab PO BID 10 Days Qty: 20 0RF prednisone 20 mg tablet 40 mg PO DAILY 6 Days Qty: 12 0RF promethazine-codeine 6.25-10 mg/5 mL syrup 5 ml PO Q6H PRN (Reason: cough) 7 Days Qty: 140 0RF sulfamethoxazole-trimethoprim [Bactrim DS] 800-160 mg tablet 1 tab PO Q12H 10 Days Qty: 20 0RF cephalexin 500 mg capsule 500 mg PO Q6 7 Days Qty: 28 0RF naproxen [Naprosyn] 500 mg tablet 500 mg PO BID PRN (Reason: pain) Qty: 20 0RF cyclobenzaprine 10 mg tablet 10 mg PO TID PRN (Reason: Muscle Spasm) Qty: 20 0RF prednisone 20 mg tablet 40 mg PO DAILY Qty: 8 0RF Primary Care Provider: Sancho Teresa NP Referrals: Sancho Teresa NP, ASSURANCE ENGINEER-C [Primary Care Provider] - Dentist,Your [STAFF PHYSICIAN] - As soon as possible Disposition Disposition: Home, Self Care
== END 2023-08-17 01:12 | disposition home or self-care (01) ==
PROVIDERS: Emergency Provider Emergency Medicine; PCP Nurse Practitioner Family; Referring Provider Emergency Medicine; Visit Provider Emergency Medicine
DX: K04.7 Periapical abscess without sinus (principal); J44.9 Chronic obstructive pulmonary disease, unspecified; F41.9 Anxiety disorder, unspecified; G89.29 Other chronic pain; F32.A Depression, unspecified; K21.9 Gastro-esophageal reflux disease without esophagitis; G62.9 Polyneuropathy, unspecified; G47.30 Sleep apnea, unspecified; F17.210 Nicotine dependence, cigarettes, uncomplicated; Z79.899 Other long term (current) drug therapy
CPT/HCPCS: 99284

== ENCOUNTER 2023-10-28 17:34 | Emergency (ER) | payer MEDICAID, SELFPAY ==
[2023-10-28 17:34] VITALS: BP 157/92; PULSE 84; RESP 20; TEMP 36.4; O2SAT 100
--- NOTE | 2023-10-28 18:19 | ED.RN ---
PT NOW SATES SHE IS HAVING NUMBNESS TO TO HER RIGHT LABIA AND MOUTH. PT STATES SHE LOST HER JOB BECAUSE OF ALL THESE PROBLEMS WITH HER LEGS AND HER TEETH.
--- NOTE | 2023-10-28 18:27 | CT_ITS ---
INDICATION: abd pain, constipation EXAMINATION: CT ABDOMEN AND PELVIS WITHOUT CONTRAST - CT Abdomen And Pelvis W/O Contrast Injection TECHNIQUE: Helically acquired images were obtained of the abdomen and pelvis without oral or IV contrast. A radiation dose optimization technique was used for this scan. IV Contrast dosage and agent: None. Oral contrast: None. RADIATION DOSAGE (If Supplied By Facility): CTDIvol = ( 23.21 ) mGy, DLP = ( 1142.34 ) mGycm COMPARISON: June 23, 2021 FINDINGS: LOWER CHEST: Lung bases are clear. No cardiomegaly or pericardial effusion. The lack of intravenous contrast limits evaluation of solid visceral organs. LIVER: Homogeneous. No focal mass. GALLBLADDER AND BILIARY TREE: No calcified gallstones. No gallbladder distension or wall edema. No intra- or extrahepatic biliary ductal dilation. PANCREAS: No focal cystic or solid mass. SPLEEN: Normal size without focal cystic or solid mass. ADRENAL GLANDS: No nodules. KIDNEYS AND URETERS: Normal renal size and position. No hydronephrosis. PERITONEUM: No ascites or free air. No other fluid collection. BOWEL: No evidence of acute appendicitis. No stomach or bowel distension. There is a moderate amount of stool throughout the colon. No focal inflammatory change. LYMPH NODES: No enlarged mesenteric or retroperitoneal lymph nodes. VESSELS: Aorta is non-dilated. URINARY BLADDER: Unremarkable. REPRODUCTIVE ORGANS: No pelvic masses. ABDOMINAL WALL: No discrete abdominal or pelvic wall hernia. BONES: There are bilateral L5 pars defects. There is multilevel degenerative disc disease. There is a separate dedicated CT report of the lumbar spine. CT/Abdomen/Pelvis without Cont IMPRESSION: Moderate amount of stool throughout the colon. Electronically Signed: Veronica Sanderson MD at 19:31 EST ,
--- NOTE | 2023-10-28 18:29 | CT_ITS ---
INDICATION: pain, sciatica EXAMINATION: CT LUMBAR SPINE - CT Spine Lumbar W/O Contrast Injection TECHNIQUE: Helically acquired images were obtained of the lumbar spine. 2D reformats were reviewed. A radiation dose optimization technique was used for this scan. IV Contrast dosage and agent: None. RADIATION DOSAGE (If Supplied By Facility): CTDIvol = ( 50.59 ) mGy, DLP = ( 1723.13 ) mGycm COMPARISON: CT of the abdomen and pelvis dated June 23, 2021 FINDINGS: VERTEBRAE: There are stable bilateral L5 pars defects. No discrete lytic or blastic abnormality observed. Normal alignment. DISCS and SPINAL CANAL: There is multilevel degenerative disc disease. There is multilevel facet hypertrophy. No critical stenosis. VISUALIZED ABDOMEN: There is a separate dedicated port of the abdomen and pelvis. CT/Spine Lumbar without Contrast IMPRESSION: Multilevel degenerative disc disease. Stable bilateral L5 pars defects. Electronically Signed: Veronica Sanderson MD at 19:27 EST ,
--- NOTE | 2023-10-28 18:29 | EDS_ITS ---
HPI History of Present Illness Chief Complaint: Numb/Ting Detail of Chief Complaint: Sciatica Informant: patient Narrative Narrative: Patient presents secondary to sciatica pain ongoing for the last several weeks to months. She states has never had problems with her back previously, but this is recently become an issue. No recent falls or injury. She has had numbness in her leg as well as to her right labia for at least a week and 1/2 to 2 weeks. No problems with bowel or bladder control. She does report constipation. She does state when she cleans her bowels out she often will have some relief of her pain. Patient is currently on methadone. She is been taking ibuprofen intermittently. She states her doctor sent her in for a CT scan of her back and possible steroid treatment. [facility] Medical History Anxiety Chronic pain COPD (chronic obstructive pulmonary disease) Depression GERD (gastroesophageal reflux disease) Hepatitis Migraines Neuropathy Sleep apnea Smoker Substance abuse Home Medications gabapentin 600 mg tablet 600 mg PO TIDCM nerve pain 06/22/20 [History Last Taken 01/07/21 13:00] fluoxetine 10 mg capsule 40 mg PO DAILY depression 07/05/20 [History Last Taken Unknown] methadone 10 mg/mL oral concentrate (Methadone Intensol) 190 mg PO DAILY 06/22/21 [History Last Taken Unknown] [id number] fumarate 18 mg-FA 600 mcg-vit K 40 mcg capsule (Multi For Her) 1 tab-cap PO DAILY 06/22/21 [History Last Taken Unknown] naproxen 500 mg tablet (Naprosyn) 500 mg PO BID PRN pain #20 tabs 02/25/23 [Rx Last Taken Unknown] clindamycin HCl 300 mg capsule (Cleocin HCl) 300 mg PO Q6H #40 CAPSULES 08/17/23 [Rx Last Taken Unknown] cyclobenzaprine 10 mg tablet 10 mg PO TID PRN Muscle Spasm #20 TABLETS 10/28/23 [Rx Last Taken Unknown] prednisone 20 mg tablet 40 mg (2 x 20 mg) PO DAILY #10 tabs 10/28/23 [Rx Last Taken Unknown] Allergy/AdvReac Type Severity Reaction Status Date / Time levofloxacin [From Levaquin] Allergy Rash Verified 10/28/23 17:38 Penicillins Allergy Nausea Verified 10/28/23 17:38 Social History Smoking Status: Current every day smoker tobacco type: cigarettes ROS ROS ED Constitutional Constitutional ED: Denies chills or fever(s) Eyes Eyes: Denies discharge from eye(s) ENT ENT ED: Denies discharge from eye(s), rhinorrhea or sore throat Cardiovascular Cardiovascular: Denies chest pain or palpitations Respiratory/Chest Respiratory/Chest: Denies cough or dyspnea Gastrointestinal Gastrointestinal: Reports constipation; Denies abdominal pain, nausea or vomiting Genitourinary Genitourinary ED: Denies dysuria Musculoskeletal Musculoskeletal: Reports back pain and extremity pain Integumentary Denies Abrasions or rash Neurologic Neurologic: Reports paresthesias and weakness; Denies headache(s) Psychiatric Psychiatric: Denies anxiety or depression Allergic/Immunologic Allergic/Immunologic ED: Denies lip swelling or urticaria EXAM Physical Exam Const Vital Signs: 10/28/23 17:34 10/28/23 19:46 Temperature 97.6 F L Temperature Source Temporal Pulse Rate 84 73 Respiratory Rate 20 H 16 Blood Pressure 157/92 H 125/55 H Blood Pressure Mean 113 78 Pulse Ox 100 Oxygen Delivery Method Room Air Positive well nourished and well developed General Appearance ED: well developed HEENT Reports moist mucous membranes Eyes EOMs intact bilaterally Chest Wall inspection of chest normal and palpation of chest normal Resp normal respiratory effort and clear to auscultation bilaterally Cardio regular rate and regular rhythm GI non-tender Auscultation: normoactive bowel sounds Palpation: soft Neuro oriented x3 MDM MDM MDM Narrative Medical decision making narrative: IV line established. Patient given Toradol for pain. Labwork obtained to evaluate for leukocytosis, anemia, and electrolyte derangement. Urinalysis obtained to evaluate for infection/hematuria. CT scan of flank obtained along with CT of the lumbar spine to evaluate for any acute bony abnormalities. History & Record Review Discussion w/independent historian: Patient Lab Data Attestation: I reviewed the patient's lab results. Labs: Laboratory Results - last 24 hr 10/28/23 10/28/23 18:45 19:45 WBC 5.2 RBC 4.76 Hgb 10.0 L Hct 33.5 L MCV 70.4 L MCH 21.0 L MCHC 29.9 L RDW Std Deviation 53.3 H RDW Coeff of Oscar 21.6 H Plt Count 306 MPV 9.7 Immature Gran % (Auto) 0.400 Neut % (Auto) 51.4 Lymph % (Auto) 41.2 H Maverick % (Auto) 5.4 Eos % (Auto) 1.2 Baso % (Auto) 0.4 Absolute Neuts (auto) 2.7 Absolute Lymphs (auto) 2.14 Nucleated RBC % 0 Differential Comment SCANNED Anisocytosis 2+ Sodium 140 Potassium 3.8 Chloride 108 H Carbon Dioxide 26.0 Anion Gap 6 BUN 11 Creatinine 0.98 Est GFR (MDRD) Af Amer 82 Est GFR (MDRD) Non-Af 67 BUN/Creatinine Ratio 11.2 Glucose 92 Calcium 8.7 Total Bilirubin 0.20 Direct Bilirubin 0.08 AST 16 ALT 20 Alkaline Phosphatase 125 H Total Protein 7.4 Albumin 3.2 Globulin 4.2 Urine Color Yellow Urine Clarity Clear Urine pH 6.0 Ur Specific [place] 1.020 Urine Protein 15 H Urine Glucose (UA) Normal Urine Ketones 5 H Urine Occult Blood 10 H Urine Nitrite Negative Urine Bilirubin Negative Urine Urobilinogen 1 H Ur Leukocyte Esterase 100 H Urine RBC 0 SEEN Urine WBC 0-5 SEEN Ur Squamous Epith Cells 0-5 SEEN Urine Bacteria 0 SEEN Urine Mucus 0 SEEN Radiography Diagnostic Testing: Clinical Impression(s) from Imaging Studies Abdomen/Pelvis CT 10/28/23 18:27 IMPRESSION: Moderate amount of stool throughout the colon. Electronically Signed: Veronica Sanderson MD at 19:31 EST Reading Location ID and State: [facility] / [place] Tel , Service support , Lumbar Spine CT 10/28/23 18:29 IMPRESSION: Multilevel degenerative disc disease. Stable bilateral L5 pars defects. Electronically Signed: Veronica Sanderson MD at 19:27 EST , Treatment and Re-Evaluation :: CBC was normal white count of 5.2 with normal differential. Hemoglobin is 10.0. Chemistry studies unremarkable. LFTs normal. Urinalysis reveals no evidence of acute infection. CT scan of the abdomen and pelvis reveals moderate moderate stool throughout the colon. CT of the lumbar spine reveals multilevel degenerative changes and stable bilateral L5 pars defects. Patient is currently on methadone. I will give her a burst of steroids and try some Flexeril to see if we can ease muscle spasm off of the sciatic nerve. We discussed using her MiraLAX to get her cleaned out and then staying on it on a regular basis to help control her constipation. Patient will follow-up with her primary care physician for further testing. Discharge Plan Triage Chief Complaint: Numb/Ting ED Provider: Ashley Lo Dx/Rx/DC Orders Clinical Impression: Sciatica Instructions: ED Sciatica Prescriptions: New prednisone 20 mg tablet 40 mg PO DAILY Qty: 10 0RF cyclobenzaprine 10 mg tablet 10 mg PO TID PRN (Reason: Muscle Spasm) Qty: 20 0RF No Action gabapentin 600 MG tablet 600 mg PO TIDCM fluoxetine 10 MG capsule 40 mg PO DAILY methadone [Methadone Intensol] 10 mg/mL Concentrate 190 mg PO DAILY Multi For Her 18 mg iron-600 mcg-40 mcg Capsule 1 tab-cap PO DAILY naproxen [Naprosyn] 500 mg tablet 500 mg PO BID PRN (Reason: pain) Qty: 20 0RF clindamycin HCl [Cleocin HCl] 300 mg capsule 300 mg PO Q6H Qty: 40 0RF Primary Care Provider: Sancho Teresa NP Referrals: Sancho Teresa NP, CONTENT DEVELOPMENT MANAGER-C [Primary Care Provider] - 5-7 Days Disposition Disposition: Home, Self Care
[2023-10-28 18:59] LABS: Absolute Lymphocyte Count 2.14 X10^3/uL (0.83-4.51); Absolute Neutrophil Count 2.7 X10^3/uL (2.0-7.7); Basophil# 0.02 X10^3/uL; Basophil% 0.4 % (0-1); Eosinophil# 0.06 X10^3/uL; Eosinophils% 1.2 % (0-5); Hematocrit 33.5 % (37-47); Lymphocyte # 2.14 X10^3/ul (0.83-4.51); Lymphocyte % 41.2 % (19-41); Mean Corp Hgb Conc 29.9 g/dL (32-36); Mean Corpuscular Volume 70.4 fL (81-99); Mean Platelet Vol. 9.7 fl (6.2-12.0); Monocyte# 0.28 X10^3/uL; Monocyte% 5.4 % (0-10); NRBC Flagged by Analyzer 0 % (0-5); Neutrophil # 2.68 X10^3/uL (2.7-7.7); Neutrophil % 51.4 % (47-70); POSITIVE MORPHOLOGY YES; Platelet Count 306 K/mm3 (150-450); RBC Distribution Width CV 21.6 % (11.6-14.6); RBC Distribution Width SD 53.3 fl (35.1-43.9); Red Blood Count 4.76 M/mm3 (4.2-5.4); White Blood Count 5.2 K/mm3 (4.4-11.0)
[2023-10-28 19:00] LABS: Differential Indicated SCAN CRITERIA MET
[2023-10-28] MEDS: 0.9% Normal Saline (1000mL) 1,000 ML 1000 ML IV (19:00)
[2023-10-28] MEDS: Ketorolac 30 MG/ML Syringe IV (19:00)
[2023-10-28 19:19] LABS: AST(SGOT) 16 U/L (15-37); Alanine Aminotransfer ALT/SGPT 20 U/L (13-56); Albumin, Serum 3.2 g/dL (3.2-5.0); Alkaline Phosphatase 125 U/L (45-117); Anion Gap 6 (5-15); BUN 11 mg/dL (7-18); BUN/Creat Ratio 11.2 RATIO (10-20); Bilirubin, Direct 0.08 mg/dL (0.00-0.30); Calcium,Total 8.7 mg/dL (8.5-10.1); Chloride 108 mmol/L (98-107); Creatinine, Serum 0.98 mg/dL (0.55-1.02); EST Glomerular Filtration Rate 67 mL/min (>60); Est Glom Filt Rate - Afr Amer 82 mL/min (>60); Globulin 4.2 g/dL (2.2-4.2); Glucose 92 mg/dL (74-106); Potassium 3.8 mmol/L (3.5-5.1); Protein, Total 7.4 g/dL (6.4-8.2); Sodium Level 140 mmol/L (136-145)
[2023-10-28 19:29] LABS: Anisocytosis 2+; Differential Comment SCANNED
[2023-10-28 19:46] VITALS: BP 125/55; PULSE 73; RESP 16
[2023-10-28 19:49] LABS: Bacteria 0 SEEN /hpf (None Seen); Mucous, Urine 0 SEEN /hpf (<or=2+); Red Blood Cells-Urine 0 SEEN /hpf (0-5)
[2023-10-28 20:05] LABS: Color, Urine Yellow (Yellow); Glucose, Dipstick Normal (Normal); Ketone-Dipstick 5 mg/dl (Negative); Leukocyte Esterase-Dipstick 100 /ul (Negative); Nitrite-Dipstick Negative (Negative); Occult Blood-Urine 10 /ul (Negative); Protein-Dipstick 15 mg/dl (Negative); Urine Bilirubin Dipstick Negative (Negative); Urine Clarity Clear (Clear); Urine Urobilinogen 1 mg/dl (Normal)
[2023-10-28 20:20] LABS: Squamous Epithelial Cells - UA 0-5 SEEN /hpf (5-10); White Blood Cells 0-5 SEEN /hpf (0-5)
[2023-10-28] MEDS: predniSONE 20 MG Tablet 60 MG PO (20:38)
[2023-10-28] MEDS: cycloBENZAPRine HCl 10 MG Tablet PO (20:38)
[2023-10-28 20:39] VITALS: BP 126/94; PULSE 88; RESP 16; TEMP 36.4; O2SAT 95
[2023-10-28 20:40] VITALS: BP 126/94; PULSE 74; RESP 12; TEMP 36.8; O2SAT 100
== END 2023-10-28 20:41 | disposition home or self-care (01) ==
PROVIDERS: Emergency Provider Emergency Medicine; PCP Nurse Practitioner Family; Visit Provider Emergency Medicine
DX: M54.30 Sciatica, unspecified side (principal); J44.9 Chronic obstructive pulmonary disease, unspecified; K59.00 Constipation, unspecified; Z79.899 Other long term (current) drug therapy; F17.210 Nicotine dependence, cigarettes, uncomplicated
CPT/HCPCS: 72131; 74176; 80048; 80076; 81001; 85025; 96361; 96374; 99284; J7030; A4216

== ENCOUNTER 2023-12-16 15:10 | Inpatient (IN) | payer MEDICAID, SELFPAY ==
[2023-12-16 15:10] VITALS: BP 121/78; PULSE 63; RESP 18; TEMP 36.7; O2SAT 98; BMI 42.2
--- NOTE | 2023-12-16 15:34 | EDS_ITS ---
HPI History of Present Illness Chief Complaint: Lower Extremity Injury Detail of Chief Complaint: Right groin and leg pain Informant: patient Narrative Narrative: Patient presents with right leg and groin pain that she has had for about 6 m ont. Patient has been seen by her primary care physician. She had a CT in October of this year of the lumbar spine that showed degenerative disc disease. Patient had an appointment to have a EMG yesterday on her right leg which she can tolerate the test or finish it. This morning woke up with severe pain. She is having a hard time standing and walking secondary to pain. She denies any change in bowel or bladder function. Patient describes discomfort into her right buttock. And pain that radiates all the way down to her foot. [facility] Medical History Anxiety Chronic pain COPD (chronic obstructive pulmonary disease) Depression GERD (gastroesophageal reflux disease) Hepatitis Migraines Neuropathy Sleep apnea Smoker Substance abuse Home Medications methadone 10 mg/mL oral concentrate (Methadone Intensol) 190 mg PO DAILY 06/22/21 [History Last Taken 12/15/23] [id number] fumarate 18 mg-FA 600 mcg-vit K 40 mcg capsule (Multi For Her) 1 tab-cap PO DAILY 06/22/21 [History Last Taken 12/15/23] naproxen 500 mg tablet (Naprosyn) 500 mg PO BID PRN pain #20 tabs 02/25/23 [Rx Last Taken 12/15/23] cyclobenzaprine 10 mg tablet 10 mg PO TID PRN Muscle Spasm #20 TABLETS 10/28/23 [Rx Last Taken Unknown] gabapentin 800 mg tablet 800 mg PO TID 12/16/23 [History Last Taken 12/15/23] nystatin 100,000 unit/gram topical powder 1 applic topical 4X/DAY 12/16/23 [History Last Taken 12/15/23] Allergy/AdvReac Type Severity Reaction Status Date / Time levofloxacin [From Levaquin] Allergy Rash Verified 12/16/23 15:13 Penicillins Allergy Nausea Verified 12/16/23 15:13 Social History Smoking Status: Current every day smoker tobacco type: cigarettes ROS ROS ED Review of Systems ROS Unobtainable: other Constitutional Constitutional ED: Reports lethargy; Denies chills, fever(s), sweats or weight loss Eyes Eyes: Denies blurry vision, change in vision or diplopia ENT ENT ED: Denies rhinorrhea or sore throat Cardiovascular Cardiovascular: Denies chest pain, orthopnea or racing heartbeat Respiratory/Chest Respiratory/Chest: Denies cough, dyspnea, dyspnea on exertion, orthopnea or sputum Gastrointestinal Gastrointestinal: Denies abdominal pain, diarrhea, nausea or vomiting Genitourinary Genitourinary ED: Denies dysuria, hematuria or urinary frequency Musculoskeletal Musculoskeletal: Reports other Details: Right leg pain ; Denies arthralgias, back pain, myalgias or neck pain Integumentary Denies abscess, Abrasions or rash Neurologic Neurologic: Denies headache(s) or weakness Psychiatric Psychiatric: Denies anxiety, depression or suicidal thoughts Endocrine Endocrinology: Denies polydipsia, polyphagia or polyuria Hematologic/Lymphatic Hematologic/Lymphatic: Denies easy bleeding, easy bruising or lymphadenopathy Allergic/Immunologic Allergic/Immunologic ED: Denies mouth swelling, tongue swelling or urticaria EXAM Physical Exam Const Vital Signs: 12/16/23 15:10 12/16/23 16:18 Temperature 98.0 F Temperature Source Oral Pulse Rate 63 Respiratory Rate 18 Respiratory Effort Normal Respiratory Pattern Normal Blood Pressure 121/78 H Blood Pressure Mean 92 Pulse Ox 98 Oxygen Delivery Method Room Air Positive well nourished and well developed General Appearance ED: well developed and NAD HEENT Reports TM's clear and moist mucous membranes normocephalic and atraumatic; Negative for trauma or tenderness Tympanic Membrane ED: Yes TM's clear Eyes PERRL and EOMs intact bilaterally General Eye ED: Negative for pale conjunctiva or scleral icterus Neck no lymphadenopathy, supple and no JVD General: Negative for tenderness Chest Wall inspection of chest normal and palpation of chest normal Chest: Negative for tenderness Resp normal respiratory effort and clear to auscultation bilaterally Effort and Inspection: Negative for respiratory distress or pain with movement Auscultation: Negative for rhonchi, wheezes or diminished lung sounds Cardio regular rate, regular rhythm, S1 normal heart sound, S2 normal heart sound and no murmurs Peripheral Pulses: pulses 2+ throughout GI normal to inspection, nondistended, normoactive bowel sounds, soft to palpation, non-tender, non-distended and no masses Back/Spine no CVA tenderness and no thoracic nor lumbar tenderness Back/Spine Narrative: Tenderness in the right buttock. She has positive straight leg raise on the right while supine at about 35 degrees. Neurovascular intact distally. Deep tendon reflexes plus 2 out of 4 bilaterally at the patella and Achilles. She has normal L5 extension bilaterally. She has normal sensation to light touch Extremity normal to inspection General Extremety ED: Negative for edema General Extremity: Negative for edema Neuro oriented x3, CN's II-XII intact bilaterally, no sensory deficits noted and gait normal Sensorium / Orientation: awake, alert, oriented to person, oriented to place and oriented to time Motor Exam: strength 5/5 throughout and strength abnormal Psych mental status grossly normal Skin no rashes or lesions noted and no wounds MDM MDM MDM Narrative Medical decision making narrative: Patient presents with acute on chronic right leg pain. No prior MRI. Patient currently takes methadone due to prior history of heroin abuse. IV line will be established. I discussed treat her pain with anti-inflammatories and muscle relaxers as well as steroids. She would like something stronger for pain and a limited amount of narcotic pain medicine to help manage her pain. I will give her 1 mg of Dilaudid IV. Patient continues to have significant discomfort. Requires help to the restroom with ambulation. I did obtain basic labs CBC with differential count of 5.6 with hemoglobin 10.7 and platelet count of 240. Chemistries were unremarkable. Urinalysis ordered and pending. Discussed case with hospitalist will evaluate patient for admission. She has had ongoing back pain for over 6 months and she has had CT of the lumbar spine as well as CT of the abdomen pelvis. Feel she may need further imaging such as MRI to evaluate further for lumbar radiculopathy. Lab Data Attestation: I reviewed the patient's lab results. Labs: Laboratory Results - last 24 hr 12/16/23 15:48 WBC 5.6 RBC 4.83 Hgb 10.7 L Hct 34.9 L MCV 72.3 L MCH 22.2 L MCHC 30.7 L RDW Std Deviation 56.3 H RDW Coeff of Oscar 21.7 H Plt Count 240 MPV 10.1 Immature Gran % (Auto) 0.200 Neut % (Auto) 36.4 L Lymph % (Auto) 54.5 H [place] % (Auto) 6.8 Eos % (Auto) 1.6 Baso % (Auto) 0.5 Absolute Neuts (auto) 2.0 Absolute Lymphs (auto) 3.06 Nucleated RBC % 0 Differential Comment Sodium 141 Potassium 3.6 Chloride 111 H Carbon Dioxide 27.0 Anion Gap 3 L BUN 10 Creatinine 1.14 H Estim Creat Clear Calc 85.59 Est GFR (MDRD) Af Amer 69 Est GFR (MDRD) Non-Af 57 L BUN/Creatinine Ratio 8.8 L Glucose 107 H Calcium 9.4 Discharge Plan Triage Chief Complaint: Lower Extremity Injury Other Complaint: Other, Pain/Inj ED Provider: Kimi Bonilla Dx/Rx/DC Orders Clinical Impression: History of COPD, Lumbar radiculopathy, Intractable back pain Prescriptions: No Action methadone [Methadone Intensol] 10 mg/mL Concentrate 190 mg PO DAILY Multi For Her 18 mg iron-600 mcg-40 mcg Capsule 1 tab-cap PO DAILY naproxen [Naprosyn] 500 mg tablet 500 mg PO BID PRN (Reason: pain) Qty: 20 0RF cyclobenzaprine 10 mg tablet 10 mg PO TID PRN (Reason: Muscle Spasm) Qty: 20 0RF gabapentin 800 mg tablet 800 mg PO TID nystatin 100,000 unit/gram powder 1 applic topical 4X/DAY Primary Care Provider: Sancho Teresa NP Referrals: Sancho Teresa NP, [employer] [Primary Care Provider] - Disposition Disposition: Acute Care [facility]
[2023-12-16] MEDS: HYDROmorphone 1 MG/ML Syringe IV (15:58)
[2023-12-16] MEDS: Ketorolac 30 MG/ML Syringe IV ×2 (15:58→22:07)
[2023-12-16 15:59] LABS: Absolute Lymphocyte Count 3.06 X10^3/uL (0.83-4.51); Basophil# 0.03 X10^3/uL; Basophil% 0.5 % (0-1); Eosinophil# 0.09 X10^3/uL; Eosinophils% 1.6 % (0-5); Hematocrit 34.9 % (37-47); Hemoglobin 10.7 g/dL (12.0-15.0); Lymphocyte # 3.06 X10^3/ul (0.83-4.51); Lymphocyte % 54.5 % (19-41); Mean Corp Hgb Conc 30.7 g/dL (32-36); Mean Corpuscular Hgb 22.2 pg (27.0-32.0); Mean Corpuscular Volume 72.3 fL (81-99); Mean Platelet Vol. 10.1 fl (6.2-12.0); Monocyte# 0.38 X10^3/uL; Monocyte% 6.8 % (0-10); NRBC Flagged by Analyzer 0 % (0-5); Neutrophil # 2.04 X10^3/uL (2.7-7.7); Neutrophil % 36.4 % (47-70); POSITIVE MORPHOLOGY YES; Platelet Count 240 K/mm3 (150-450); RBC Distribution Width CV 21.7 % (11.6-14.6); RBC Distribution Width SD 56.3 fl (35.1-43.9); Red Blood Count 4.83 M/mm3 (4.2-5.4); White Blood Count 5.6 K/mm3 (4.4-11.0)
[2023-12-16] MEDS: Orphenadrine 60 MG/2 ML Ampul IM (15:59)
[2023-12-16 16:01] LABS: Differential Indicated SCAN CRITERIA MET
[2023-12-16 16:14] LABS: Anion Gap 3 (5-15); BUN 10 mg/dL (7-18); BUN/Creat Ratio 8.8 RATIO (10-20); Calcium,Total 9.4 mg/dL (8.5-10.1); Chloride 111 mmol/L (98-107); Creatinine, Serum 1.14 mg/dL (0.55-1.02); EST Glomerular Filtration Rate 57 mL/min (>60); Est Glom Filt Rate - Afr Amer 69 mL/min (>60); Estimated Creatinine Clearance 85.59 ml/min; Glucose 107 mg/dL (74-106); Potassium 3.6 mmol/L (3.5-5.1); Sodium Level 141 mmol/L (136-145)
--- NOTE | 2023-12-16 16:34 | HP.PCM.HOS_ITS ---
HPI - General General Date of Admission: 12/16/23 Date of Service: 12/16/23 Chief Complaint: Intractable back pain, RLE pain/radiculopathy. HPI Narrative The patient is a 37 y/o F w/ PMHx: COPD, Chronic anemia, Anxiety and Depression, JOSEFINA on CPAP, Morbid obesity, Chronic pain syndrome, Hx Polysubstance abuse on methadone w/ prior Heroin IV usage/Methamphetamines with Hepatitis C untreated, GERD, Chronic migraines, Tobacco use who presents to the [facility] ED on 12/16/23 with history of persistent right lower extremity, groin and lumbar back pain ongoing for the last 6 months following with her primary care with 10/2023 CT of the lumbar spine with evidence of degenerative disc disease with EMG the day prior to current presentation however she was unable to tolerate secondary to discomfort and the test was discontinued awakening on day of presentation with severe lumbar back pain with radiculopathy with inability to stand or walk because the discomfort notably more so in the right buttock with radiation all the way down to her right foot with no change in bowel or bladder or paresthesias but given worsened status prompted ED evaluation. Workup in the ED included T98, heart rate 63, BP 121/78, respiratory rate 18, 98% on room air, CBC with WBC 5.6, hemoglobin 10.7, MCV 72.3, platelet 240 without marked shift, BMP with chloride 111, BUN/creatinine 10/1.14, glucose 107. In the ED patient administered Norflex 60 mg IM x 1, Toradol 30 mg IV x 1 and eventually Dilaudid 1 mg IV x 1 without marked improvement. [facility] Medical History Anxiety and depression Chronic pain COPD (chronic obstructive pulmonary disease) GERD (gastroesophageal reflux disease) Hepatitis C History of heroin abuse History of intravenous drug use in remission History of methamphetamine abuse Migraines Neuropathy Sleep apnea Smoker Home Medications methadone 10 mg/mL oral concentrate (Methadone Intensol) 190 mg PO DAILY 06/22/21 [History Last Taken 12/15/23] [id number] fumarate 18 mg-FA 600 mcg-vit K 40 mcg capsule (Multi For Her) 1 tab-cap PO DAILY 06/22/21 [History Last Taken 12/15/23] naproxen 500 mg tablet (Naprosyn) 500 mg PO BID PRN pain #20 tabs 02/25/23 [Rx Last Taken 12/15/23] cyclobenzaprine 10 mg tablet 10 mg PO TID PRN Muscle Spasm #20 TABLETS 10/28/23 [Rx Last Taken Unknown] gabapentin 800 mg tablet 800 mg PO TID 12/16/23 [History Last Taken 12/15/23] nystatin 100,000 unit/gram topical powder 1 applic topical 4X/DAY 12/16/23 [Hist ory Last Taken 12/15/23] Allergy/AdvReac Type Severity Reaction Status Date / Time levofloxacin [From Levaquin] Allergy Rash Verified 12/16/23 15:13 Penicillins Allergy Nausea Verified 12/16/23 15:13 Family History (Updated 12/16/23 @ 20:[address] Marie Coleman MD) Mother Substance abuse Osteoporosis other (Patient does not know her father nor her paternal family history.) Surgical History (Updated 12/16/23 @ 20:[address] Marie Coleman MD) History of surgery on extremity Social History (Updated 12/16/23 @ 20:[address] Marie Coleman MD) household members: children Smoking Status: Current every day smoker tobacco type: cigarettes Smoking packs per day: 1 Smoking cigarettes per day: 20.0 alcohol intake: never substance use type: former substance user Date of last use: Prior IVDA, including heroin/methamphetamines. ROS ROS Narrative Admission Review of Systems: CONSTITUTIONAL: No weight loss, fever, chills, + weakness or fatigue. HEENT: Eyes: No visual loss, blurred vision, double vision or yellow sclerae. Ears, Nose, Throat: No hearing loss, sneezing, congestion, runny nose or sore throat. SKIN: No rash or itching, lesions, wounds. CARDIOVASCULAR: No chest pain, chest pressure or chest discomfort, palpitations, edema, orthopnea, syncopal events. RESPIRATORY: No shortness of breath, cough or sputum, wheezing, hemoptysis. GASTROINTESTINAL: No anorexia, nausea, vomiting or diarrhea, abdominal pain, melena, BRBPR. GENITOURINARY: No dysuria, frequency, urgency or retention. NEUROLOGICAL: + Significant lumbar back discomfort with right lower extremity radiculopathy. No headache, dizziness, syncope, paralysis, ataxia, focal weakness, change in bowel or bladder control, seizure. MUSCULOSKELETAL: + muscle, back pain, joint pain or stiffness. HEMATOLOGIC: + Chronic anemia. No bleeding or bruising. LYMPHATICS: No enlarged nodes. No history of splenectomy. PSYCHIATRIC: + History of anxiety and depression. ENDOCRINOLOGIC: No reports of sweating, cold or heat intolerance. No polyuria or polydipsia. ALLERGIES: No history of asthma, hives, eczema or rhinitis. Vital Signs Vital Signs Vital Signs: 12/16/23 15:10 12/16/23 16:18 Temperature 98.0 F Temperature Source Oral Pulse Rate 63 Respiratory Rate 18 Respiratory Effort Normal Respiratory Pattern Normal Blood Pressure 121/78 H Blood Pressure Mean 92 Pulse Ox 98 Oxygen Delivery Method Room Air Weight Weight: 253 lb 12.033 oz Body Mass Index (BMI) 42.2 Physical Exam Narrative Physical Examination: General: Awake, alert, oriented x 3 and cooperative, seated upright in the ED bed, uncomfortable appearing especially with any attempted movement. Skin: Normal color, normal turgor, no icterus, no cyanosis except occasional staged ecchymoses. HEENT: AT/NC, EOMI, PERRLA, dry MM, no carotid bruits or JVD noted. Lungs: Diminished, greater bases, occasional end expiratory wheeze, no rales or rhonchi. Heart: Regular rate and rhythm; no gallop, rub audible. Abdomen: Soft, morbidly obese, NTTP, mildly hyperactive BS, difficult to assess distention and HSM given habitus. Extremities: No cyanosis, no clubbing, mild ankle not markedly pitting edema. Neurological: Patient awake, alert, oriented as noted, cognitive function intact; pupils equally reactive to light and accommodation, cranial nerves grossly normal, moving all 4 extremities except extremely limited especially right lower extremity movement secondary to shooting pain with right lower extremity radiculopathy initiating in the lumbar spine, worse with any movement, sensation intact, no focal deficits, strength severely globally decreased secondary to acute complaints Psychiatric: Affect appears uncomfortable, fatigued, no acute evidence of dep ressive or anxiety feelings but does have underlying history. Results Lab / Micro Data 12/16/23 15:48 12/16/23 15:48 Labs: Laboratory Results - last 24 hr 12/16/23 15:48: WBC 5.6, RBC 4.83, Hgb 10.7 L, Hct 34.9 L, MCV 72.3 L, MCH 22.2 L, MCHC 30.7 L, RDW Std Deviation 56.3 H, RDW Coeff of Oscar 21.7 H, Plt Count 240, MPV 10.1, Immature Gran % (Auto) 0.200, Neut % (Auto) 36.4 L, Lymph % (Auto) 54.5 H, [place] % (Auto) 6.8, Eos % (Auto) 1.6, Baso % (Auto) 0.5, Absolute Neuts (auto) 2.0, Absolute Lymphs (auto) 3.06, Nucleated RBC % 0, Differential Comment , Sodium 141, Potassium 3.6, Chloride 111 H, Carbon Dioxide 27.0, Anion Gap 3 L, BUN 10, Creatinine 1.14 H, Estim Creat Clear Calc 85.59, Est GFR (MDRD) Af Amer 69, Est GFR (MDRD) Non-Af 57 L, BUN/Creatinine Ratio 8.8 L, Glucose 107 H, Calcium 9.4 Assessment & Plan Assessment/Plan (1) Intractable back pain: (2) Lumbar radiculopathy: PLAN: Plan The patient is a 37 y/o F w/ PMHx: COPD, Chronic anemia, Anxiety and Depression, JOSEFINA on CPAP, Morbid obesity, Chronic pain syndrome, Hx Polysubstance abuse on methadone w/ prior Heroin IV usage/Methamphetamines with Hepatitis C untreated, GERD, Chronic migraines, Tobacco use who presents to the [facility] ED on 12/16/23 with history of persistent right lower extremity, groin and lumbar back pain ongoing for the last 6 months following with her primary care with 10/2023 CT of the gagan mbar spine with evidence of degenerative disc disease with EMG the day prior to current presentation however she was unable to tolerate secondary to discomfort and the test was discontinued awakening on day of presentation with severe lumbar back pain with radiculopathy with inability to stand or walk. #1. Acute Debility, Inability to Ambulate secondary to Acute Intractable Lumbar Back Pain w/ RLE radiculopathy: Will admit to [facility], maintain on fall precautions, frequent positioning, initiate IV toradol, lidoacine patches, tizanidine, medrol dose pack, po/IV narcotic pain regimen, anti-emetics, bowel regimen. Will consult PT and OT for evaluation as well as Case management for discharge plann ing. Will obtain MRI lumbar spine. #2. Polysubstance abuse history complicated by underlying chronic pain syndrome with hepatitis C: Patient with previous usage of methadone and heroin IV reporting clean status for 4 years, will continue underlying methadone dosing given acute on chronic pain presentation, encourage continued outpatient follow- up as patient does have diagnosis of hepatitis C and is never been treated but given the timeline certainly would be a candidate if it was appropriate. Encourage continued clean status. #3. Chronic microcytic anemia: Admission hemoglobin 10.7, MCV 72.3, baseline appears 9-10, will obtain iron panel and ferritin level and trend CBC as patient appears not to have this worked up. #4. Anxiety and depression: Per current list not on regimen, encourage continued outpatient follow-up and evaluation as needed. #5. Tobacco Abuse: Encouraged cessation, inpatient consultation per RT, NR if desired. #6. Morbid Obesity: Weight loss and lifestyle changes encouraged, nutrition consulted. #7. Chronic migraines: Will temporally hold patient naproxen and given #1 will maintain on IV Toradol. #8. GERD: Per current list not on regimen, will have as needed Mylanta regimen. #9. JOSEFINA: Encourage CPAP nightly. #10. Chronic COPD: Not on any chronic regimen, encourage tobacco cessation, PRN albuterol, HOB, IS parameters. #11. DVT prophylaxis: Lovenox. #12. CODE STATUS: Full code. Charges/Coding Visit Charges Inpatient E&M: 16206 Init Hosp L2
[2023-12-16 17:10] VITALS: BP 100/66; PULSE 61; RESP 17; O2SAT 100
[2023-12-16 17:21] VITALS: BP 100/66; PULSE 61; RESP 17; TEMP 36.4; O2SAT 100
--- NOTE | 2023-12-16 18:17 | MRI_ITS ---
STUDY: MRI LUMBAR SPINE WITHOUT CONTRAST REASON FOR EXAM: Female, 37 years old. Intractable back pain, radiculopathy TECHNIQUE: Standardized fat and water weighted pulse sequences were obtained in the sagittal and axial planes. COMPARISON: CT Lumbar Spine October 28, 2023 FINDINGS: T12-L1: Normal endplates. Normal disc height, hydration and morphology. Normal bilateral facet joints. Normal central canal and bilateral lateral recesses. Normal bilateral intervertebral neural foramina. Normal lumbar lordosis. There is no substantial scoliosis. Normal conus medullaris that terminates at the L1-2 level. L1-2: Normal endplates. Normal disc height, hydration and morphology. Normal bilateral facet joints. Normal central canal and bilateral lateral recesses. Normal bilateral intervertebral neural foramina. L2-3: Normal endplates. Normal disc height, hydration and morphology. Normal bilateral facet joints. Normal central canal and bilateral lateral recesses. Normal bilateral intervertebral neural foramina. L3-4: Normal endplates. Normal disc height, hydration and morphology. Normal bilateral facet joints. Normal central canal and bilateral lateral recesses. Normal bilateral intervertebral neural foramina. L4-5: Slight retrolisthesis. Central canal and neural foramina patent. L5-S1: Grade 2 spondylolisthesis. Severe narrowing of the neural foramina bilaterally. Central canal patent. Bilateral pars defects. Normal visualized sacral ala. Normal visualized paraspinous soft tissue structures. MRI/Spine Lumbar (Routine) IMPRESSION: Grade 2 spondylolisthesis and spondylolysis L5-S1. Slight retrolisthesis L4-5. Electronically Signed: Jalen Burkett MD at 21:11 EDT ,
[2023-12-16 18:18] VITALS: BMI 41.1
[2023-12-16 18:42] VITALS: BP 125/78; PULSE 55; RESP 16; TEMP 36.6; O2SAT 99
[2023-12-16] MEDS: 0.9% Saline Lock 10 ML Syringe IV (20:14)
[2023-12-16] MEDS: 0.9% Normal Saline (1000mL) 1,000 ML 100 ML IV (20:15)
[2023-12-16] MEDS: Lidocaine 5% Patch 2 PATCH TOPICAL (20:20)
[2023-12-16 21:52] VITALS: BP 123/83; PULSE 68; RESP 16; TEMP 36.8; O2SAT 95
[2023-12-16] MEDS: Enoxaparin 40 MG/0.4 ML Syringe SC (22:00)
[2023-12-16] MEDS: tiZANidine HCl 2 MG Tablet 4 MG PO (22:02)
--- NOTE | 2023-12-16 22:03 | CPS ---
Pt refuses CPAP at this time
[2023-12-16] MEDS: Gabapentin 800 MG Tablet PO (22:06)
[2023-12-16] MEDS: Nystatin Powder 15gm Bottle 1 APPLIC TOPICAL (22:09)
[2023-12-16] MEDS: MethylPREDNISolone DosePak 4 MG BOX PO (22:41)
[2023-12-17 03:21] VITALS: BMI 41.1
[2023-12-17 04:48] VITALS: BP 121/74; PULSE 56; RESP 14; TEMP 37.3; O2SAT 93
[2023-12-17 05:23] LABS: Bacteria 0 SEEN /hpf (None Seen); Mucous, Urine 0 SEEN /hpf (<or=2+); Red Blood Cells-Urine 0 SEEN /hpf (0-5); Squamous Epithelial Cells - UA 0 SEEN /hpf (5-10); White Blood Cells 0 SEEN /hpf (0-5)
[2023-12-17] MEDS: 0.9% Saline Lock 10 ML Syringe IV ×3 (05:45→13:49)
[2023-12-17] MEDS: Ketorolac 30 MG/ML Syringe IV ×3 (05:46→22:24)
[2023-12-17 06:34] LABS: Color, Urine Yellow (Yellow); Glucose, Dipstick Normal (Normal); Ketone-Dipstick 5 mg/dl (Negative); Leukocyte Esterase-Dipstick 25 /ul (Negative); Nitrite-Dipstick Negative (Negative); Occult Blood-Urine Negative /ul (Negative); Protein-Dipstick 30 mg/dl (Negative); Urine Clarity Clear (Clear); Urine Urobilinogen 1 mg/dl (Normal)
[2023-12-17 06:35] LABS: Urine Bilirubin Dipstick 1 mg/dL (Negative)
[2023-12-17 07:17] LABS: Absolute Lymphocyte Count 0.81 X10^3/uL (0.83-4.51); Absolute Neutrophil Count 2.2 X10^3/uL (2.0-7.7); Basophil# 0.01 X10^3/uL; Basophil% 0.3 % (0-1); Hemoglobin 10.1 g/dL (12.0-15.0); Lymphocyte # 0.81 X10^3/ul (0.83-4.51); Lymphocyte % 26.5 % (19-41); Mean Corp Hgb Conc 29.7 g/dL (32-36); Mean Corpuscular Hgb 21.8 pg (27.0-32.0); Mean Corpuscular Volume 73.4 fL (81-99); Mean Platelet Vol. 10.8 fl (6.2-12.0); Monocyte# 0.03 X10^3/uL; NRBC Flagged by Analyzer 0 % (0-5); Neutrophil # 2.19 X10^3/uL (2.7-7.7); Neutrophil % 71.5 % (47-70); POSITIVE MORPHOLOGY YES; Platelet Count 226 K/mm3 (150-450); RBC Distribution Width CV 21.7 % (11.6-14.6); RBC Distribution Width SD 57.2 fl (35.1-43.9); Red Blood Count 4.63 M/mm3 (4.2-5.4); White Blood Count 3.1 K/mm3 (4.4-11.0)
[2023-12-17 07:43] LABS: ALB/GLOB Ratio 0.9 RATIO (0.9-2.4); AST(SGOT) 22 U/L (15-37); Alanine Aminotransfer ALT/SGPT 20 U/L (13-56); Albumin, Serum 3.1 g/dL (3.2-5.0); Alkaline Phosphatase 84 U/L (45-117); Anion Gap 5 (5-15); BUN 10 mg/dL (7-18); BUN/Creat Ratio 9.3 RATIO (10-20); Calcium,Total 8.9 mg/dL (8.5-10.1); Chloride 112 mmol/L (98-107); Creatinine, Serum 1.08 mg/dL (0.55-1.02); EST Glomerular Filtration Rate 60 mL/min (>60); Est Glom Filt Rate - Afr Amer 73 mL/min (>60); Estimated Creatinine Clearance 88.95 ml/min; Ferritin 12 ng/mL (8-252); Globulin 3.6 g/dL (2.2-4.2); Glucose 177 mg/dL (74-106); Iron 29 ug/dL (50-170); Iron Binding Capacity,Total 430 ug/dL (250-450); PERCENT IRON SATURATION 6.7 % (15.0-55.0); Protein, Total 6.7 g/dL (6.4-8.2); Sodium Level 138 mmol/L (136-145)
[2023-12-17 07:54] LABS: Differential Indicated SCAN CRITERIA MET
--- NOTE | 2023-12-17 07:57 | NURSING ---
pt requested for nursing staff to call the methadone clinic, this nurse spoke with the charge nurse and she said pt needs to call the clinic and if they have further questions they need to call here, and the phone number was given to the pt., Pt verbalized understand.
[2023-12-17 08:00] VITALS: O2SAT 93
[2023-12-17 08:19] LABS: Anisocytosis 2+; Differential Comment SCANNED
[2023-12-17] MEDS: Methadone 10 MG Tablet 190 MG PO (08:39)
[2023-12-17] MEDS: Enoxaparin 40 MG/0.4 ML Syringe SC ×2 (08:47→22:25)
[2023-12-17] MEDS: Nystatin Powder 15gm Bottle 1 APPLIC TOPICAL ×4 (08:48→22:24)
[2023-12-17] MEDS: Sodium Ferric Gluconat 250 MG in 0.9% Normal Saline 250 ML 135 MG IV (09:25)
--- NOTE | 2023-12-17 10:55 | CASEMGMT ---
Social Work SW met w/pt to complete SDOH. Pt already applied for [employer]. She is going through process of applying for SSI for her son and SSD for herself--she has been denied twice and is appealing. Pt is in the process of getting evicted, had a court date today, letter provided to pt by HERMELINDO Shin and faxed to courts for pt. SW gave information on [employer], [employer], [employer] and [employer], hospital van transport. Pt already utilizes PIP, has used resources from [employer] and [employer], and has had grants in the past to help w/rent. Pt spoke about her son who is 19 and autistic, can't follow directions well. We spoke about pt getting son involved with DD so that if she is not able to care for son he has some place else to go, such as a skilled nursing. Pt then states son was in a skilled nursing from 12-18, when he turned 18 he ran back home to her. Support offered to pt. HERMELINDO remains available for any additional resources and support. THEO Damico
--- NOTE | 2023-12-17 11:16 | PN.HOSP_ITS ---
Reason for Visit Reason for Visit: Diagnoses Radiculopathy, lumbar region (12/16/23) Dorsalgia, unspecified (12/16/23) Subjective Subjective Patient was admitted yesterday afternoon for worsening intractable lower back pain with difficulty with ambulation. Seen at bedside this morning. Patient was sitting up fairly comfortably in bed, conversing normally, in no acute distress. Stated she had not tried to ambulate at this morning but does co ntinue to have fairly significant pain with any movement. Denies any fevers or chills. Denies any pain at rest. No other acute concerns today. Discussed over the phone with Dr. Norris with orthopedics this afternoon. He looked at the MRI and noted that she may be a good candidate for repeat inje ction while here, but would likely only need surgery on an elective basis in the outpatient setting. Stated he would see the patient later this evening with full consultation note to follow. I placed a pain management consult per his recommendations. Objective Data Objective Data Vital Signs: Vital Signs Temp Pulse Resp BP Pulse Ox O2 Del Method 99.1 F 56 L 14 121/74 H 93 Room Air 12/17/23 04:48 12/17/23 04:48 12/17/23 04:48 12/17/23 04:48 12/17/23 08:00 12/17/23 08:00 Oxygen Delivery Method Room Air Weight: 112 kg Body Mass Index (BMI) 41.1 Intake & Output: Intake and Output for Last 24 Hours 12/15/23 12/16/23 12/17/23 23:59 23:59 23:59 Intake Total 100 / 100 975 / 975 Output Total 500 / 500 Balance 100 / 100 475 / 475 Lab / Micro Data 12/17/23 07:05 12/17/23 07:05 Labs: Laboratory Results - last 24 hr 12/16/23 15:48: WBC 5.6, RBC 4.83, Hgb 10.7 L, Hct 34.9 L, MCV 72.3 L, MCH 22.2 L, MCHC 30.7 L, RDW Std Deviation 56.3 H, RDW Coeff of Oscar 21.7 H, Plt Count 240, MPV 10.1, Immature Gran % (Auto) 0.200, Neut % (Auto) 36.4 L, Lymph % (Auto) 54.5 H, Garrett % (Auto) 6.8, Eos % (Auto) 1.6, Baso % (Auto) 0.5, Absolute Neuts (auto) 2.0, Absolute Lymphs (auto) 3.06, Nucleated RBC % 0, Differential C omment , Sodium 141, Potassium 3.6, Chloride 111 H, Carbon Dioxide 27.0, Anion Gap 3 L, BUN 10, Creatinine 1.14 H, Estim Creat Clear Calc 85.59, Est GFR (MDRD) Af Amer 69, Est GFR (MDRD) Non-Af 57 L, BUN/Creatinine Ratio 8.8 L, Glucose 107 H, Calcium 9.4 12/17/23 05:15: Urine Color Yellow, Urine Clarity Clear, Urine pH 5.0, Ur Specific [place] 1.030, Urine Protein 30 H, Urine Glucose (UA) Normal, Urine Ketones 5 H, Urine Occult Blood Negative, Urine Nitrite Negative, Urine Alvin irubin 1 H, Urine Urobilinogen 1 H, Ur Leukocyte Esterase 25 H, Urine RBC 0 SEEN, Urine WBC 0 SEEN, Ur Squamous Epith Cells 0 SEEN, Urine Bacteria 0 SEEN, Urine Mucus 0 SEEN 12/17/23 07:05: WBC 3.1 L, RBC 4.63, Hgb 10.1 L, Hct 34.0 L, MCV 73.4 L, MCH 21.8 L, MCHC 29.7 L, RDW Std Deviation 57.2 H, RDW Coeff of Oscar 21.7 H, Plt Count 226, MPV 10.8, Immature Gran % (Auto) 0.700, Neut % (Auto) 71.5 H, Lymph % (Auto) 26.5, Garrett % (Auto) 1.0, Eos % (Auto) 0.0, Baso % (Auto) 0.3, Absolute Neuts (auto) 2.2, Absolute Lymphs (auto) 0.81 L, Nucleated RBC % 0, Differential Comment SCANNED, Anisocytosis 2+, Sodium 138, Potassium 4.0, Chloride 112 H, Carbon Dioxide 21.0, Anion Gap 5, BUN 10, Creatinine 1.08 H, Estim Creat Clear Calc 88.95, Est GFR (MDRD) Af Amer 73, Est GFR (MDRD) Non-Af 60, BUN/Creatinine Ratio 9.3 L, Glucose 177 H, Calcium 8.9, Iron 29 L, TIBC 430, Iron Saturation 6.7 L, Ferritin 12, Total Bilirubin 0.20, AST 22, ALT 20, Alkaline Phosphatase 84, Total Protein 6.7, Albumin 3.1 L, Globulin 3.6, Albumin/Globulin Ratio 0.9 Radiography Diagnostic Testing: Radiology Impression Lumbar Spine MRI 12/16/23 18:17 IMPRESSION: Grade 2 spondylolisthesis and spondylolysis L5-S1. Slight retrolisthesis L4-5. Electronically Signed: Jalen Burkett MD at 21:11 EDT , Physical Exam Const alert, oriented x3 and no apparent distress Constitutional Narrative: Morbidly obese. General Appearance: cooperative and comfortable HEENT normocephalic, head/scalp atraumatic, hearing grossly normal bilaterally, nasal mucous membranes and turbinates normal and moist oral mucous membranes Eyes PERRL, EOMs intact bilaterally and conjunctivae normal Neck full ROM Chest inspection of chest normal Resp normal respiratory effort, normal air movement, no use of accessory muscles and clear to auscultation bilaterally Cardio regular rate, regular rhythm, no murmurs and peripheral pulses 2+ throughout GI normal to inspection, nondistended, normoactive bowel sounds, soft to palpation, non-tender and non-distended Back/Spine Back/Spine Narrative: No tenderness to palpation in lower back. Did not attempt any motion. Extremity normal to inspection and no pedal edema Skin no rashes or lesions noted Neuro no focal motor deficits Speech: speech normal Psych mental status grossly normal Assessment & Plan Assessment/Plan (1) Intractable back pain: (2) Lumbar radiculopathy: PLAN: Plan Patient is a 37-year-old female who presented to [facility] ED on 12/16/2023 with intractable low back pain and difficulty with ambulation. 1. Intractable low back pain and difficulty with ambulation; L5-S1 grade 2 spondylolisthesis with severe bilateral foraminal narrowing Known history of low back pain. Presented with worsening low back pain and difficulty with ambulation. No bowel or bladder incontinence. Had CT L-spine done on 10/28/2023, showed stable bilateral L5 pars defects and multilevel DDD, no other abnormalities. L-spine MRI on 12/16 showed L5-S1 grade 2 spondylolisthesis with severe bilateral foraminal narrowing. ? Orthopedics and pain management consulted. PT/OT/case management following. Discussed over the phone with Dr. Norris on 12/16, likely no need for surgery at this time and may be better candidate for pain injections, full consult note to follow later today. Continue pain management with scheduled Toradol, scheduled IV Solu-Medrol, high-dose gabapentin, lidocaine patch, IV Dilaudid and p.o. oxycodone as needed. Chronic medical conditions: ? Polysubstance abuse history, antibiotic chronic pain syndrome, history of hepatitis C: Sober for 4 years. Continue home methadone. ? Chronic microcytic anemia: Hemoglobin 10.7 on admit, baseline hemoglobin 9-10. Stable. ? Tobacco abuse: Encouraged cessation. Nicotine replacement therapy available while inpatient as needed. ? Morbid obesity: BMI 41 on admit. Complicates hospital course, care and prognosis. ? JOSEFINA: Continue CPAP at night. DVT prophylaxis: Lovenox CODE STATUS: Full code, verified Expected disposition: TBD Total clinical time spent by myself addressing the patient's medical issues, reviewing all the data, and collaborating with patient's care team: 35 minutes. Charges/Coding Visit Charges Inpatient E&M: 42166 Subs Hosp L2
--- NOTE | 2023-12-17 12:45 | CASEMGMT ---
RN?CM?SUPERVISOR NURSE?CM?to room to meet with patient for initial transition planning/care coordination?assessment.?RN?CM?introduced self and role at [facility].? Pt voices understanding and consents to?assessment?at this time.? Pt resting in bed in no distress at this time.? Pt is A/O at this time and answers all questions appropriately.?? Care providers, pharmacy, and demographics verified/updated at this time. PCP: Sancho Teresa NP Specialists:Pt goes to [facility] d/t substance abuse hx. Preferred Pharmacy: [facility] Insurance: [facility] Prescription Benefit:?Yes LNOK: 19-yr-old sonSteve Living Arrangements: Lives w/son in 2nd floor apt. Pt states there are about 30-40 steps to get up to her apt and she has a lot of difficulty on them, stating, I just take them one at a time. She states has struggled w/the stairs for about a year. Her son carries the groceries up for her. She states her son assists her to/from the bathroom, SBA when she dressing, and helps w/cooking and other household tasks. Transportation:?Pt does not drive. Her friend takes her to grocery store and she uses [facility] for appts. DME: has the following DME:?shower chair. She uses a scooter at the grocery store. She used to have a CPAP but states its been about 15 yrs ago since using. ?Pt states she needs a shower chair and either a cane or a walker. HHC/SNF: No hx of either. Discussed discharge planning. Pt states she is not sure if she will be able to return home @ discharge, stating she is not sure yet if she'll be having surgery this hospital stay or not. She also reports that she has not been OOB yet. She states, I'm scared to get up and states, If I do need surgery, I'll probably have to go to a custodial. Yoon, MS3 RN ANUPAM, made aware. PLAN:??TBD by course of treatment and progress w/therapy. PT/OT evals pending. Chava SAUCEDON?RN?CM
[2023-12-17] MEDS: tiZANidine HCl 2 MG Tablet 4 MG PO ×2 (13:48→22:23)
[2023-12-17] MEDS: Gabapentin 800 MG Tablet PO ×2 (13:52→22:24)
[2023-12-17 13:54] VITALS: BP 121/74; PULSE 50; RESP 16; TEMP 36.5; O2SAT 95
[2023-12-17] MEDS: oxyCODONE 5 MG Tablet PO (16:37)
--- NOTE | 2023-12-17 16:52 | NURSING ---
This nurse spoke with Dr. Mo, read the impressions from the MRI report to him, he responded he will plan for an epidural for tomorrow or Thursday. [place].
--- NOTE | 2023-12-17 17:17 | CONS.ORTHO ---
HPI Consult Data Date of Consult: 12/17/23 HPI Narrative HPI Narrative: KAMERON SCHWARTZ, is a 37 F who presents with low back pain right lower extremity radiation of pain and numbness. She was admitted through the ED last night. I was consulted this morning regarding the MRI results. I saw the patient in 314 and evaluated her. She has had low back pain at least on and off for the last 1 year. She says that right now her leg pain symptoms are worse than the back. The pain goes along a straight line along the lateral thigh and lateral leg goes down into the lateral toes as well. She occasionally also has pain going down the medial thigh up to the knee. She has not had any previous epidural injections. She also notices that she has numbness over the dorsal forearm and hand but more so towards the radial 3 digits. She has a history of healed necrotizing fasciitis of the left hand for which she takes gabapentin for many years. She tried getting an EMG of the right lower extremity a few days ago but was not able to complete the test because of severe pain. No results were obtained. She is yet to have EMG of upper extremities. [facility] Medical History Anxiety and depression Chronic pain COPD (chronic obstructive pulmonary disease) GERD (gastroesophageal reflux disease) Hepatitis C History of heroin abuse History of intravenous drug use in remission History of methamphetamine abuse Migraines Neuropathy Sleep apnea Smoker Home Medications methadone 10 mg/mL oral concentrate (Methadone Intensol) 190 mg PO DAILY 06/22/21 [History Last Taken 12/15/23] [id number] fumarate 18 mg-FA 600 mcg-vit K 40 mcg capsule (Multi For Her) 1 tab-cap PO DAILY 06/22/21 [History Last Taken 12/15/23] naproxen 500 mg tablet (Naprosyn) 500 mg PO BID PRN pain #20 tabs 02/25/23 [Rx Last Taken 12/15/23] cyclobenzaprine 10 mg tablet 10 mg PO TID PRN Muscle Spasm #20 TABLETS 10/28/23 [Rx Last Taken Unknown] gabapentin 800 mg tablet 800 mg PO TID 12/16/23 [History Last Taken 12/15/23] nystatin 100,000 unit/gram topical powder 1 applic topical 4X/DAY 12/16/23 [History Last Taken 12/15/23] Allergy/AdvReac Type Severity Reaction Status Date / Time levofloxacin [From Levaquin] Allergy Rash Verified 12/16/23 15:13 Penicillins Allergy Nausea Verified 12/16/23 15:13 Family History (Updated 12/16/23 @ 20:[address] Marie Coleman MD) Mother Substance abuse Osteoporosis Family History other Surgical History (Updated 12/16/23 @ 20:[address] Marie Coleman MD) History of surgery on extremity Social History (Updated 12/16/23 @ 20:[address] Marie Coleman MD) household members: children Smoking Status: Current every day smoker tobacco type: cigarettes Smoking packs per day: 1 Smoking cigarettes per day: 20.0 alcohol intake: never substance use type: former substance user Date of last use: Prior IVDA, including heroin/methamphetamines. Vital Signs Vital Signs Vital Signs: 12/16/23 17:21 12/16/23 18:26 12/16/23 18:42 Temperature 97.6 F L 97.8 F Temperature Source Oral Pulse Rate 61 55 L Respiratory Rate 17 16 Respiratory Effort Normal Respiratory Depth Normal Respiratory Pattern Normal Blood Pressure 100/66 125/78 H Blood Pressure Mean 77 93 Blood Pressure Source Monitor Blood Pressure Position Semi-Fowlers Blood Pressure Location Left Arm Pulse Ox 100 99 Oxygen Delivery Method Room Air Room Air 12/16/23 20:26 12/16/23 21:52 12/17/23 04:48 Temperature 98.2 F 99.1 F Temperature Source Oral Oral Pulse Rate 68 56 L Respiratory Rate 16 14 Respiratory Effort Normal Respiratory Depth Normal Respiratory Pattern Normal Blood Pressure 123/83 H 121/74 H Blood Pressure Mean 96 89 Blood Pressure Source Monitor Monitor Blood Pressure Position Semi-Fowlers Semi-Fowlers Blood Pressure Location Left Arm Left Arm Pulse Ox 95 93 Oxygen Delivery Method Room Air Room Air Room Air 12/17/23 07:43 12/17/23 08:00 12/17/23 13:54 Temperature 97.7 F L Temperature Source Oral Pulse Rate 50 L Respiratory Rate 16 Respiratory Effort Normal Respiratory Depth Normal Respiratory Pattern Normal Blood Pressure 121/74 H Blood Pressure Mean 89 Blood Pressure Source Monitor Blood Pressure Position Semi-Fowlers Blood Pressure Location Left Forearm Pulse Ox 93 95 Oxygen Delivery Method Room Air Room Air Room Air 12/17/23 14:05 Temperature Temperature Source Pulse Rate Respiratory Rate Respiratory Effort Normal Respiratory Depth Respiratory Pattern Blood Pressure Blood Pressure Mean Blood Pressure Source Blood Pressure Position Blood Pressure Location Pulse Ox Oxygen Delivery Method Room Air Weight Weight: 246 lb 14.684 oz Body Mass Index (BMI) 41.1 Physical Exam Narrative Examination of the back shows tenderness in the right paraspinal region in the lower lumbar spine. Neurologic evaluation of lower extremity shows 4 x 5 power in all muscles in the right lower extremity compared to 5 x 5 on the left. Weakness is likely secondary to pain. Passive straight leg raise test is positive. Logrolling is negative. Unable to fully examine right hip joint. Upper extremity shows 5 x 5 strength. Hodan's negative. Left knee reflexes exaggerated. Right knee reflex difficult to elicit. Lab / Micro Data 12/17/23 07:05 12/17/23 07:05 Labs: Laboratory Results - last 24 hr 12/17/23 05:15: Urine Color Yellow, Urine Clarity Clear, Urine pH 5.0, Ur Specific [place] 1.030, Urine Protein 30 H, Urine Glucose (UA) Normal, Urine Ketones 5 H, Urine Occult Blood Negative, Urine Nitrite Negative, Urine Bilirubin 1 H, Urine Urobilinogen 1 H, Ur Leukocyte Esterase 25 H, Urine RBC 0 SEEN, Urine WBC 0 SEEN, Ur Squamous Epith Cells 0 SEEN, Urine Bacteria 0 SEEN, Urine Mucus 0 SEEN 12/17/23 07:05: WBC 3.1 L, RBC 4.63, Hgb 10.1 L, Hct 34.0 L, MCV 73.4 L, MCH 21.8 L, MCHC 29.7 L, RDW Std Deviation 57.2 H, RDW Coeff of Oscar 21.7 H, Plt Count 226, MPV 10.8, Immature Gran % (Auto) 0.700, Neut % (Auto) 71.5 H, Lymph % (Auto) 26.5, [place] % (Auto) 1.0, Eos % (Auto) 0.0, Baso % (Auto) 0.3, Absolute Neuts (auto) 2.2, Absolute Lymphs (auto) 0.81 L, Nucleated RBC % 0, Differential Comment SCANNED, Anisocytosis 2+, Sodium 138, Potassium 4.0, Chloride 112 H, Carbon Dioxide 21.0, Anion Gap 5, BUN 10, Creatinine 1.08 H, Estim Creat Clear Calc 88.95, Est GFR (MDRD) Af Amer 73, Est GFR (MDRD) Non-Af 60, BUN/Creatinine Ratio 9.3 L, Glucose 177 H, Calcium 8.9, Iron 29 L, TIBC 430, Iron Saturation 6.7 L, Ferritin 12, Total Bilirubin 0.20, AST 22, ALT 20, Alkaline Phosphatase 84, Total Protein 6.7, Albumin 3.1 L, Globulin 3.6, Albumin/Globulin Ratio 0.9 Imaging Radiology Impression Lumbar Spine MRI 12/16/23 18:17 IMPRESSION: Grade 2 spondylolisthesis and spondylolysis L5-S1. Slight retrolisthesis L4-5. Electronically Signed: Jalen Burkett MD at 21:11 EDT , Assessment & Plan Assessment/Plan (1) Lumbar adjacent segment disease with spondylolisthesis: (2) Lumbar radiculopathy: (3) Cervical radiculopathy: PLAN: Plan I was able to review CT and MRI of the lumbar spine. CTs from October MRIs from last night. These show L5-S1 spondylolisthesis with a central disc extrusion with superior migration. Bilateral foraminal stenosis also noticed with this level. L4-5 also shows disc degeneration with lateral recess stenosis with facet arthrosis. No cervical MRI available. Screening images cervical spine show possible C5-6 disc degeneration and mild stenosis. I explained to her the imaging findings in detail. I explained to her that the right lower extremity radiation of pain is likely from the acute extrusion at L5-S1, but her chronic low back pain has been there because of L4-S1 disc degeneration with L5-S1 spondylolisthesis. Right upper extremity numbness in the forearm and hand could likely be related to cervical radiculopathy. She may obtain a cervical MRI on an outpatient basis in the future as her right upper extremity symptoms have been there for at least a year. For her lower back, I recommend options of treatment which include continued nonoperative treat measures versus surgery. In an acute state I would avoid recommend any surgical treatment. Because of the spondylolisthesis she would likely require a fusion surgery, which may be fairly high risk due to her multiple medical comorbidities. I recommend option of epidural injection through pain management. She may obtain this during the admission versus as an outpatient. She may follow-up with me on an outpatient basis. Patient was in agreement. She would like to avoid any form of surgical intervention. Charges/Coding Visit Charges Inpatient E&M: 93256 Init Hosp L3
[2023-12-17] MEDS: Lidocaine 5% Patch 2 PATCH TOPICAL (17:53)
[2023-12-17 22:30] VITALS: BP 118/70; PULSE 62; RESP 16; TEMP 36.7; O2SAT 100
[2023-12-18] MEDS: tiZANidine HCl 2 MG Tablet 4 MG PO ×3 (05:24→21:54)
[2023-12-18] MEDS: Gabapentin 800 MG Tablet PO ×3 (05:24→21:54)
[2023-12-18] MEDS: Ketorolac 30 MG/ML Syringe IV ×3 (05:25→21:54)
[2023-12-18 05:32] VITALS: BP 139/88; PULSE 62; RESP 16; TEMP 36.6; O2SAT 100
[2023-12-18 05:34] VITALS: BMI 41.3
[2023-12-18 07:40] VITALS: O2SAT 96
[2023-12-18] MEDS: Sodium Ferric Gluconat 250 MG in 0.9% Normal Saline 250 ML 135 MG IV (08:57)
[2023-12-18 09:00] VITALS: BP 137/88; PULSE 55; RESP 16; TEMP 36.8; O2SAT 98
[2023-12-18] MEDS: Enoxaparin 40 MG/0.4 ML Syringe SC ×2 (09:23→21:53)
[2023-12-18] MEDS: Nystatin Powder 15gm Bottle 1 APPLIC TOPICAL ×4 (09:24→21:55)
[2023-12-18] MEDS: Methadone 10 MG Tablet 190 MG PO (09:24)
[2023-12-18] MEDS: Lidocaine 5% Patch 2 PATCH TOPICAL (10:51)
--- NOTE | 2023-12-18 11:29 | PCM.PN.HOSP ---
Reason for Visit Reason for Visit: Diagnoses Spondylolisthesis, lumbar region (12/16/23) Other intervertebral disc degeneration, lumbar region (12/16/23) Radiculopathy, cervical region (12/16/23) Radiculopathy, lumbar region (12/16/23) Dorsalgia, unspecified (12/16/23) Subjective Subjective No acute events overnight. Patient seen at bedside this morning. Sitting up comfortably in bed, appears similar to yesterday. Patient had talked with pain management this morning and plan is for lumbar spine injection with sedation on Thursday. Patient is agreeable to this plan, is okay with staying in the hospital over the weekend. She does report having some constipation today and typically takes MiraLAX at home, was asking for bowel regimen. She also noted that she has been peeing a little less than normal and her urine has looked darker than normal, though she denies any pain or discomfort with urination. Denies any fevers or chills or any other systemic infectious symptoms. No other acute concerns at this time. Objective Data Objective Data Vital Signs: Vital Signs Temp Pulse Resp BP Pulse Ox O2 Del Method 98.2 F 55 L 16 137/88 H 98 Room Air 12/18/23 09:00 12/18/23 09:00 12/18/23 09:00 12/18/23 09:00 12/18/23 09:00 12/18/23 09:00 Oxygen Delivery Method Room Air Weight: 112.5 kg Body Mass Index (BMI) 41.3 Intake & Output: Intake and Output for Last 24 Hours 12/16/23 12/17/23 12/18/23 23:59 23:59 23:59 Intake Total 100 / 100 1645 / 1645 670 / 670 Output Total 500 / 500 Balance 100 / 100 1145 / 1145 670 / 670 Lab / Micro Data 12/18/23 11:05 12/18/23 11:05 Physical Exam Const alert, oriented x3 and no apparent distress Constitutional Narrative: Morbidly obese. General Appearance: cooperative and comfortable HEENT normocephalic, head/scalp atraumatic, hearing grossly normal bilaterally, nasal mucous membranes and turbinates normal and moist oral mucous membranes Eyes PERRL, EOMs intact bilaterally and conjunctivae normal Neck full ROM Chest inspection of chest normal Resp normal respiratory effort, normal air movement, no use of accessory muscles and clear to auscultation bilaterally Cardio regular rate, regular rhythm, no murmurs and peripheral pulses 2+ throughout GI normal to inspection, nondistended, normoactive bowel sounds, soft to palpation, non-tender and non-distended Back/Spine Back/Spine Narrative: No tenderness to palpation in lower back. Did not attempt any motion. Extremity normal to inspection and no pedal edema Skin no rashes or lesions noted Neuro no focal motor deficits Speech: speech normal Psych mental status grossly normal Assessment & Plan Assessment/Plan (1) Intractable back pain: (2) Lumbar radiculopathy: PLAN: Plan Patient is a 37-year-old female who presented to [facility] ED on 12/16/2023 with intractable low back pain and difficulty with ambulation. 1. Intractable low back pain with lumbar radiculopathy; L5-S1 grade 2 spondylolisthesis with severe bilateral foraminal narrowing Known history of low back pain. Presented with worsening low back pain and difficulty with ambulation. No bowel or bladder incontinence. Had CT L-spine done on 10/28/2023, showed stable bilateral L5 pars defects and multilevel DDD, no other abnormalities. L-spine MRI on 12/16 showed L5-S1 grade 2 spondylolisthesis with severe bilateral foraminal narrowing. ? Orthopedics evaluated on 12/16, no surgery while inpatient, recommended pain management consult for an epidural injection while hospitalized. See orthopedic note for further details. Pain management planning for epidural injection under sedation on Wednesday 12/20. Will continue IV Toradol scheduled through tomorrow. Continue low-dose IV Solu-Medrol for now. Continue high-dose gabapentin, lidocaine patch, IV Dilaudid and the oxycodone as needed. PT/OT/case management following. 2. Chronic microcytic anemia ? Hemoglobin 10.7 on admit, baseline hemoglobin 9-10. Hemoglobin has remained stable around 10, no signs of bleeding. However, iron studies showed fairly severe iron deficiency anemia. Unclear etiology for this. She does have a history of hemorrhoids which could be the cause of this. Has not had any menstrual periods for the past few years. UA showed no blood, no concern for hematuria. Given IV iron 200 mg dose on 12/16 and again on 12/17. Continue to monitor daily CBC. Can repeat iron studies in the outpatient setting in the next few weeks. 3. Constipation ? Has intermittent history for patient. Pain medications and IV iron have made this somewhat worse. Started scheduled senna and MiraLAX on 12/17, can add further meds to bowel regimen as needed. Monitor. Chronic medical conditions: ? Polysubstance abuse history, antibiotic chronic pain syndrome, history of hepatitis C: Sober for 4 years. Continue home methadone. ? Tobacco abuse: Encouraged cessation. Nicotine replacement therapy available while inpatient as needed. ? Morbid obesity: BMI 41 on admit. Complicates hospital course, care and prognosis. ? JOSEFINA: Continue CPAP at night. DVT prophylaxis: Lovenox CODE STATUS: Full code, verified Expected disposition: Home, TBD Total clinical time spent by myself addressing the patient's medical issues, reviewing all the data, and collaborating with patient's care team: 35 minutes. Charges/Coding Visit Charges Inpatient E&M: 30303 Subs Hosp L2
[2023-12-18 11:30] LABS: Hematocrit 34.3 % (37-47); Hemoglobin 10.1 g/dL (12.0-15.0); Mean Corp Hgb Conc 29.4 g/dL (32-36); Mean Corpuscular Hgb 21.8 pg (27.0-32.0); Mean Corpuscular Volume 73.9 fL (81-99); Mean Platelet Vol. 10.7 fl (6.2-12.0); POSITIVE MORPHOLOGY YES; Platelet Count 145 K/mm3 (150-450); RBC Distribution Width CV 22.2 % (11.6-14.6); RBC Distribution Width SD 58.6 fl (35.1-43.9); Red Blood Count 4.64 M/mm3 (4.2-5.4); White Blood Count 8.9 K/mm3 (4.4-11.0)
[2023-12-18 11:31] LABS: Scan Indicated on CBC? Y/N YES- FLAGS NOTED
[2023-12-18] MEDS: Polyethylene Glycol 3350 17 GM PACKET PO (11:34)
[2023-12-18] MEDS: Acetaminophen 325 MG Tablet 650 MG PO (11:41)
[2023-12-18 11:45] LABS: Anion Gap 9 (5-15); BUN 13 mg/dL (7-18); BUN/Creat Ratio 13.3 RATIO (10-20); Calcium,Total 8.4 mg/dL (8.5-10.1); Chloride 112 mmol/L (98-107); Creatinine, Serum 0.98 mg/dL (0.55-1.02); EST Glomerular Filtration Rate 67 mL/min (>60); Est Glom Filt Rate - Afr Amer 82 mL/min (>60); Estimated Creatinine Clearance 98.27 ml/min; Glucose 156 mg/dL (74-106); Potassium 4.5 mmol/L (3.5-5.1); Sodium Level 140 mmol/L (136-145)
[2023-12-18 12:27] LABS: Differential Comment SCANNED
[2023-12-18 14:35] VITALS: BP 123/65; PULSE 68; RESP 16; TEMP 36.6; O2SAT 97
[2023-12-18] MEDS: Senna/Docusate Sodium 1 Tablet 2 TABLET PO (21:54)
[2023-12-18] MEDS: 0.9% Saline Lock 10 ML Syringe IV (21:58)
[2023-12-18 22:11] VITALS: BP 120/80; PULSE 58; RESP 16; TEMP 36.7; O2SAT 100
[2023-12-18 22:12] VITALS: PULSE 58
[2023-12-19 05:32] VITALS: BMI 41.3
[2023-12-19] MEDS: tiZANidine HCl 2 MG Tablet 4 MG PO ×3 (06:05→22:56)
[2023-12-19] MEDS: Gabapentin 800 MG Tablet PO ×3 (06:05→22:56)
[2023-12-19 06:14] VITALS: BP 136/93; PULSE 82; RESP 16; TEMP 36.7; O2SAT 98
[2023-12-19 08:05] VITALS: O2SAT 95
[2023-12-19 10:52] VITALS: BP 140/70; PULSE 63; RESP 16; TEMP 37.1; O2SAT 99
[2023-12-19] MEDS: Enoxaparin 40 MG/0.4 ML Syringe SC ×2 (11:03→22:56)
[2023-12-19] MEDS: Lidocaine 5% Patch 2 PATCH TOPICAL (11:03)
[2023-12-19] MEDS: Nystatin Powder 15gm Bottle 1 APPLIC TOPICAL ×4 (11:04→22:57)
[2023-12-19] MEDS: Polyethylene Glycol 3350 17 GM PACKET PO (11:04)
[2023-12-19] MEDS: Senna/Docusate Sodium 1 Tablet 2 TABLET PO ×2 (11:05→22:57)
[2023-12-19] MEDS: Methadone 10 MG Tablet 190 MG PO (11:57)
[2023-12-19 14:03] VITALS: BP 145/64; PULSE 68; RESP 16; TEMP 36.9; O2SAT 97
[2023-12-19] MEDS: 0.9% Saline Lock 10 ML Syringe IV (14:13)
[2023-12-19] MEDS: Acetaminophen 325 MG Tablet 650 MG PO ×2 (14:14→20:15)
[2023-12-19] MEDS: oxyCODONE 5 MG Tablet PO ×2 (14:14→20:16)
--- NOTE | 2023-12-19 17:36 | PN.HOSP_ITS ---
Reason for Visit Reason for Visit: Diagnoses Spondylolisthesis, lumbar region (12/16/23) Other intervertebral disc degeneration, lumbar region (12/16/23) Radiculopathy, cervical region (12/16/23) Radiculopathy, lumbar region (12/16/23) Dorsalgia, unspecified (12/16/23) Subjective Subjective Patient was seen and examined today, she is still complaining of pain down her right leg. Patient denies any back pain at this time. Objective Data Objective Data Vital Signs: Vital Signs Temp Pulse Resp BP Pulse Ox O2 Del Method 98.5 F 68 16 145/64 H 97 Room Air 12/19/23 14:03 12/19/23 14:03 12/19/23 14:03 12/19/23 14:03 12/19/23 14:03 12/19/23 14:03 Oxygen Delivery Method Room Air Weight: 112.7 kg Body Mass Index (BMI) 41.3 Intake & Output: Intake and Output for Last 24 Hours 12/17/23 12/18/23 12/19/23 23:59 23:59 23:59 Intake Total 1645 / 1645 670 / 1270 1100 / 1100 Output Total 500 / 500 700 / 700 Balance 1145 / 1145 -30 / 570 1100 / 1100 Lab / Micro Data 12/18/23 11:05 12/18/23 11:05 Physical Exam Const alert, oriented x3 and no apparent distress Constitutional Narrative: Patient has morbid obesity General Appearance: cooperative, well kempt and well developed Orientation / Consciousness: awake, oriented to person, oriented to place and oriented to time HEENT normocephalic, head/scalp atraumatic and moist oral mucous membranes Eyes PERRL, EOMs intact bilaterally and conjunctivae normal Neck supple, no JVD, thyroid normal and no carotid bruits General: trachea midline Resp normal respiratory effort, no retractions and clear to auscultation bilaterally Auscultation: Negative for rales, rhonchi or wheezes Cardio regular rate, regular rhythm, S1 normal heart sound, S2 normal heart sound, no m urmurs, no rub and no gallops GI normal to inspection, nondistended, normoactive bowel sounds, soft to palpation, non-tender and non-distended Extremity no clubbing, cyanosis or edema Skin no rashes or lesions noted General Skin Exam: no breakdown Neuro oriented x3, CN's II-XII intact bilaterally, moves all extremities, no focal motor deficits and no sensory deficits noted Sensorium / Orientation: awake and alert Speech: speech normal Psych affect normal Assessment & Plan Assessment/Plan (1) Lumbar adjacent segment disease with spondylolisthesis: PLAN: Plan 1. Right leg and buttocks lumbar radiculopathy secondary to L5-S1 central disc extrusion-I have elected to increase her IV Solu-Medrol, she is supposed to undergo an epidural injection on Thursday. Patient will stay on her present medications including her analgesics. 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 #3 morbid obesity-complicates care, management, recovery, and prognosis Total clinical time spent by myself addressing the patient's medical issues, reviewing all of her data, and collaborating with patient's care team: 35 minutes Charges/Coding Visit Charges Inpatient E&M: 95529 Subs Hosp L2
[2023-12-19 20:00] VITALS: BP 141/79; PULSE 59; RESP 16; TEMP 36.6; O2SAT 95
[2023-12-20 02:30] VITALS: BP 154/94; PULSE 62; RESP 16; TEMP 36.7; O2SAT 97
[2023-12-20 06:00] VITALS: BMI 41.5
[2023-12-20] MEDS: Gabapentin 800 MG Tablet PO ×3 (06:22→23:01)
[2023-12-20] MEDS: tiZANidine HCl 2 MG Tablet 4 MG PO ×3 (06:22→23:02)
[2023-12-20] MEDS: 0.9% Saline Lock 10 ML Syringe IV ×2 (06:23→23:02)
[2023-12-20 07:36] VITALS: O2SAT 95
[2023-12-20 08:00] VITALS: BP 132/63; PULSE 74; RESP 18; TEMP 37.1; O2SAT 98
[2023-12-20] MEDS: oxyCODONE 5 MG Tablet PO ×3 (08:33→20:34)
[2023-12-20] MEDS: Methadone 10 MG Tablet 190 MG PO (10:53)
[2023-12-20] MEDS: Lidocaine 5% Patch 2 PATCH TOPICAL (10:55)
[2023-12-20] MEDS: Enoxaparin 40 MG/0.4 ML Syringe SC (10:56)
[2023-12-20] MEDS: Nystatin Powder 15gm Bottle 1 APPLIC TOPICAL ×4 (10:56→23:01)
[2023-12-20] MEDS: Polyethylene Glycol 3350 17 GM PACKET PO (10:56)
[2023-12-20] MEDS: Senna/Docusate Sodium 1 Tablet 2 TABLET PO ×2 (10:57→23:07)
--- NOTE | 2023-12-20 13:00 | PCM.PN.HOSP ---
Reason for Visit Reason for Visit: Diagnoses Spondylolisthesis, lumbar region (12/16/23) Other intervertebral disc degeneration, lumbar region (12/16/23) Radiculopathy, cervical region (12/16/23) Radiculopathy, lumbar region (12/16/23) Dorsalgia, unspecified (12/16/23) Subjective Subjective Patient was seen and examined today, I had a discussion with nursing today due to the fact the patient takes a large amount of methadone on a daily basis, she states she goes to the methadone clinic, she is not sure who runs a clinic but she tells me that over the last 5 years they have not tried to reduce her methadone dosage. Patient still complains of significant right leg pain Objective Data Objective Data Vital Signs: Vital Signs Temp Pulse Resp BP Pulse Ox O2 Del Method 98.7 F 74 18 132/63 H 98 Room Air 12/20/23 08:00 12/20/23 08:00 12/20/23 08:00 12/20/23 08:00 12/20/23 08:00 12/20/23 09:00 Oxygen Delivery Method Room Air Weight: 113.2 kg Body Mass Index (BMI) 41.5 Intake & Output: Intake and Output for Last 24 Hours 12/18/23 12/19/23 12/20/23 23:59 23:59 23:59 Intake Total 670 / 1270 1550 / 1550 1050 / 1050 Output Total 700 / 700 Balance -30 / 570 1550 / 1550 1050 / 1050 Lab / Micro Data 12/18/23 11:05 12/18/23 11:05 Physical Exam Narrative alert, oriented x3 and no apparent distress Constitutional Narrative: Patient has morbid obesity General Appearance: cooperative, well kempt and well developed Orientation / Consciousness: awake, oriented to person, oriented to place and oriented to time HEENT normocephalic, head/scalp atraumatic and moist oral mucous membranes Eyes PERRL, EOMs intact bilaterally and conjunctivae normal Neck supple, no JVD, thyroid normal and no carotid bruits General: trachea midline Resp normal respiratory effort, no retractions and clear to auscultation bilaterally Auscultation: Negative for rales, rhonchi or wheezes Cardio regular rate, regular rhythm, S1 normal heart sound, S2 normal heart sound, no murmurs, no rub and no gallops GI normal to inspection, nondistended, normoactive bowel sounds, soft to palpation, non-tender and non-distended Extremity no clubbing, cyanosis or edema Skin no rashes or lesions noted General Skin Exam: no breakdown Neuro oriented x3, CN's II-XII intact bilaterally, moves all extremities, no focal motor deficits and no sensory deficits noted Sensorium / Orientation: awake and alert Speech: speech normal Psych affect normal Assessment & Plan Assessment/Plan (1) Lumbar adjacent segment disease with spondylolisthesis: PLAN: Plan 1. Right leg and buttocks lumbar radiculopathy secondary to L5-S1 central disc extrusion-patient remains on IV Solu-Medrol, she will undergo an epidural injection tomorrow by pain management, I talked with Dr. Anand by phone today. 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 #3 morbid obesity-complicates care, management, recovery, and prognosis #4 continuous opiate use-patient is on a maintenance dose of a large amount of methadone-this was evidently confirmed by contacting her methadone clinic-I had a discussion with pharmacy about the patient and they confirmed that to their knowledge, the methadone clinic was contacted and her dose of methadone was confirmed. I also contacted anesthesia and discussed the case with them as the patient requested complete anesthesia for the procedure tomorrow. Total clinical time spent by myself addressing the patient's medical issues, reviewing all of her data, and collaborating with patient's care team: 35 minutes Charges/Coding Visit Charges Inpatient E&M: 23536 Subs Hosp L2
[2023-12-20] MEDS: Acetaminophen 325 MG Tablet 650 MG PO ×2 (14:29→20:34)
[2023-12-20 16:00] VITALS: BP 149/79; PULSE 63; RESP 18; TEMP 36.3; O2SAT 98
[2023-12-20 16:13] VITALS: RESP 18
[2023-12-20 20:46] VITALS: BP 130/74; PULSE 65; RESP 18; TEMP 36.8; O2SAT 98
[2023-12-21] VITALS (12 sets, daily range): BP systolic 121–155; BP diastolic 69–104; PULSE 45–70; RESP 16–18; TEMP 36.6–37.2; O2SAT 96–98; BMI 41.6
--- NOTE | 2023-12-21 05:00 | EKG12_ITS ---
Test Reason : AM EKG Blood Pressure : / mmHG Vent. Rate : 052 BPM Atrial Rate : 052 BPM P-R Int : 124 ms QRS Dur : 084 ms QT Int : 510 ms P-R-T Axes : 050 046 052 degrees QTc Int : 474 ms Sinus bradycardia Otherwise normal ECG No previous ECGs available Confirmed by PENNY RAMIREZ, KIRSTY ([id number]), writer editor GABRIELE CORCORAN ([id number]) on 12/28/2023 1:13:34 PM Referred By: MICHAEL Confirmed By:JULIETTE FRANCIS MD
[2023-12-21 07:09] LABS: Absolute Lymphocyte Count 1.74 X10^3/uL (0.83-4.51); Absolute Neutrophil Count 6.4 X10^3/uL (2.0-7.7); Basophil# 0.01 X10^3/uL; Basophil% 0.1 % (0-1); Hematocrit 33.7 % (37-47); Hemoglobin 10.1 g/dL (12.0-15.0); Lymphocyte # 1.74 X10^3/ul (0.83-4.51); Lymphocyte % 19.4 % (19-41); Mean Corpuscular Hgb 22.2 pg (27.0-32.0); Mean Corpuscular Volume 74.2 fL (81-99); Mean Platelet Vol. 9.9 fl (6.2-12.0); Monocyte# 0.53 X10^3/uL; Monocyte% 5.9 % (0-10); NRBC Flagged by Analyzer 0.3 % (0-5); Neutrophil # 6.43 X10^3/uL (2.7-7.7); Neutrophil % 71.5 % (47-70); POSITIVE MORPHOLOGY YES; Platelet Count 231 K/mm3 (150-450); RBC Distribution Width SD 59.3 fl (35.1-43.9); Red Blood Count 4.54 M/mm3 (4.2-5.4)
[2023-12-21 07:16] LABS: Differential Indicated SCAN CRITERIA MET
[2023-12-21 07:32] LABS: AST(SGOT) 45 U/L (15-37); Alanine Aminotransfer ALT/SGPT 75 U/L (13-56); Albumin, Serum 3.1 g/dL (3.2-5.0); Alkaline Phosphatase 72 U/L (45-117); Bilirubin, Direct 0.06 mg/dL (0.00-0.30); Globulin 3.7 g/dL (2.2-4.2); Protein, Total 6.8 g/dL (6.4-8.2)
[2023-12-21 07:53] LABS: Anisocytosis 1+; Polychromasia RARE
[2023-12-21] MEDS: Methadone 10 MG Tablet 190 MG PO (09:32)
--- NOTE | 2023-12-21 11:00 | RAD_ITS ---
PROCEDURE: Lumbar block. DATE OF EXAMINATION: December 21, 2023. INDICATION: Female, 38 years old. Low back pain. FLUOROSCOPY TIME (if supplied): (12 seconds) minutes/seconds. 13.22 mCGy.2 images were obtained. . RAD/Fluor Guidance for Spine Inj IMPRESSION: Fluoroscopic services provided for L5-S1 lumbar block. Electronically Signed: Jonah Muse MD at 14:10 EDT ,
[2023-12-21] MEDS: 0.9% Normal Saline (1000mL) 1,000 ML 15 ML IV (11:02)
[2023-12-21] MEDS: Lidocaine 0.5% (50 ml) 50 ML Vial (12:15)
[2023-12-21] MEDS: Triamcinolone Acetonide 40 MG/ML Vial (12:15)
[2023-12-21] MEDS: Lidocaine 5% Patch 2 PATCH TOPICAL (14:07)
[2023-12-21] MEDS: Polyethylene Glycol 3350 17 GM PACKET PO (14:08)
[2023-12-21] MEDS: tiZANidine HCl 2 MG Tablet 4 MG PO ×2 (14:09→20:48)
[2023-12-21] MEDS: Nystatin Powder 15gm Bottle 1 APPLIC TOPICAL ×2 (14:09→20:49)
[2023-12-21] MEDS: Gabapentin 800 MG Tablet PO ×2 (14:14→20:47)
--- NOTE | 2023-12-21 15:58 | PCM.PN.HOSP ---
Reason for Visit Reason for Visit: Diagnoses Spondylolisthesis, lumbar region (12/16/23) Other intervertebral disc degeneration, lumbar region (12/16/23) Radiculopathy, cervical region (12/16/23) Radiculopathy, lumbar region (12/16/23) Dorsalgia, unspecified (12/16/23) Subjective Subjective Patient was seen and examined today, she underwent an L5-S1 lumbar block today under anesthesia, this morning the patient told me that her pain had not improved. Objective Data Objective Data Vital Signs: Vital Signs Temp Pulse Resp BP Pulse Ox O2 Del Method 98.3 F 51 L 18 121/104 H 98 Room Air 12/21/23 13:49 12/21/23 13:49 12/21/23 13:50 12/21/23 13:49 12/21/23 13:49 12/21/23 13:50 Oxygen Delivery Method Room Air Weight: 113.5 kg Body Mass Index (BMI) 41.6 Intake & Output: Intake and Output for Last 24 Hours 12/19/23 12/20/23 12/21/23 23:59 23:59 23:59 Intake Total 1550 / 1550 1850 / 2090 290 / 290 Output Total 0 / 0 Balance 1550 / 1550 1850 / 2090 290 / 290 Lab / Micro Data 12/21/23 06:47 12/18/23 11:05 Labs: Laboratory Results - last 24 hr 12/21/23 06:47: WBC 9.0, RBC 4.54, Hgb 10.1 L, Hct 33.7 L, MCV 74.2 L, MCH 22.2 L, MCHC 30.0 L, RDW Std Deviation 59.3 H, RDW Coeff of Oscar 23.0 H, Plt Count 231, MPV 9.9, Immature Gran % (Auto) 3.100 H, Neut % (Auto) 71.5 H, Lymph % (Auto) 19.4, [place] % (Auto) 5.9, Eos % (Auto) 0.0, Baso % (Auto) 0.1, Absolute Neuts (auto) 6.4, Absolute Lymphs (auto) 1.74, Nucleated RBC % 0.3, Polychromasia RARE, Anisocytosis 1+, Total Bilirubin 0.20, Direct Bilirubin 0.06, AST 45 H, ALT 75 H, Alkaline Phosphatase 72, Total Protein 6.8, Albumin 3.1 L, Globulin 3.7 Radiography Diagnostic Testing: Radiology Impression Guidance Fluoroscopy 12/21/23 11:00 IMPRESSION: Fluoroscopic services provided for L5-S1 lumbar block. Electronically Signed: Jonah Muse MD at 14:10 EDT , Physical Exam Narrative alert, oriented x3 and no apparent distress Constitutional Narrative: Patient has morbid obesity General Appearance: cooperative, well kempt and well developed Orientation / Consciousness: awake, oriented to person, oriented to place and oriented to time HEENT normocephalic, head/scalp atraumatic and moist oral mucous membranes Eyes PERRL, EOMs intact bilaterally and conjunctivae normal Neck supple, no JVD, thyroid normal and no carotid bruits General: trachea midline Resp normal respiratory effort, no retractions and clear to auscultation bilaterally Auscultation: Negative for rales, rhonchi or wheezes Cardio regular rate, regular rhythm, S1 normal heart sound, S2 normal heart sound, no murmurs, no rub and no gallops GI normal to inspection, nondistended, normoactive bowel sounds, soft to palpation, non-tender and non-distended Extremity no clubbing, cyanosis or edema Skin no rashes or lesions noted General Skin Exam: no breakdown Neuro oriented x3, CN's II-XII intact bilaterally, moves all extremities, no focal motor deficits and no sensory deficits noted Sensorium / Orientation: awake and alert Speech: speech normal Psych affect normal Assessment & Plan Assessment/Plan (1) Lumbar adjacent segment disease with spondylolisthesis: PLAN: Plan 1. 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 #3 morbid obesity-complicates care, management, recovery, and prognosis #4 continuous opiate use-patient is on a maintenance dose of a large amount of methadone-this was evidently confirmed by contacting her methadone clinic-I had a discussion with pharmacy about the patient and they confirmed that to their knowledge, the methadone clinic was contacted and her dose of methadone was confirmed. I also contacted anesthesia and discussed the case with them as the patient requested complete anesthesia for the procedure tomorrow. Total clinical time spent by myself addressing the patient's medical issues, reviewing all of her data, and collaborating with patient's care team: 35 minutes Charges/Coding Visit Charges Inpatient E&M: 94688 Subs Hosp L2
[2023-12-21] MEDS: Senna/Docusate Sodium 1 Tablet 2 TABLET PO (20:46)
[2023-12-21] MEDS: oxyCODONE 5 MG Tablet PO (20:46)
[2023-12-21] MEDS: Acetaminophen 325 MG Tablet 650 MG PO (20:47)
[2023-12-22 04:00] VITALS: BP 126/80; PULSE 60; RESP 18; TEMP 36.7; O2SAT 96
[2023-12-22 04:58] VITALS: BMI 43.9
[2023-12-22 06:15] VITALS: BP 150/87; PULSE 56; RESP 18; TEMP 36.6; O2SAT 100
[2023-12-22] MEDS: Gabapentin 800 MG Tablet PO (06:31)
[2023-12-22] MEDS: tiZANidine HCl 2 MG Tablet 4 MG PO (06:31)
[2023-12-22 08:31] VITALS: O2SAT 98
[2023-12-22 10:36] VITALS: BP 147/87; PULSE 78; RESP 18; TEMP 36.6; O2SAT 97
[2023-12-22] MEDS: Polyethylene Glycol 3350 17 GM PACKET PO (10:41)
[2023-12-22] MEDS: Methadone 10 MG Tablet 190 MG PO (10:41)
[2023-12-22] MEDS: Senna/Docusate Sodium 1 Tablet 2 TABLET PO (10:42)
[2023-12-22] MEDS: Lidocaine 5% Patch 2 PATCH TOPICAL (10:43)
[2023-12-22] MEDS: Nystatin Powder 15gm Bottle 1 APPLIC TOPICAL (10:43)
--- NOTE | 2023-12-22 11:33 | DCINST_ITS ---
Discharge Instructions Diet Discharge Diet: No restrictions Activity Discharge Activity: Return to Normal Activity Weight Bearing Status: Full weight bearing Follow Up Care Test Results: Test results from this visit will be discussed in further detail at your follow- up appointment, if applicable. Discharge Plan Admission Admit Date/Time: 12/16/23 16:53 Primary Reason for Your Visit: right leg radicular pain Attending Provider: Jay Arreaga Primary Care Provider: Sancho Teresa NP Consulting Providers: Morales Norris; Roddy Anand; Jay Arreaga; Devon Kim Discharge Orders/Prescriptions Prescriptions: New gabapentin 600 mg tablet 1,200 mg PO TID Qty: 180 0RF prednisone 20 mg tablet 40 mg PO DAILY Qty: 14 0RF Continued methadone [Methadone Intensol] 10 mg/mL Concentrate 190 mg PO DAILY Multi For Her 18 mg iron-600 mcg-40 mcg Capsule 1 tab-cap PO DAILY naproxen [Naprosyn] 500 mg tablet 500 mg PO BID PRN (Reason: pain) Qty: 20 0RF cyclobenzaprine 10 mg tablet 10 mg PO TID PRN (Reason: Muscle Spasm) Qty: 20 0RF nystatin 100,000 unit/gram powder 1 applic topical 4X/DAY Discontinued gabapentin 800 mg tablet 800 mg PO TID Referrals / Follow Up: Sancho Teresa NP, COMMUNICATIONS TECHNICIAN-C [Primary Care Provider] - Disposition Disposition (needs filled in before D/C Order can be placed): Home, Self Care
--- NOTE | 2023-12-22 11:50 | PCM.DC.SUM ---
Providers Date of Admission: 12/16/23 Date of Discharge: 12/22/23 Primary Care Physician: Sancho Teresa, DULCE Consultations 12/17/23 08:07 Consult: Orthopedics Routine Consulting Provider: Morales Norris Reason for Consult: severe LBP w/ radiculopathy, L5-S1 grade 2 spondylolith EMERGENT Consult: No MD Notified: Yes Date Notified: 12/17/23 Time Notified: 11:15 Method of Notification: via bandage winding machine operator 12/17/23 15:05 Consult: Pain Management Routine Consulting Provider: Roddy Anand Reason for Consult: severe low back pain, ortho on, recs for possible injections, no surg now EMERGENT Consult: No MD Notified: Yes Date Notified: 12/17/23 Time Notified: 16:52 Method of Notification: spoke on phone Reason For Visit: ACUTE INTRACTABLE BACK PAIN, RADICULOPATHY Diagnosis Discharge Diagnosis (1) Lumbar adjacent segment disease with spondylolisthesis: Status: Acute Code(s): M51.36 - Other intervertebral disc degeneration, lumbar region; M43.16 - Spondylolisthesis, lumbar region Plan 1. 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 #3 morbid obesity-complicates care, management, recovery, and prognosis #4 continuous opiate use-patient is on a maintenance dose of a large amount of methadone-this was evidently confirmed by contacting her methadone clinic-I had a discussion with pharmacy about the patient and they confirmed that to their knowledge, the methadone clinic was contacted and her dose of methadone was confirmed. I also contacted anesthesia and discussed the case with them as the patient requested complete anesthesia for the procedure tomorrow. Total clinical time spent by myself addressing the patient's medical issues, reviewing all of her data, and collaborating with patient's care team: 35 minutes Medications at Discharge Home Medications methadone 10 mg/mL oral concentrate (Methadone Intensol) 190 mg PO DAILY 06/22/21 [id number] fumarate 18 mg-FA 600 mcg-vit K 40 mcg capsule (Multi For Her) 1 tab-cap PO DAILY 06/22/21 naproxen 500 mg tablet (Naprosyn) 500 mg PO BID PRN pain #20 tabs 02/25/23 cyclobenzaprine 10 mg tablet 10 mg PO TID PRN Muscle Spasm #20 TABLETS 10/28/23 nystatin 100,000 unit/gram topical powder 1 applic topical 4X/DAY 12/16/23 gabapentin 600 mg tablet 1,200 mg (2 x 600 mg) PO TID #180 tabs 12/22/23 prednisone 20 mg tablet 40 mg (2 x 20 mg) PO DAILY #14 tabs 12/22/23 Hospital Course Operations None Procedures - (L5-S1 lumbar block) Summary of Care Provided Minutes Spent on Discharge: 31 Hospital Course: This 38-year-old white female was seen in the emergency room at [facility] with complaints of pain radiating down her right leg. She had complained of this discomfort for approximately 6 months, she had a CT of the lumbar spine which showed degenerative disease in the past. Patient had been set up to get an EMG on her right leg but she could not tolerate the test and it was not finished. Patient states she woke the day she was seen in the emergency room this time with increased pain down her right leg and came for evaluation. It was not felt that further imaging studies in the emergency room would be of any help, patient's labs were unremarkable and she was admitted to [place] [id number] and given IV analgesics and corticosteroids. Patient was on a large amount of methadone chronically as an outpatient-she was a patient at the methadone clinic in [facility]. Patient was seen in consultation by orthopedic surgery for evaluation of possible future surgery, it was decided by the patient and the orthopedic surgeon that the patient would consider having something done as an outpatient but that she was not interested in having any surgery done during her hospitalization. Patient was set up for a nerve block but she wanted anesthesia to be present so she could be fully anesthetized, this had to be put off until the following week, treatment in the hospital including the IV corticosteroids did not seem to help with her discomfort. On 12/21/2023, patient underwent an L5-S1 lumbar nerve block, patient stated that this did not help her pain however. On 12/22/2023, patient was seen and examined: On examination she appeared in good health and spirits, patient was morbidly obese, she does not appear to be in any distress. Vital signs as documented. Skin warm and dry and without overt rashes. Neck without JVD, thyroid appears normal, trachea is midline, neck is supple. Lungs clear, normal air movement was noted. Heart exam notable for regular rhythm, normal sounds and absence of murmurs, rubs or gallops. Abdomen unremarkable and without evidence of organomegaly, masses, or abdominal aortic enlargement, bowel sounds are present in all 4 quadrants, no abdominal tenderness was noted. Extremities nonedematous, no cyanosis was noted, no clubbing was noted. Neuro: Cranial nerves II through XII are grossly intact, no focal motor deficits were noted, sensation to light touch and pinprick is intact, motor exam 5/5 throughout. Psych: Patient is alert and oriented x3, she does not appear anxious or depressed, she does not appear agitated. Patient was discharged home in stable condition on 12/22/2023, I made an adjustment in her gabapentin dose at the time of discharged home and she was placed on additional prednisone for few days. Weight / BMI Weight Weight: 119.9 kg Body Mass Index (BMI) 43.9 ABG / Lab / Microbiology Data 12/21/23 06:47 12/18/23 11:05 Radiography Diagnostic Testing: Radiology Impression Guidance Fluoroscopy 12/21/23 11:00 IMPRESSION: Fluoroscopic services provided for L5-S1 lumbar block. Electronically Signed: Jonah Muse MD at 14:10 EDT , D/C Instructions Discharge Diet: No restrictions Weight Bearing Status: Full weight bearing Meaningful Use Info Meaningful Use Meaningful Use Diagnoses (Choose all that apply): None applicable Ischemic Stroke Statin Dosing Therapy Reference: STATIN DOSE THERAPY REFERENCE: * Patients > 75 years receive moderate or high dose statin therapy. * Patients 75 years or YOUNGER should receive HIGH intensity statin dose unless contraindicated. You will be required to document reason for non-treatment if statin daily dose does not meet guidelines. HIGH DOSE STATIN THERAPY DAILY Atorvastatin > than or = to 40 mg Rosuvastatin > than or = to 20 mg Amlodipine + Atorvastatin > than or = to 2.5/40 mg Ezetimibe + Simvastatin 10/80 mg Simvastatin 80mg Discharge Plan Admission Admit Date/Time: 12/16/23 16:53 Primary Reason for Your Visit: right leg radicular pain Attending Provider: Jay Arreaga Primary Care Provider: Sancho Teresa NP Consulting Providers: Morales Norris; Roddy Anand; Jay Arreaga; Devon Kim Discharge Orders/Prescriptions Prescriptions: New gabapentin 600 mg tablet 1,200 mg PO TID Qty: 180 0RF prednisone 20 mg tablet 40 mg PO DAILY Qty: 14 0RF Continued methadone [Methadone Intensol] 10 mg/mL Concentrate 190 mg PO DAILY Multi For Her 18 mg iron-600 mcg-40 mcg Capsule 1 tab-cap PO DAILY naproxen [Naprosyn] 500 mg tablet 500 mg PO BID PRN (Reason: pain) Qty: 20 0RF cyclobenzaprine 10 mg tablet 10 mg PO TID PRN (Reason: Muscle Spasm) Qty: 20 0RF nystatin 100,000 unit/gram powder 1 applic topical 4X/DAY Discontinued gabapentin 800 mg tablet 800 mg PO TID Referrals / Follow Up: Sancho Teresa JUNIOR AUTOMATION ENGINEER, JUNIOR AUTOMATION ENGINEER-C [Primary Care Provider] - Disposition Disposition (needs filled in before D/C Order can be placed): Home, Self Care Charges/Coding Visit Charges Inpatient E&M: 81870 Disch Hosp >30min
--- NOTE | 2023-12-22 12:57 | CASEMGMT ---
RN CM into pt. room, pt sittin up in bed stated her ride is here at 1:00 to pick her up. Provided pt with a verbal local in network list of DME providers, pt chose [facility]. Referral sent to [facility] via [facility]. Provide pt with walker and she signed consignment form. Denied any further needs.
--- NOTE | 2023-12-22 13:05 | PHA.DC_ITS ---
Pharmacy [facility] has performed discharge medication reconciliation and counseling for this patient. The patient's discharge medication list was reviewed for discrepancies and discrepancies were resolved. The patient was counseled on the following discharge medications and changes in medications for homegoing were reviewed. The Reason for Use, instructions for use, and potential side effects were reviewed for all new medications. The patient's questions regarding all of their medications were answered. 1. Gabapentin 1.2 grams TID 2. Prednisone 40 mg PO daily x 7 days The patient was able to verbally demonstrate an understanding of their discharge medications. Medications at Discharge Home Medications methadone 10 mg/mL oral concentrate (Methadone Intensol) 190 mg PO DAILY 06/22/21 [id number]-qcv-[id number] fumarate 18 mg-FA 600 mcg-vit K 40 mcg capsule (Multi For Her) 1 tab-cap PO DAILY 06/22/21 naproxen 500 mg tablet (Naprosyn) 500 mg PO BID PRN pain #20 tabs 02/25/23 cyclobenzaprine 10 mg tablet 10 mg PO TID PRN Muscle Spasm #20 TABLETS 10/28/23 nystatin 100,000 unit/gram topical powder 1 applic topical 4X/DAY 12/16/23 gabapentin 600 mg tablet 1,200 mg (2 x 600 mg) PO TID #180 tabs 12/22/23 prednisone 20 mg tablet 40 mg (2 x 20 mg) PO DAILY #14 tabs 12/22/23
== END 2023-12-22 13:15 | disposition home or self-care (01) | DRG 347 ==
LOC: ED 17:05 → MS3 17:13
PROVIDERS: Anesthesiology; Anesthesiology Pain Medicine; Hospitalist; Admitting Provider Family Medicine; Emergency Provider Emergency Medicine; PCP Nurse Practitioner Family; Visit Provider Internal Medicine
PROC: 3E0S3BZ Introduction of Anesthetic Agent into Epidural Space, Percutaneous Approach (ICD-10-PCS; CPT 62322; principal; 2023-12-21 11:55)
DX: M51.17 Intervertebral disc disorders with radiculopathy, lumbosacral region (principal); D50.9 Iron deficiency anemia, unspecified; E66.01 Morbid (severe) obesity due to excess calories; F11.11 Opioid abuse, in remission; F17.210 Nicotine dependence, cigarettes, uncomplicated; J44.9 Chronic obstructive pulmonary disease, unspecified; Z68.41 Body mass index [BMI] 40.0-44.9, adult; F32.A Depression, unspecified; G43.709 Chronic migraine without aura, not intractable, without status migrainosus; M43.16 Spondylolisthesis, lumbar region; M47.26 Other spondylosis with radiculopathy, lumbar region; M51.16 Intervertebral disc disorders with radiculopathy, lumbar region; G47.33 Obstructive sleep apnea (adult) (pediatric); M48.07 Spinal stenosis, lumbosacral region; F41.9 Anxiety disorder, unspecified; K21.9 Gastro-esophageal reflux disease without esophagitis; K59.00 Constipation, unspecified; G89.4 Chronic pain syndrome; R53.81 Other malaise; Z79.1 Long term (current) use of non-steroidal anti-inflammatories (NSAID); Z79.891 Long term (current) use of opiate analgesic; Z79.899 Other long term (current) drug therapy; Z86.19 Personal history of other infectious and parasitic diseases
CPT/HCPCS: 36415; 64483; 72148; 77003; 80048; 80053; 80076; 81001; 82728; 83540; 83550; 85025; 85027; 93005; 94668; 97110; 97116; 97162; 97166; 97530; 97535; 99285; J7030; J7040; J7050; A4216; J2916

== ENCOUNTER 2023-12-29 16:14 | Emergency (ER) | payer MEDICAID, SELFPAY ==
[2023-12-29 16:15] VITALS: BP 156/95; PULSE 127; RESP 20; TEMP 36.6; O2SAT 95
--- NOTE | 2023-12-29 16:49 | EDS_ITS ---
HPI History of Present Illness Chief Complaint: Lower Extremity Injury Detail of Chief Complaint: Lower extremity exam pain/trauma, right foot Informant: patient Occured/Mechanism Mechanism/Context: Yes injury and Yes blunt trauma Comment: Patient fell. She reports loss of conscious. Onset/Context/Timing Context: Sudden Onset Timing: Continuous and Waxes and wanes Quality of Pain: Dull and Throbbing Location: Lateral right foot Current Severity: Mild Worsened by: Walking Relieved by: Nothing Associated Symptoms Associated Symptoms: Negative for Parasthesia, Weakness or Loss of Funtion Narrative Narrative: Patient is a 38-year-old female. She has history of intractable back pain, COPD, opiate abuse, cervical radiculopathy who presents with right foot pain due to trauma yesterday. She denies fever, chills night sweats. She denies paresthesia, anesthesia or motor weakness. She denies drainage from the wound on the dorsum of her right foot. She denies history of diabetes. She is not immune suppressed. She was recently admitted for epidural injection. She is on gabapentin, NSAIDs and methadone. She went grocery shopping prior to coming to the emergency department. Prior similar symptoms: No Recent Illness/Hospitalization: Yes PFSH PFSH Medical History Anxiety and depression Chronic pain COPD (chronic obstructive pulmonary disease) GERD (gastroesophageal reflux disease) Hepatitis C History of heroin abuse History of intravenous drug use in remission History of methamphetamine abuse Migraines Neuropathy Sleep apnea Smoker Home Medications methadone 10 mg/mL oral concentrate (Methadone Intensol) 190 mg PO DAILY 06/22/21 [History Last Taken 12/15/23] [id number] fumarate 18 mg-FA 600 mcg-vit K 40 mcg capsule (Multi For H er) 1 tab-cap PO DAILY 06/22/21 [History Last Taken 12/15/23] naproxen 500 mg tablet (Naprosyn) 500 mg PO BID PRN pain #20 tabs 02/25/23 [Rx Last Taken 12/15/23] cyclobenzaprine 10 mg tablet 10 mg PO TID PRN Muscle Spasm #20 TABLETS 10/28/23 [Rx Last Taken Unknown] nystatin 100,000 unit/gram topical powder 1 applic topical 4X/DAY 12/16/23 [History Last Taken 12/15/23] gabapentin 600 mg tablet 1,200 mg (2 x 600 mg) PO TID #180 tabs 12/22/23 [Rx Last Taken Unknown] prednisone 20 mg tablet 40 mg (2 x 20 mg) PO DAILY #14 tabs 12/22/23 [Rx Last Taken Unknown] clindamycin HCl 150 mg capsule 300 mg (2 x 150 mg) PO 4X/DAY #20 CAPSULES 12/29/23 [Rx Last Taken Unknown] naproxen 500 mg tablet 500 mg PO BID #14 tabs 12/29/23 [Rx Last Taken Unknown] Allergy/AdvReac Type Severity Reaction Status Date / Time levofloxacin [From Levaquin] Allergy Rash Verified 12/29/23 16:17 Penicillins Allergy Nausea Verified 12/29/23 16:17 Family History Mother Substance abuse Osteoporosis Surgical History History of surgery on extremity Social History household members: children Smoking Status: Current every day smoker tobacco type: cigarettes alcohol intake: never substance use type: former substance user Date of last use: Prior IVDA, including heroin/methamphetamines. ROS ROS ED Constitutional Constitutional ED: Denies chills, fever(s), subjective, sweats or weight loss Eyes Eyes: Denies blurry vision Cardiovascular Cardiovascular: Denies chest pain, orthopnea, palpitations, paroxysmal nocturnal dyspnea or racing heartbeat Respiratory/Chest Respiratory/Chest: Denies cough, dyspnea, dyspnea on exertion, orthopnea or paroxysmal nocturnal dyspnea Gastrointestinal Gastrointestinal: Denies abdominal pain, diarrhea, nausea or vomiting Musculoskeletal Musculoskeletal: Reports back pain and other Details: Back pain is chronic Neurologic Neurologic: Denies headache(s), paresthesias or weakness Psychiatric Psychiatric: Reports depression Hematologic/Lymphatic Hematologic/Lymphatic: Denies easy bleeding or easy bruising EXAM Physical Exam Const Vital Signs: 12/29/23 16:15 Temperature 98 F Temperature Source Temporal Pulse Rate 127 H Respiratory Rate 20 H Blood Pressure 156/95 H Blood Pressure Mean 115 Pulse Ox 95 Oxygen Delivery Method Room Air Positive well nourished, well developed and obese General Appearance ED: well developed and NAD Nutritional Appearance: obese HEENT normocephalic and atraumatic Eyes PERRL Eyes Narrative: Extract muscles are intact. Neck full ROM Resp normal respiratory effort, no retractions and clear to auscultation bilaterally Cardio regular rhythm, S1 normal heart sound, S2 normal heart sound and no murmurs Rate: tachycardic Back/Spine no CVA tenderness Extremity Negative for normal to inspection Extremity Narrative: There is an abrasion noted dorsum of the right foot anterior to the ankle. There is area of erythema that is 2 cm in radius from the wound. There is no lymphangitis. There are no popliteal lymphadenopathy. There is no fluctuance. Patient also has a swollen ecchymotic right little toe. There is bruising noted over the proximal phalanx of the third and fourth toe. There is area erythema proximal dorsal lateral aspect the right foot. This is separate from the other wounds. DP and PT pulse are palpable. General Extremety ED: Yes weight-bearing difficulty; Negative for cyanosis or edema General Extremity: weight-bearing difficulty; Negative for cyanosis or edema Neuro oriented x3, CN's II-XII intact bilaterally, moves all extremities and no sensory deficits noted Neuro Narrative: EHL is intact. 5 or 5 strength with plantar dorsiflexion of the foot. Normal sensation over L3-S1 dermatome. Patellar and ankle DTR 1+. Motor Exam: strength 5/5 throughout Deep Tendon Reflexes: Rt Patellar (L4): 1+, Lt Patellar (L4): 1+, Rt Ankle (S1): 1+ and Lt Ankle (S1): 1+ Deep Tendon Reflexes Back: Rt Patellar (L4): 1+, Lt Patellar (L4): 1+, Rt Ankle (S1): 1+ and Lt Ankle (S1): 1+ Plantar Reflex: Downgoing: bilateral Psych mental status grossly normal Skin No no wounds Lesions: No no lesions Rashes: No no rashes MDM MDM MDM Narrative Medical decision making narrative: Will obtain x-ray to evaluate for contusion versus fracture. Patient does have evidence of cellulitis. Since her allergy to penicillin is upset stomach she will receive cephalexin since there is no concern for MRSA. Radiography Diagnostic Testing: Clinical Impression(s) from Imaging Studies Foot X-Ray 12/29/23 16:50 IMPRESSION: Displaced fracture of the shaft of fifth proximal phalanx. This may a pathologic fracture or focal lytic lesion such as bone cyst. Follow-up to complete healing recommended. Electronically Signed: Rafi Santo MD at 17:10 EDT , Procedures Other Procedures Procedure(s): Little toe was reduced by lateral rotation and axial distraction. Patient was seen walking in the [place] prior to x-ray without postop shoe. Will see if the fracture is read displaced. I was informed at 1843. Patient is on a wait for x-ray. She was seen with the shoe on. Nurse has been instructed to put a postop shoe. Patient been informed that the fracture may have moved and if it has moved she may require surgical repair. Discharge Plan Triage Chief Complaint: Lower Extremity Injury ED Provider: Emanuel Gilbert Dx/Rx/DC Orders Clinical Impression: Displaced fracture of proximal phalanx of lesser toe of right foot, Abrasion of foot, Cellulitis of foot Instructions: ED Cellulitis, ED Fracture, Toe, Closed Prescriptions: New naproxen 500 mg tablet 500 mg PO BID Qty: 14 0RF clindamycin HCl 150 mg capsule 300 mg PO 4X/DAY Qty: 20 0RF No Action methadone [Methadone Intensol] 10 mg/mL Concentrate 190 mg PO DAILY Multi For Her 18 mg iron-600 mcg-40 mcg Capsule 1 tab-cap PO DAILY naproxen [Naprosyn] 500 mg tablet 500 mg PO BID PRN (Reason: pain) Qty: 20 0RF cyclobenzaprine 10 mg tablet 10 mg PO TID PRN (Reason: Muscle Spasm) Qty: 20 0RF nystatin 100,000 unit/gram powder 1 applic topical 4X/DAY gabapentin 600 mg tablet 1,200 mg PO TID Qty: 180 0RF prednisone 20 mg tablet 40 mg PO DAILY Qty: 14 0RF Primary Care Provider: Sancho Teresa NP Referrals: Chapincito Goodwin DPM [Med Staff - Active Staff] - 5-7 Days Sancho Teresa NP, [employer] [Primary Care Provider] - Disposition Disposition: Home, Self Care
--- NOTE | 2023-12-29 16:50 | RAD_ITS ---
STUDY: X-RAY - RIGHT FOOT CLINICAL: Female, 38 years old. Injury/Pain TECHNIQUE: 3 view(s) of the foot. COMPARISON: None. FINDINGS: Displaced fracture of the shaft of fifth proximal phalanx. This may a pathologic fracture or focal lytic lesion such as bone cyst. Follow-up to complete healing recommended. Deformity of the fourth metatarsal consistent with previous healed fracture. Normal talus, calcaneus, and tarsal bones. Normal visualized subtalar, talonavicular, calcaneocuboid, tarsal and tarsometatarsal articulations. Normal metatarsi. There is degenerative arthrosis of the metatarsophalangeal joint of the hallux with a hallux valgus deformity. Normal tibial and fibular sesamoid bones. Normal interphalangeal joint of the great toe. Normal phalanges of the great toe. Normal second through fifth metatarsophalangeal joints. Normal interphalangeal joints. Exact for the fifth proximal phalanx, normal phalanges of the toes. The soft tissue structures are unremarkable. RAD/Foot min 3 Views IMPRESSION: Displaced fracture of the shaft of fifth proximal phalanx. This may a pathologic fracture or focal lytic lesion such as bone cyst. Follow-up to complete healing recommended. Electronically Signed: Rafi Santo MD at 17:10 EDT ,
== END 2023-12-29 18:53 | disposition home or self-care (01) ==
PROVIDERS: Emergency Provider Emergency Medicine; PCP Nurse Practitioner Family; Visit Provider Emergency Medicine
DX: S92.511A Displaced fracture of proximal phalanx of right lesser toe(s), initial encounter for closed fracture (principal); F11.11 Opioid abuse, in remission; F15.11 Other stimulant abuse, in remission; J44.9 Chronic obstructive pulmonary disease, unspecified; L03.115 Cellulitis of right lower limb; X58.XXXA Exposure to other specified factors, initial encounter; M54.9 Dorsalgia, unspecified; G89.29 Other chronic pain; F17.210 Nicotine dependence, cigarettes, uncomplicated; Z88.0 Allergy status to penicillin; Z79.899 Other long term (current) drug therapy
CPT/HCPCS: 28515; 73630; 99282